=== PATIENT | female | born 1945 | race Caucasian/White ===

== ENCOUNTER 2017-01-02 12:03 | Inpatient (IN) | payer MEDICARE, BC, OTHER ==
[2017-01-02] VITALS (7 sets, daily range): BP systolic 100–128; BP diastolic 53–72; PULSE 75–98; RESP 18; TEMP 99.2–100.8; O2SAT 93–100
[~2017-01-02] VITALS: Ht 162.6 cm; Wt 50.3 kg
[~2017-01-02 12:03] MED LIST: BUDE3CAP PO; DRIS50002 PO; FENO50TA PO; NORT25CA PO; OXYC-360 PO
[2017-01-02 13:42] LABS: AUTOMATED NEUTROPHIL # 19.3 TH/MM3 (1.8-7.7); BASOPHIL # 0.1 TH/MM3 (0-0.2); BASOPHIL % 0.4 % (0.0-2.0); HEMATOCRIT 34.2 % (35.0-46.0); HEMO FLAGS DIFF FINAL; LYMPH % 6.1 % (9.0-44.0); LYMPHOCYTE # 1.3 TH/MM3 (1.0-4.8); MEAN CELL VOLUME 92.1 FL (80.0-100.0); MEAN CORPUSCULAR HEMOGLOBIN 31.1 PG (27.0-34.0); MEAN CORPUSCULAR HGB CONC 33.8 % (32.0-36.0); NEUT % 87.5 % (16.0-70.0); PLATELET COUNT 389 TH/MM3 (150-450); RED BLOOD COUNT 3.71 MIL/MM3 (4.00-5.30); RED CELL DISTRIBUTION WIDTH 14.1 % (11.6-17.2)
[2017-01-02] MEDS ORDERED: cefTRIAXone INJ 1,000 MG in SODIUM CHLORIDE 0.9% INJ 100 ML IV ONE (13:45)
[2017-01-02 13:54] LABS: PROTHROMBIN TIME - PATIENT 11.3 SEC (9.8-11.6)
--- NOTE | 2017-01-02 13:54 | RADRPT ---
EXAM DATE/TIME: 01/02/2017 13:45 [facility] COMPARISON: No previous studies available for comparison. INDICATIONS : Weakness. MEDICAL HISTORY : None. SURGICAL HISTORY : None. ENCOUNTER: Initial ACUITY: 1 day PAIN SCORE: 5/10 LOCATION: Bilateral chest FINDINGS: A single view of the chest demonstrates consolidation right upper lobe in the periphery. Left lung cl ear. Are normal sinus The cardiomediastinal contours are unremarkable. Osseous structures are intact . CONCLUSION: Consolidation in the periphery of the right upper lobe. Jean Carlos Cobian MD on January 02, 2017 at 13:50 Board Certified Radiologist. This report was verified electronically.
[2017-01-02 13:56] LABS: APTT (PATIENT) 29.9 SEC (24.3-30.1)
[2017-01-02 14:03] LABS: ALKALINE PHOSPHATASE 58 U/L (45-117); ALT (GPT) 10 U/L (10-53); ANION GAP 11 MEQ/L (5-15); AST (GOT) 27 U/L (15-37); BICARBONATE 23.6 MEQ/L (21.0-32.0); BLOOD UREA NITROGEN 16 MG/DL (7-18); CHLORIDE 98 MEQ/L (98-107); GLOMERULAR FILTRATION RATE 50 ML/MIN (>89); POTASSIUM 4.1 MEQ/L (3.5-5.1); SODIUM (NA) 133 MEQ/L (136-145); TOTAL BILIRUBIN ADULT 0.8 MG/DL (0.2-1.0)
[2017-01-02] MEDS ORDERED: AZITHROMYCIN INJ 500 MG in SODIUM CHLOR 0.9% 250 ML INJ 250 ML IV ONE (14:30)
[2017-01-02 14:39] LABS: BACTERIA, URINE MANY /hpf; BLOOD, URINE MOD (NEG); COMMENT (UR) CATH-CULTURE IND; CULTURE IF INDICATED CATH CULTURE IND; GLUCOSE,URINE NEG (NEG); KETONE, URINE NEG (NEG); MUCUS URINE FEW /lpf (OCC); NITRITE,URINE POS (NEG); PH, URINE 5.5 (5.0-8.5); SQUAMOUS EPITHELIAL CELL URINE 2 /hpf (0-5); URINE COLOR YELLOW (YELLW/STRAW)
[2017-01-02] MEDS ORDERED: SODIUM CHLOR 0.9% 1000 ML INJ 1,000 ML IV ONE ×2 (15:00→15:15)
--- NOTE | 2017-01-02 15:08 | PD ---
HPI Chief Complaint: General Weakness Time Seen by Provider: 13:03 Travel History International Travel<30 days: No Contact w/Intl Traveler<30days: No Traveled to known affect area: No History of Present Illness HPI Shouldn't is a 71-year-old female brought in by EMS for generalized weakness. Per EMS, she has chronic back pain and often has difficulty getting around, but usually is able to use her walker. For the past few days she has not been able to get herself around. Her called because he was unable to help her. She says she just feels weak all over. She does report some diarrhea and cough. She denies shortness of breath. She complains of back pain, but says it is no worse than her normal pain. She denies any abdominal pain. She has not had any nausea or vomiting. She does say that she has not been eating very much. PFSH Past Medical History Arthritis: Yes (IC arthritis) Asthma: No Autoimmune Disease: No Anxiety: Yes Depression: No Heart Rhythm Problems: No Cancer: No Cardiovascular Problems: Yes (hyperlipemia) High Cholesterol: No COPD: No Cerebrovascular Accident: No Diabetes: No Endocrine: No GERD: No Genitourinary: No Hepatitis: No Hiatal Hernia: No Hypertension: Yes Immune Disorder: No Kidney Stones: No Musculoskeletal: Yes (degenerative disc disease and spinal stenosis) Neurologic: No Psychiatric: Yes (CLAUSTROPHOBIC) Reproductive: No Respiratory: No Immunizations Current: Yes Migraines: No Pancreatitis: Yes Renal Failure: No Seizures: No Sleep Apnea: No Thyroid Disease: No Ulcer: No Menopausal: Yes Past Surgical History Abdominal Surgery: No AICD: No Appendectomy: Yes Body Medical Devices: SCREWS IN R SHOULDER -- REMOVED Cardiac Surgery: No Cholecystectomy: Yes Ear Surgery: No Endocrine Surgery: No Eye Surgery: No Genitourinary Surgery: No Gynecologic Surgery: No Joint Replacement: No Oral Surgery: No Pacemaker: No Thoracic Surgery: No Tonsillectomy: Yes Other Surgery: Yes (03/30 L3-L4 and L4-L5 zoltan--LAMINECTOMY and L4-L5 fusion) Social History Alcohol Use: Yes (ONE DRINK A DAY) Tobacco Use: Yes (05/17 PPD) Substance Use: No Allergies-Medications (Allergen,Severity, Reaction): Coded Allergies: No Known Allergies (Verified , 05/29/14) Reported Meds & Prescriptions Reported Meds & Active Scripts Active Percocet (Oxycodone/Acetaminophen) 5 Mg/325 Mg Tab 1 Tab PO Q6 PRN Budesonide 3 Mg/24 Hr Cap 3 Mg PO DAILY 30 Days Nortriptyline Hcl (Nortriptyline HCl) 25 Mg Cap 25 Mg PO HS 30 Days Tricor (Fenofibrate) 145 Mg Tab 145 Mg PO DAILY 30 Days Reported Drisdol (Ergocalciferol) 50,000 Unt Cap 1 PO WEEKLY Review of Systems Except as stated in HPI: all other systems reviewed are Neg HENT: No: Headaches, Lightheadedness Cardiovascular: No: Chest Pain or Discomfort Respiratory: Positive: Cough, No: Shortness of Breath Gastrointestinal: Positive: Diarrhea, No: Nausea, Vomiting, Abdominal Pain Genitourinary: No: Dysuria Musculoskeletal: Positive: Weakness, Pain, No: Myalgias Skin: No Rash, No Change in Pigmentation Neurologic: Positive: Weakness Physical Exam Narrative GENERAL: Awake and alert, in no acute distress. SKIN: Focused skin assessment warm/dry. No signs of infection. HEAD: Atraumatic. Normocephalic. EYES: Pupils equal and round. No scleral icterus. ENT: No nasal bleeding or discharge. Mucous membranes pink and moist. NECK: Trachea midline. No JVD. CARDIOVASCULAR: Regular rate and rhythm. No murmur appreciated. RESPIRATORY: No accessory muscle use. Clear to auscultation. Breath sounds equal bilaterally. GASTROINTESTINAL: Abdomen soft, non-tender, nondistended. MUSCULOSKELETAL: No obvious deformities. No clubbing. No cyanosis. No edema. NEUROLOGICAL: Awake and alert. No obvious cranial nerve deficits. Motor grossly within normal limits. Normal speech. PSYCHIATRIC: Appropriate mood and affect; insight and judgment normal. Data Data Last Documented VS Vital Signs Date Time Temp Pulse Resp B/P (MAP) Pulse Ox O2 Delivery O2 Flow Rate FiO2 01/02/17 14:05 15 98 Room Air 01/02/17 14:03 100.8 78 100/69 (79) Orders Orders Complete Blood Count With Diff (01/02/17 13:10) Comprehensive Metabolic Panel (01/02/17 13:10) Troponin I (01/02/17 13:10) Prothrombin Time / Inr (Pt) (01/02/17 13:10) Act Partial Throm Time (Ptt) (01/02/17 13:10) Blood Culture (01/02/17 13:10) Lactic Acid (01/02/17 13:10) Chest, Single Ap (01/02/17 ) Ceftriaxone Inj (Rocephin Inj) (01/02/17 13:45) Urinalysis - C+S If Indicated (01/02/17 14:02) Azithromycin Inj (Zithromax Inj) (01/02/17 14:30) Urine Culture (01/02/17 14:00) Sodium Chlor 0.9% 1000 Ml Inj (Ns 1000 M (01/02/17 15:00) Sodium Chlor 0.9% 1000 Ml Inj (Ns 1000 M (01/02/17 15:15) Ondansetron Inj (Zofran Inj) (01/02/17 15:45) ^ Infusion (01/02/17 ) Norepinephrine-Dextrose Drip (Levophed-D (01/02/17 16:00) Terbutaline Inj (Brethine Inj) (01/02/17 16:00) Lactic Acid Sepsis Protocol (01/02/17 15:53) Norepinephrine Inj (Levophed Inj) (01/02/17 15:57) Admit Order (Ed Use Only) (01/02/17 ) Labs Laboratory Tests Test 01/02/17 12:15 01/02/17 14:00 White Blood Count 22.0 TH/MM3 Red Blood Count 3.71 MIL/MM3 Hemoglobin 11.6 GM/DL Hematocrit 34.2 % Mean Corpuscular Volume 92.1 FL Mean Corpuscular Hemoglobin 31.1 PG Mean Corpuscular Hemoglobin Concent 33.8 % Red Cell Distribution Width 14.1 % Platelet Count 389 TH/MM3 Mean Platelet Volume 8.5 FL Neutrophils (%) (Auto) 87.5 % Lymphocytes (%) (Auto) 6.1 % Monocytes (%) (Auto) 6.0 % Eosinophils (%) (Auto) 0.0 % Basophils (%) (Auto) 0.4 % Neutrophils # (Auto) 19.3 TH/MM3 Lymphocytes # (Auto) 1.3 TH/MM3 Monocytes # (Auto) 1.3 TH/MM3 Eosinophils # (Auto) 0.0 TH/MM3 Basophils # (Auto) 0.1 TH/MM3 CBC Comment DIFF FINAL Differential Comment Prothrombin Time 11.3 SEC Prothromb Time International Ratio 1.0 RATIO Activated Partial Thromboplast Time 29.9 SEC Blood Urea Nitrogen 16 MG/DL Creatinine 1.09 MG/DL Random Glucose 104 MG/DL Total Protein 7.2 GM/DL Albumin 2.1 GM/DL Calcium Level 8.7 MG/DL Alkaline Phosphatase 58 U/L Aspartate Amino Transf (AST/SGOT) 27 U/L Alanine Aminotransferase (ALT/SGPT) 10 U/L Total Bilirubin 0.8 MG/DL Sodium Level 133 MEQ/L Potassium Level 4.1 MEQ/L Chloride Level 98 MEQ/L Carbon Dioxide Level 23.6 MEQ/L Anion Gap 11 MEQ/L Estimat Glomerular Filtration Rate 50 ML/MIN Lactic Acid Level 3.4 mmol/L Troponin I LESS THAN 0.02 NG/ML Urine Color YELLOW Urine Turbidity HAZY Urine pH 5.5 Urine Specific [place] 1.019 Urine Protein 30 mg/dL Urine Glucose (UA) NEG mg/dL Urine Ketones NEG mg/dL Urine Occult Blood MOD Urine Nitrite POS Urine Bilirubin NEG Urine Urobilinogen LESS THAN 2.0 MG/DL Urine Leukocyte Esterase LARGE Urine RBC 6 /hpf Urine WBC 112 /hpf Urine WBC Clumps OCC Urine Squamous Epithelial Cells 2 /hpf Urine Bacteria MANY /hpf Urine Mucus FEW /lpf Microscopic Urinalysis Comment CATH-CULTURE IND MDM Medical Decision Making Medical Screen Exam Complete: Yes Emergency Medical Condition: Yes Medical Record Reviewed: Yes Differential Diagnosis Sepsis versus dehydration versus UTI versus pneumonia Narrative Course Patient is a 71-year-old female comes in complaining of generalized weakness. Exam shows no acute abnormalities. IV established, labs sent. Labs show an elevated white blood cell count of 22, lactic acid is 3.4. Urinalysis is positive for UTI. Chest x-ray shows evidence of pneumonia. Patient given Rocephin and azithromycin. Given 3 L of IV fluids. She was given a small dose of morphine for chronic pain as well as some Zofran. Patient continued to be hypotensive. Central line was placed and patient was started on Levophed. Patient admitted for further management. Critical Care Narrative Aggregate critical care time was 40 minutes. Time to perform other separately billable procedures was not included in the critical care time. My time did not include minutes spent treating any other patients simultaneously or on activities that did not directly contribute to the patient's treatment. The services I provided to this patient were to treat and/or prevent clinically significant deterioration that could result in: Serious illness or I provided critical care services requiring my management, as noted below: Chart data review, documentation time, medication orders and management, vital sign assessments/reviewing monitor data, ordering and reviewing lab tests, ordering and interpreting/reviewing x-rays and diagnostic studies, care of the patient and discussion of the patient with the admitting physicians. Procedures Procedure Narrative CENTRAL VENOUS LINE: The site was prepped with Betadine and sterilely draped. It was infiltrated with 1% lidocaine plain. The deep vein was cannulated using normal Seldinger technique. A triple lumen central line was placed in the right IJ site and secured with simple interrupted suture. The site was sterilely dressed. The patient tolerated the procedure well. Diagnosis Primary Impression: Severe sepsis Additional Impressions: Pneumonia Qualified Codes: J18.1 - Lobar pneumonia, unspecified organism Urinary tract infection Qualified Codes: N30.00 - Acute cystitis without hematuria Admitting Information Admitting Physician Requests: Admit Condition: Serious Destiny Amin MD Jan 02, 2017 15:08
[2017-01-02] MEDS ORDERED: ONDANSETRON HCL 4 MG/2 ML VIAL IV PUSH ONE (15:45)
[2017-01-02] MEDS ORDERED: NOREPINEPHRINE 4 MG/4 ML AMP ONE (15:57)
[2017-01-02] MEDS ORDERED: TERBUTALINE INJ 1 MG/ML AMP SQ PRN (16:00)
[2017-01-02] MEDS: NOREPINEPHRINE-DEXTROSE DRIP 250 ML IV PRN (16:12)
[2017-01-02] MEDS: SODIUM CHLOR 0.9% 1000 ML INJ 1,000 ML IV SCH (16:49)
[2017-01-02] MEDS ORDERED: DEXTROSE 50% IN WATER 50 ML VIAL(D50) IV PRN (17:00)
[2017-01-02] MEDS ORDERED: RESP: ALBUTEROL 2.5 MG/IPRATROPIUM 0.5 MG NEB (PRN) INH (17:00)
[2017-01-02] MEDS ORDERED: POTASSIUM PHOSPHATE MONOBASIC 500 MG TAB PO/TUBE PRN (17:00)
[2017-01-02] MEDS ORDERED: POTASSIUM PHOSPHATE MONOBASIC 500 MG TAB PO PRN (17:00)
[2017-01-02] MEDS ORDERED: CHLORHEXIDINE GLUCONATE 2 % 1 PACK (2 CLOTHS) TOP PRN (17:00)
[2017-01-02] MEDS ORDERED: MAGNESIUM SULFATE INJ 4 GM in SODIUM CHLORIDE 0.9% INJ 92 ML IV PRN (17:00)
[2017-01-02] MEDS ORDERED: POTASSIUM PHOSPHATE INJ 30 MMOL in SODIUM CHLOR 0.9% 250 ML INJ 250 ML IV PRN (17:00)
[2017-01-02] MEDS ORDERED: MAGNESIUM SULFATE INJ 2 GM in SODIUM CHLORIDE 0.9% INJ 96 ML IV PRN (17:00)
[2017-01-02] MEDS ORDERED: MAGNESIUM OXIDE 400 MG TAB PO PRN (17:00)
[2017-01-02] MEDS ORDERED: POTASSIUM CHLOR 40 MEQ PREMIX 100 ML IV PRN ×2 (17:00)
[2017-01-02] MEDS ORDERED: MAGNESIUM HYDROXIDE SUSP 30 ML CUP PO PRN (17:00)
[2017-01-02] MEDS ORDERED: ACETAMINOPHEN 325 MG TAB PO PRN (17:00)
[2017-01-02] MEDS ORDERED: SODIUM PHOSPHATE INJ 30 MMOL in SODIUM CHLOR 0.9% 250 ML INJ 240 ML IV PRN (17:00)
[2017-01-02] MEDS ORDERED: POTASSIUM CHLORIDE 25 MEQ EFFERVESCENT TAB PO PRN (17:00)
[2017-01-02] MEDS ORDERED: LACTULOSE SYRUP 20 GM/30 ML CUP PO PRN (17:00)
[2017-01-02] MEDS ORDERED: BISACODYL 10 MG SUPP RECTAL PRN (17:00)
[2017-01-02] MEDS ORDERED: SENNOSIDES 8.6 MG TAB PO PRN (17:00)
[2017-01-02] MEDS ORDERED: POTASSIUM CHLOR 20 MEQ PREMIX 100 ML IV PRN ×2 (17:00)
[2017-01-02] MEDS ORDERED: GLUCAGON 1 MG/ML VIAL OTHER PRN (17:00)
[2017-01-02] MEDS ORDERED: SODIUM CHLORIDE 0.9% FLUSH 10 ML FLUSH IV FLUSH PRN (17:00)
[2017-01-02] MEDS ORDERED: MISCELLANEOUS NURSING INFORMATION XX SCH (17:00)
--- NOTE | 2017-01-02 17:16 | RADRPT ---
EXAM DATE/TIME: 01/02/2017 16:43 [facility] COMPARISON: CHEST SINGLE AP, January 02, 2017, 13:45. INDICATIONS : Central line placment. MEDICAL HISTORY : None. SURGICAL HISTORY : None. ENCOUNTER: Subsequent ACUITY: 1 day PAIN SCORE: 0/10 LOCATION: Bilateral chest FINDINGS: Right IJ line is present with tip overlapping the expected region of the SVC. No definite pneumothora x is seen for technique. There is worsening of airspace process in right mid and upper lung gao. C hronic degenerative changes are present in the right shoulder and not changed. The rest of the examin ation has not significantly changed. CONCLUSION: Worsening airspace process right lung. Kane Evans MD on January 02, 2017 at 17:14 Board Certified Radiologist. This report was verified electronically.
[2017-01-02] MEDS ORDERED: Vancomycin Consult Pharmacy 1 EA OTHER SCH (17:30)
--- NOTE | 2017-01-02 17:30 | HHI.HP ---
HPI Service Critical Care Medicine Primary Care Physician Hi Vidal MD Admission Diagnosis Severe sepsis, pneumonia, UTI Diagnosis: Travel History International Travel<30 Days: No Contact w/Intl Traveler <30 Da: No Traveled to Known Affected Are: No History of Present Illness This is a 71-year-old female brought in by ambulance , with complaints of generalized weakness .She does report some diarrhea and cough. The patient was noted to have malaise and a poor appetite. In the ED vital signs were obtained the patient's systolic blood pressure was noted to be in the 70s. Imaging studies noted a right lower lobe consolidation. The patient had laboratory values revealing WBC count of 22 with a lactic acid of 3.4. In the ED the patient was bolused with 3 L of normal saline and given empiric antibiotics Rocephin and azithromycin, a central line was placed and the patient was started on norepinephrine. Critical care medicine was consulted for management. Upon arrival to the ED the patient was noted have a BP of 112/79 currently on 10 mcgs of norepinephrine, awake alert oriented in no respiratory distress. History PFSH Past Medical History Arthritis: Yes (IC arthritis) Asthma: No Autoimmune Disease: No Anxiety: Yes Depression: No Heart Rhythm Problems: No Cancer: No Cardiovascular Problems: Yes (hyperlipemia) High Cholesterol: No COPD: No Cerebrovascular Accident: No Diabetes: No Endocrine: No GERD: No Genitourinary: No Hepatitis: No Hiatal Hernia: No Hypertension: Yes Immune Disorder: No Kidney Stones: No Musculoskeletal: Yes (degenerative disc disease and spinal stenosis) Neurologic: No Psychiatric: Yes (CLAUSTROPHOBIC) Reproductive: No Respiratory: No Immunizations Current: Yes Migraines: No Pancreatitis: Yes Renal Failure: No Seizures: No Sleep Apnea: No Thyroid Disease: No Ulcer: No Menopausal: Yes Past Surgical History Abdominal Surgery: No AICD: No Appendectomy: Yes Body Medical Devices: SCREWS IN R SHOULDER -- REMOVED Cardiac Surgery: No Cholecystectomy: Yes Ear Surgery: No Endocrine Surgery: No Eye Surgery: No Genitourinary Surgery: No Gynecologic Surgery: No Joint Replacement: No Oral Surgery: No Pacemaker: No Thoracic Surgery: No Tonsillectomy: Yes Other Surgery: Yes (03/30 L3-L4 and L4-L5 zoltan--LAMINECTOMY and L4-L5 fusion) Social History Alcohol Use: Yes (ONE DRINK A DAY) Tobacco Use: Yes (1/2 PPD) Substance Use: No Allergies-Medications Allergies-Medications (Allergen,Severity, Reaction): Coded Allergies: No Known Allergies (Verified , 05/29/14) Reported Meds & Prescriptions Reported Meds & Active Scripts Active Percocet (Oxycodone/Acetaminophen) 5 Mg/325 Mg Tab 1 Tab PO Q6 PRN Budesonide 3 Mg/24 Hr Cap 3 Mg PO DAILY 30 Days Nortriptyline Hcl (Nortriptyline HCl) 25 Mg Cap 25 Mg PO HS 30 Days Tricor (Fenofibrate) 145 Mg Tab 145 Mg PO DAILY 30 Days Reported Drisdol (Ergocalciferol) 50,000 Unt Cap 1 PO WEEKLY ROS Review of Systems Except as stated in HPI: all other systems reviewed are Neg HENT: No: Headaches, Lightheadedness Cardiovascular: No: Chest Pain or Discomfort Respiratory: Positive: Cough, No: Shortness of Breath Gastrointestinal: Positive: Diarrhea, No: Nausea, Vomiting, Abdominal Pain Genitourinary: No: Dysuria Musculoskeletal: Positive: Weakness, Pain, No: Myalgias Skin: No Rash, No Change in Pigmentation Neurologic: Positive: Weakness Past Family Social History Allergies: Coded Allergies: No Known Allergies (Verified , 05/29/14) Physical Exam Vital Signs Vital Signs Date Time Temp Pulse Resp B/P (MAP) Pulse Ox O2 Delivery O2 Flow Rate FiO2 01/02/17 16:12 74 80/54 01/02/17 14:05 15 98 Room Air 01/02/17 14:03 100.8 78 18 100/69 (79) 93 Physical Exam GENERAL: Well-developed well-nourished elderly female alert and responsive. SKIN: Warm and dry. HEAD: Atraumatic. Normocephalic. EYES: Pupils equal and round. No scleral icterus. No injection or drainage. ENT: No nasal bleeding or discharge. Mucous membranes pink and moist. NECK: Trachea midline. No JVD. CARDIOVASCULAR: Normal rate, regular rhythm. RESPIRATORY: No accessory muscle use. Clear to auscultation. Breath sounds equal bilaterally. GASTROINTESTINAL: Abdomen soft, non-tender, nondistended. No guarding. MUSCULOSKELETAL: Extremities without clubbing, cyanosis, or edema. Clubbing of digits. NEUROLOGICAL: Awake and alert. RASS 0. No gross focal/sensory deficits. Follows commands in all 4 extremities. Laboratory Laboratory Tests Test 01/02/17 12:15 01/02/17 14:00 White Blood Count 22.0 Red Blood Count 3.71 Hemoglobin 11.6 Hematocrit 34.2 Mean Corpuscular Volume 92.1 Mean Corpuscular Hemoglobin 31.1 Mean Corpuscular Hemoglobin Concent 33.8 Red Cell Distribution Width 14.1 Platelet Count 389 Mean Platelet Volume 8.5 Neutrophils (%) (Auto) 87.5 Lymphocytes (%) (Auto) 6.1 Monocytes (%) (Auto) 6.0 Eosinophils (%) (Auto) 0.0 Basophils (%) (Auto) 0.4 Neutrophils # (Auto) 19.3 Lymphocytes # (Auto) 1.3 Monocytes # (Auto) 1.3 Eosinophils # (Auto) 0.0 Basophils # (Auto) 0.1 CBC Comment DIFF FINAL Differential Comment Prothrombin Time 11.3 Prothromb Time International Ratio 1.0 Activated Partial Thromboplast Time 29.9 Blood Urea Nitrogen 16 Creatinine 1.09 Random Glucose 104 Total Protein 7.2 Albumin 2.1 Calcium Level 8.7 Alkaline Phosphatase 58 Aspartate Amino Transf (AST/SGOT) 27 Alanine Aminotransferase (ALT/SGPT) 10 Total Bilirubin 0.8 Sodium Level 133 Potassium Level 4.1 Chloride Level 98 Carbon Dioxide Level 23.6 Anion Gap 11 Estimat Glomerular Filtration Rate 50 Lactic Acid Level 3.4 Troponin I LESS THAN 0.02 Urine Color YELLOW Urine Turbidity HAZY Urine pH 5.5 Urine Specific [place] 1.019 Urine Protein 30 Urine Glucose (UA) NEG Urine Ketones NEG Urine Occult Blood MOD Urine Nitrite POS Urine Bilirubin NEG Urine Urobilinogen LESS THAN 2.0 Urine Leukocyte Esterase LARGE Urine RBC 6 Urine WBC 112 Urine WBC Clumps OCC Urine Squamous Epithelial Cells 2 Urine Bacteria MANY Urine Mucus FEW Microscopic Urinalysis Comment CATH-CULTURE IND Date/Time Source Procedure Growth Status 01/02/17 13:29 Blood Peripheral Aerobic Blood Culture Pending Received 01/02/17 13:29 Blood Peripheral Anaerobic Blood Culture Pending Received 01/02/17 14:00 Urine Catheterized Urine Urine Culture Pending Received Result Diagram: 01/02/17 1215 01/02/17 1215 Imaging Chest x-ray consolidation right upper lobe Septic Shock Reassessment Heart: Regular rate and rhythm Lungs: Clear Skin: Warm, [place] Peripheral Pulses: Bounding Right Radial Bounding Left Radial Bounding Right Dorsalis Pedis Bounding Left Dorsalis Pedis Bounding Right Posterior Tibial Bounding Left Posterior Tibial Capillary Refill: Brisk, <2 seconds Caprini VTE Risk Assessment Caprini VTE Risk Assessment: No/Low Risk (score <= 1) Caprini Risk Assessment Model Point Value = 1 Point Value = 2 Point Value = 3 Point Value = 5 Age 41-60 Minor surgery BMI > 25 kg/m2 Swollen legs Varicose veins or History of unexplained or recurrent spontaneous Oral contraceptives or hormone replacement Sepsis (< 1 month) Serious lung disease, including pneumonia (< 1 month) Abnormal pulmonary function Acute myocardial infarction Congestive heart failure (< 1 month) History of inflammatory bowel disease Medical patient at bed rest Age 61-74 Arthroscopic surgery Major open surgery (> 45 min) Laparoscopic surgery (> 45 min) Malignancy Confined to bed (> 72 hours) Immobilizing plaster cast Central venous access Age >= 75 History of VTE Family history of VTE Factor V Leiden Prothrombin [id number] Lupus anticoagulant Anticardiolipin antibodies Elevated serum homocysteine Heparin-induced thrombocytopenia Other congenital or acquired thrombophilia Stroke (< 1 month) Elective arthroplasty Hip, pelvis, or leg fracture Acute spinal cord injury (< 1 month) Prophylaxis Regimen Total Risk Factor Score Risk Level Prophylaxis Regimen 0-1 Low Early ambulation 2 Moderate Order ONE of the following: *Sequential Compression Device (SCD) *Heparin 5000 units SQ BID 3-4 Higher Order ONE of the following medications: *Heparin 5000 units SQ TID *Enoxaparin/Lovenox 40 mg SQ daily (WT < 150 kg, CrCl > 30 mL/min) *Enoxaparin/Lovenox 30 mg SQ daily (WT < 150 kg, CrCl > 10-29 mL/min) *Enoxaparin/Lovenox 30 mg SQ BID (WT < 150 kg, CrCl > 30 mL/min) AND/OR *Sequential Compression Device (SCD) 5 or more Highest Order ONE of the following medications: *Heparin 5000 units SQ TID (Preferred with Epidurals) *Enoxaparin/Lovenox 40 mg SQ daily (WT < 150 kg, CrCl > 30 mL/min) *Enoxaparin/Lovenox 30 mg SQ daily (WT < 150 kg, CrCl > 10-29 mL/min) *Enoxaparin/Lovenox 30 mg SQ BID (WT < 150 kg, CrCl > 30 mL/min) AND *Sequential Compression Device (SCD) Assessment and Plan Assessment and Plan Assessment Severe sepsis Pneumonia versus UTI COPD Neurologic: Avoid sedatives Neurochecks per ICU protocol Acetaminophen 650 mg every 6 hours when necessary for pain Respiratory: Obtain O2 sat greater than 92%. 02 1-4 L/m Wean as tolerated Bronchodilators every 6 hours scheduled, every 2 hours when necessary Incentive spirometry Obtain Sputum culture Cardiovascular: Maintain MAP greater than 65 mmHg Wean norepinephrine Renal: Insert oliveira -- Strict I/Os FEN/GI: Continue normal saline at 84 cc/hour Heme/ID: Monitor WBC Begin Vanc, Zosyn ,Azithromycin Follow-up blood urine and obtain sputum cultures Obtain influenza A and B, Legionella and pneumococcal [id number] results Endocrine: Glucose monitoring per ICU protocol -- SSI Prophylaxis: GI Prophylaxis Protonix DVT Prophylaxis -- SCDs Heparin twice a day Lines: Right IJ placed in the ED Dr. Amin, peripheral IVs 2 Dispo: This patient remains critically ill with one or more organ systems which are or may become a threat to life. I have spent in excess of 30 minutes discontinuously in the care and management of this patient. This time is exclusive of procedures, and includes, but is not limited to, evaluation of the patient, review of the medical record, discussions with family, consultants, nursing staff, or respiratory therapy, and documentation in the medical record. Code Status Full Discussed Condition With Dr. Hinds , ED RN and patient at bedside Carlee Luna MD Jan 02, 2017 17:30
[2017-01-02] MEDS ORDERED: VANCOMYCIN 1,000 MG/NS 250 ML IV ONE ×2 (18:00)
[2017-01-02] MEDS: INSULIN ASPART SUPPLEMENTAL SCALE SQ SCH (20:47)
[2017-01-02] MEDS: DOCUSATE SODIUM 50 MG/SENNA 8.6 MG TAB PO SCH (20:47)
[2017-01-02] MEDS: SODIUM CHLORIDE 0.9% FLUSH 10 ML FLUSH IV FLUSH SCH (21:00)
[2017-01-02] MEDS: RESP: ALBUTEROL 2.5 MG/IPRATROPIUM 0.5 MG NEB (SCH) INH (22:02)
[2017-01-03] VITALS (14 sets, daily range): BP systolic 80–99; BP diastolic 52–64; PULSE 80–96; RESP 20–22; TEMP 99–100; O2SAT 93–99
[2017-01-03] MEDS: RESP: ALBUTEROL 2.5 MG/IPRATROPIUM 0.5 MG NEB (SCH) INH ×3 (03:34→15:16)
[2017-01-03] MEDS: CHLORHEXIDINE GLUCONATE 2 % 1 PACK (2 CLOTHS) TOP SCH (04:00)
[2017-01-03 04:28] LABS: AUTOMATED NEUTROPHIL # 17.5 TH/MM3 (1.8-7.7); BASOPHIL % 0.2 % (0.0-2.0); HEMATOCRIT 28.8 % (35.0-46.0); HEMO FLAGS DIFF FINAL; LYMPH % 5.1 % (9.0-44.0); MEAN CELL VOLUME 91.7 FL (80.0-100.0); MEAN CORPUSCULAR HGB CONC 33.8 % (32.0-36.0); MONO % 4.4 % (0.0-8.0); NEUT % 90.3 % (16.0-70.0); PLATELET COUNT 352 TH/MM3 (150-450); RED BLOOD COUNT 3.14 MIL/MM3 (4.00-5.30); RED CELL DISTRIBUTION WIDTH 14.2 % (11.6-17.2); WHITE BLOOD COUNT 19.4 TH/MM3 (4.0-11.0)
[2017-01-03 04:52] LABS: BICARBONATE 23.1 MEQ/L (21.0-32.0); CALCIUM-PROTEIN CORRECTED 8.3 MG/DL (8.5-10.1); MAGNESIUM 1.4 MG/DL (1.5-2.5); POTASSIUM 3.4 MEQ/L (3.5-5.1); TOTAL BILIRUBIN ADULT 0.9 MG/DL (0.2-1.0)
[2017-01-03] MEDS: PIPERACIL-TAZO 3.375 GM PREMIX 50 ML IV SCH ×4 (05:09→22:16)
[2017-01-03] MEDS: HEPARIN SODIUM - SQ 10,000 UNITS/ML VIAL SQ SCH ×2 (05:09→17:53)
[2017-01-03] MEDS: INSULIN ASPART SUPPLEMENTAL SCALE SQ SCH ×4 (05:10→21:00)
[2017-01-03] MEDS ORDERED: PANTOPRAZOLE SOD 40 MG DELAYED RELEASE TAB PO SCH (09:00)
[2017-01-03] MEDS: DOCUSATE SODIUM 50 MG/SENNA 8.6 MG TAB PO SCH ×2 (09:00→22:13)
[2017-01-03] MEDS: SODIUM CHLORIDE 0.9% FLUSH 10 ML FLUSH IV FLUSH SCH ×2 (09:00→22:16)
[2017-01-03] MEDS: SODIUM CHLOR 0.9% 1000 ML INJ 1,000 ML IV SCH ×2 (11:00→22:21)
[2017-01-03] MEDS: VANCOMYCIN 1,000 MG/NS 250 ML IV SCH ×2 (11:00)
[2017-01-03] MEDS ORDERED: AZITHROMYCIN INJ 500 MG in SODIUM CHLOR 0.9% 250 ML INJ 250 ML IV SCH (14:00)
--- NOTE | 2017-01-03 17:24 | HHI.CCPN ---
Subjective Remarks/Hospital Course Hospital Course: This is a 71-year-old female brought in by ambulance , with complaints of generalized weakness .She does report some diarrhea and cough. The patient was noted to have malaise and a poor appetite. In the ED vital signs were obtained the patient's systolic blood pressure was noted to be in the 70s. Imaging studies noted a right lower lobe consolidation. The patient had laboratory values revealing WBC count of 22 with a lactic acid of 3.4. In the ED the patient was bolused with 3 L of normal saline and given empiric antibiotics Rocephin and azithromycin, a central line was placed and the patient was started on norepinephrine. Critical care medicine was consulted for management. Upon arrival to the ED the patient was noted have a BP of 112/79 currently on 10 mcgs of norepinephrine, awake alert oriented in no respiratory distress. Subjective: 01/03: clinically improved. off norepinephrine. tolerating regular diet. subjectively feels better. no complaints. ROS negative. urine growing GNRs, speciation to follow. Objective Vital Signs Date Time Temp Pulse Resp B/P (MAP) Pulse Ox O2 Delivery O2 Flow Rate FiO2 01/03/17 07:22 94 01/03/17 06:00 96 01/02/17 22:02 21 01/02/17 22:00 99.2 18 105/53 (70) 01/02/17 17:26 Nasal Cannula 3.00 Intake and Output 01/03/17 01/03/17 01/04/17 08:00 16:00 00:00 Intake Total 2607 ml Output Total 950 ml Balance 1657 ml Result Diagram: 01/03/17 0400 01/03/17 0400 Other Results Microbiology Date/Time Source Procedure Growth Status 01/02/17 14:00 Urine Catheterized Urine Legionella Antigen - Final PRESUMPTIVE NEGATIVE FOR LEGIONELLA P... Complete 01/02/17 14:00 Urine Catheterized Urine Streptococcus pneumoniae Antigen (M - Final PRESUMPTIVE NEGATIVE FOR STREPTOCOCCU... Complete Imaging Chest x-ray consolidation right upper lobe Objective Remarks GENERAL: elderly female alert and responsive. SKIN: Warm and dry. HEAD: Atraumatic. Normocephalic. EYES: Pupils equal and round. No scleral icterus. No injection or drainage. ENT: No nasal bleeding or discharge. Mucous membranes pink and moist. NECK: Trachea midline. No JVD. right IJ TLC clean dry intact. CARDIOVASCULAR: Normal rate, regular rhythm. RESPIRATORY: No accessory muscle use. equal chest rise. GASTROINTESTINAL: Abdomen soft, non-tender, nondistended. No guarding. MUSCULOSKELETAL: Extremities without cyanosis, or edema. Clubbing of digits. NEUROLOGICAL: Awake and alert. RASS 0. No gross focal/sensory deficits. Follows commands in all 4 extremities. A/P Assessment and Plan Assessment: 71yF with resolving septic shock secondary to urinary tract infection. Neurologic: Avoid sedatives Neurochecks per ICU protocol Acetaminophen 650 mg every 6 hours when necessary for pain Respiratory: Obtain O2 sat greater than 92%. 02 1-4 L/m Wean as tolerated Bronchodilators every 6 hours scheduled, every 2 hours when necessary Incentive spirometry Cardiovascular: Septic Shock- resolving Maintain MAP greater than 65 mmHg Norepinephrine currently on hold. keep cvl for now, keep in ICU with close BP monitoring in case needs additional vasopressor support. Renal: d/c Goins -- Strict I/Os FEN/GI: saline lock ivf. heart healthy diet as tolerated Heme/ID: Urinary Tract Infection Resolving Septic Shock Monitor WBC continue Vanc, Zosyn ,Azithromycin await speciation of urine culture would plan to d/c vanc at 48h if no G+ and narrow spectrum as soon as sensitivities return Endocrine: Glucose monitoring per ICU protocol -- SSI Prophylaxis: GI Prophylaxis d/c protonix, no evidence based indication at this time. tolerating regular diet. DVT Prophylaxis -- SCDs Heparin twice a day Lines: Right IJ placed in the ED Dr. Amin, peripheral IVs 2. keep cvl today given possible ongoing need for vasopressors as shock resolves slowly. Dispo: would consult hospitalist service. on this projected course, should be ready to leave ICU tomorrow if she remains on pathway. Jag Arce MD Jan 03, 2017 17:24
[2017-01-03] MEDS ORDERED: ALBUMIN HUMAN 5% 25 GM/500 ML BOTTLE IV ONE (20:45)
[2017-01-04] VITALS (21 sets, daily range): BP systolic 76–117; BP diastolic 50–61; PULSE 74–92; RESP 20–30; TEMP 99.1–99.9; O2SAT 78–100
[2017-01-04] MEDS: RESP: ALBUTEROL 2.5 MG/IPRATROPIUM 0.5 MG NEB (SCH) INH ×4 (03:26→20:45)
[2017-01-04] MEDS: CHLORHEXIDINE GLUCONATE 2 % 1 PACK (2 CLOTHS) TOP SCH (04:00)
[2017-01-04] MEDS: VANCOMYCIN 1,000 MG/NS 250 ML IV SCH ×2 (05:00)
[2017-01-04] MEDS: HEPARIN SODIUM - SQ 10,000 UNITS/ML VIAL SQ SCH ×2 (06:00→18:07)
[2017-01-04] MEDS: PIPERACIL-TAZO 3.375 GM PREMIX 50 ML IV SCH (06:00)
[2017-01-04 06:25] LABS: HEMATOCRIT 23.5 % (35.0-46.0); MEAN CELL VOLUME 91.6 FL (80.0-100.0); MEAN CORPUSCULAR HEMOGLOBIN 30.9 PG (27.0-34.0); MEAN CORPUSCULAR HGB CONC 33.8 % (32.0-36.0); PLATELET COUNT 296 TH/MM3 (150-450); RED BLOOD COUNT 2.57 MIL/MM3 (4.00-5.30); REVIEW FLAG FINAL; WHITE BLOOD COUNT 14.6 TH/MM3 (4.0-11.0)
[2017-01-04] MEDS: INSULIN ASPART SUPPLEMENTAL SCALE SQ SCH ×4 (07:00→20:33)
[2017-01-04 07:25] LABS: BICARBONATE 22.1 MEQ/L (21.0-32.0)
[2017-01-04 07:32] LABS: POTASSIUM 2.7 MEQ/L (3.5-5.1)
[2017-01-04] MEDS: DOCUSATE SODIUM 50 MG/SENNA 8.6 MG TAB PO SCH ×3 (08:11→20:16)
[2017-01-04] MEDS: SODIUM CHLORIDE 0.9% FLUSH 10 ML FLUSH IV FLUSH SCH ×2 (08:12→20:16)
[2017-01-04 10:32] LABS: MAGNESIUM 1.6 MG/DL (1.5-2.5)
[2017-01-04] MEDS: PIPERACIL-TAZO 4.5 GM PREMIX 100 ML IV SCH ×3 (10:46→22:34)
[2017-01-04] MEDS: POTASSIUM CHLORIDE INJ 30 MEQ in SODIUM CHLOR 0.9% 1000 ML INJ 1,000 ML IV SCH ×2 (14:00→20:14)
--- NOTE | 2017-01-04 16:06 | PD.ID.CON ---
History of Present Illness Service ID Consult Requested By Dr Arce Reason for Consult ESBL + Kleb pneumo UTI Primary Care Physician Hi Vidal MD Diagnoses: History of Present Illness 71 yo tobacco + female presetns yday with weakess, SOB and dry cough x 1 week On presentation she is hypotensive, low grade fever, lactic acidosis of 3.4 and leukocytosis with WBC of 22 K CXR noted a right lower lobe consolidation. Pt was stated on empiric antibiotics Rocephin and azithromycin She was put on pressors, which were weaned off but her blood pressure still runs low Denies urinary smx, no disuria, no hematuria; UA with prominent pyuria and urine clx with > 100K CFU of ESBL + organism Her abx were switched to zosyn Still unable to expectorate He is on room air BP is still somewhat low Review of Systems Except as stated in HPI: all other systems reviewed are Neg Past Family Social History Allergies: Coded Allergies: No Known Allergies (Verified , 05/29/14) Past Medical History dyslipidemia IBS DJD spinal stenosis tobaccoism osteorthritis Past Surgical History L spine laminectomy , fusion remote cholecystectomy hysterectomy Active Ordered Medications Medications where reviewed in EMR Antibiotics Include: zosyn Family History reviewed, non contributory Social History + Tobacco. 1/2 PPD + ETOH. 1 drinnk /day No Illicit Drugs. Physical Exam Vital Signs Vital Signs Date Time Temp Pulse Resp B/P (MAP) Pulse Ox O2 Delivery O2 Flow Rate FiO2 01/04/17 14:00 79 01/04/17 13:00 80 01/04/17 12:00 99.7 79 24 93/52 (66) 97 01/04/17 12:00 79 01/04/17 11:00 77 01/04/17 11:00 77 25 97/55 (69) 96 01/04/17 10:30 80 01/04/17 10:00 89 24 89/52 (64) 100 01/04/17 10:00 89 01/04/17 09:00 88 01/04/17 09:00 88 23 117/51 (73) 92 01/04/17 08:00 99.9 84 29 93/60 (71) 94 01/04/17 08:00 84 01/04/17 07:51 97 01/04/17 07:00 82 24 93/56 (68) 91 01/04/17 07:00 82 93/56 01/04/17 06:00 74 01/04/17 04:00 99.1 89 20 96/61 (73) 93 01/04/17 04:00 89 01/04/17 02:00 86 01/04/17 00:00 90 01/04/17 00:00 99.3 90 22 96/60 (72) 01/03/17 22:00 92 01/03/17 20:00 80 01/03/17 20:00 99.2 86 22 84/54 (64) 01/03/17 19:50 99 21 01/03/17 18:00 96 01/03/17 17:48 96 82/53 01/03/17 16:00 89 01/03/17 16:00 99.0 89 20 80/52 (61) 93 Physical Exam GCONSTITUTIONAL/GENERAL: This is an thion elderly femeale patient, in no apparent distress. TUBES/LINES/DRAINS: SKIN: No jaundice, rashes, or lesions. Skin temperature appropriate. Not diaphoretic. HEAD: Atraumatic. Normocephalic. EYES: Pupils equal and round and reactive. Extraocular motions intact. No scleral icterus. No injection or drainage. Fundi not examined. ENT: Hearing grossly normal. Nose without bleeding or purulent drainage. Throat without visible erythema, exudates, masses, or lesions. NECK: Trachea midline. Supple, nontender. CARDIOVASCULAR: Regular rate and rhythm without murmurs, gallops, or rubs. No JVD. Peripheral pulses symmetric. RESPIRATORY/CHEST: Symmetric, unlabored respirations. Clear to auscultation. Breath sounds equal bilaterally. No wheezes, rales, or rhonchi. GASTROINTESTINAL: Abdomen soft, non-tender, nondistended. No hepato-splenomegaly , or palpable masses. No guarding. Bowel sounds present. GENITOURINARY: Without palpable bladder distension. MUSCULOSKELETAL: Extremities without clubbing, cyanosis, or edema. No joint tenderness or effusion noted. No calf tenderness. No mottling or clubbing. LYMPHATICS: No palpable cervical or supraclavicular adenopathy. NEUROLOGICAL: Awake and alert. Motor and sensory grossly within normal limits. Follows commands. Clear speech. Moves all extremities. PSYCHIATRIC: No obvious anxiety/depression. no apparent hallucinations or other psychotic thought process. Laboratory Laboratory Tests Test 01/04/17 05:40 White Blood Count 14.6 Red Blood Count 2.57 Hemoglobin 7.9 Hematocrit 23.5 Mean Corpuscular Volume 91.6 Mean Corpuscular Hemoglobin 30.9 Mean Corpuscular Hemoglobin Concent 33.8 Red Cell Distribution Width 14.0 Platelet Count 296 Mean Platelet Volume 8.3 Blood Urea Nitrogen 9 Creatinine 0.86 Random Glucose 102 Calcium Level 7.6 Sodium Level 138 Potassium Level 2.7 Chloride Level 107 Carbon Dioxide Level 22.1 Anion Gap 9 Estimat Glomerular Filtration Rate 65 Phosphorus Level 1.8 Magnesium Level 1.6 Date/Time Source Procedure Growth Status 01/02/17 13:29 Blood Peripheral Aerobic Blood Culture - Preliminary NO GROWTH IN 2 DAYS Resulted 01/02/17 13:29 Blood Peripheral Anaerobic Blood Culture - Preliminary NO GROWTH IN 2 DAYS Resulted 01/02/17 14:00 Urine Catheterized Urine Legionella Antigen - Final PRESUMPTIVE NEGATIVE FOR LEGIONELLA P... Complete 01/02/17 14:00 Urine Catheterized Urine Streptococcus pneumoniae Antigen (M - Final PRESUMPTIVE NEGATIVE FOR STREPTOCOCCU... Complete Result Diagram: 01/04/17 0540 01/04/17 0540 Imaging Last Impressions Chest X-Ray 01/02/17 0000 Signed Impressions: Service Date/Time: Monday, January 02, 2017 16:43 - CONCLUSION: Worsening airspace process right lung. Kane Evans MD Assessment and Plan Assessment and Plan RLL PNA ? ethiology: pr is unable to expectorate UTI ESBL + Kleb pneumo REC's: dc zosyn start Ertapenem cont azithromycin chk influenza AG sputum clx if feasible Discussed Condition With Esme Dean MD Jan 04, 2017 16:06
[2017-01-04] MEDS ORDERED: MISCELLANEOUS PHARMACY INFORMATION XX PRN (16:15)
[2017-01-04] MEDS ORDERED: ASP: Documented ESBL, MDR A baumannii or P. aeruginosa PRN (16:15)
--- NOTE | 2017-01-04 16:47 | HHI.PR ---
Subjective Remarks patient awake and aklert, feels weak no abdominal null, nausea or vomiting states history of recurrent UTI- had hysterectomy in the past now having loose stools- watery Objective Vitals Vital Signs Date Time Temp Pulse Resp B/P (MAP) Pulse Ox O2 Delivery O2 Flow Rate FiO2 01/04/17 14:00 79 01/04/17 13:00 80 01/04/17 12:00 99.7 79 24 93/52 (66) 97 01/04/17 12:00 79 01/04/17 11:00 77 01/04/17 11:00 77 25 97/55 (69) 96 01/04/17 10:30 80 01/04/17 10:00 89 24 89/52 (64) 100 01/04/17 10:00 89 01/04/17 09:00 88 01/04/17 09:00 88 23 117/51 (73) 92 01/04/17 08:00 99.9 84 29 93/60 (71) 94 01/04/17 08:00 84 01/04/17 07:51 97 01/04/17 07:00 82 24 93/56 (68) 91 01/04/17 07:00 82 93/56 01/04/17 06:00 74 01/04/17 04:00 99.1 89 20 96/61 (73) 93 01/04/17 04:00 89 01/04/17 02:00 86 01/04/17 00:00 90 01/04/17 00:00 99.3 90 22 96/60 (72) 01/03/17 22:00 92 01/03/17 20:00 80 01/03/17 20:00 99.2 86 22 84/54 (64) 01/03/17 19:50 99 21 01/03/17 18:00 96 01/03/17 17:48 96 82/53 I/O 01/03/17 01/03/17 01/03/17 01/04/17 01/04/17 01/04/17 07:00 15:00 23:00 07:00 15:00 23:00 Intake Total 2607 ml 250 ml 2958 ml 235 ml 250 ml Output Total 950 ml 1250 ml 1200 ml Balance 1657 ml 250 ml 1708 ml -965 ml 250 ml Intake Oral 400 ml 600 ml IV Total 2207 ml 250 ml 1858 ml 235 ml 250 ml Albumin 500 ml Output Urine Total 950 ml 1250 ml 1200 ml # Bowel Movements 1 Result Diagram: 01/04/17 0540 01/04/17 0540 Imaging Last Impressions Chest X-Ray 01/02/17 0000 Signed Impressions: Service Date/Time: Monday, January 02, 2017 16:43 - CONCLUSION: Worsening airspace process right lung. Kane Evans MD Objective Remarks awake and alert but appears weak, oriented x 3 anicteric right IJ line in place dry oral mucosa, no nuchal rigidity lungs- no raels or wheezes regular rhythm abdomen soft, nontender, good bowel sounds,extremiteis no edema moves all extremities spontaneously no neuro deficits Urinary Catheter: Yes Assessment to: Continue Oliveira insert reason: Measure Accurate Output Date of Insertion: Jan 02, 2017 A/P Assessment and Plan Severe sepsis- secondary to UTI- per patient history of recurrent UTI in the past now with ESBL secondary to Pneumonia- + infiltrates, + cough start IVF - restart Levophed if needed - on IV antiboitcs - ff sputum cultures Dr. Bower ff Diarrhea- restart IVF- replace volume = C diff - needed Hypokalemia- due to GI loss - electrolyte protocol per ICU HYpophosphatemia - IV Phosphorous. recheck in am Respiratory: Obtain O2 sat greater than 92%. 02 1-4 L/m Wean as tolerated Bronchodilators every 6 hours scheduled, every 2 hours when necessary Incentive spirometry Cardiovascular: Maintain MAP greater than 65 mmHg Wean norepinephrine Renal: Insert oliveira -- Strict I/Os Endocrine: Glucose monitoring per ICU protocol -- SSI Prophylaxis: GI Prophylaxis Protonix DVT Prophylaxis -- SCDs Heparin twice a day Lines: Right IJ placed in the ED Dr. Amin, peripheral IVs 2 Kanwal Dunn MD Jan 04, 2017 16:47
[2017-01-04] MEDS: NOREPINEPHRINE-DEXTROSE DRIP 250 ML IV PRN ×2 (17:00→18:27)
[2017-01-04] MEDS ORDERED: POTASSIUM PHOSPHATE INJ 15 MMOL in SODIUM CHLORIDE 0.9% INJ 150 ML IV ONE (20:00)
[2017-01-04] MEDS: AZITHROMYCIN INJ 500 MG in SODIUM CHLOR 0.9% 250 ML INJ 250 ML IV SCH (20:15)
[2017-01-04] MEDS: ERTAPENEM INJ 1,000 MG in SODIUM CHLORIDE 0.9% INJ 100 ML IV SCH (20:15)
[2017-01-04 22:52] LABS: POTASSIUM 3.4 MEQ/L (3.5-5.1)
[2017-01-05] VITALS (19 sets, daily range): BP systolic 89–109; BP diastolic 59–67; PULSE 70–85; RESP 23–34; TEMP 99–99.3; O2SAT 93–98
[2017-01-05] MEDS: POTASSIUM CHLORIDE INJ 30 MEQ in SODIUM CHLOR 0.9% 1000 ML INJ 1,000 ML IV SCH ×2 (03:43→23:18)
[2017-01-05] MEDS: CHLORHEXIDINE GLUCONATE 2 % 1 PACK (2 CLOTHS) TOP SCH (03:43)
[2017-01-05] MEDS: RESP: ALBUTEROL 2.5 MG/IPRATROPIUM 0.5 MG NEB (SCH) INH ×4 (04:00→20:07)
[2017-01-05] MEDS: HEPARIN SODIUM - SQ 10,000 UNITS/ML VIAL SQ SCH ×2 (05:35→17:57)
[2017-01-05] MEDS: PIPERACIL-TAZO 4.5 GM PREMIX 100 ML IV SCH ×3 (05:35→17:00)
[2017-01-05] MEDS: INSULIN ASPART SUPPLEMENTAL SCALE SQ SCH ×4 (06:26→21:00)
[2017-01-05 07:07] LABS: HEMATOCRIT 23.2 % (35.0-46.0); MEAN CELL VOLUME 92.2 FL (80.0-100.0); MEAN CORPUSCULAR HEMOGLOBIN 30.4 PG (27.0-34.0); MEAN CORPUSCULAR HGB CONC 32.9 % (32.0-36.0); PLATELET COUNT 362 TH/MM3 (150-450); RED BLOOD COUNT 2.52 MIL/MM3 (4.00-5.30); RED CELL DISTRIBUTION WIDTH 14.5 % (11.6-17.2); REVIEW FLAG FINAL
[2017-01-05 07:27] LABS: BICARBONATE 20.7 MEQ/L (21.0-32.0); MAGNESIUM 1.5 MG/DL (1.5-2.5); POTASSIUM 4.3 MEQ/L (3.5-5.1)
[2017-01-05] MEDS: SODIUM CHLORIDE 0.9% FLUSH 10 ML FLUSH IV FLUSH SCH ×2 (09:00→20:33)
[2017-01-05] MEDS: DOCUSATE SODIUM 50 MG/SENNA 8.6 MG TAB PO SCH ×2 (09:00→20:33)
--- NOTE | 2017-01-05 10:36 | HHI.PR ---
Subjective Remarks patient clinically better- MS sharp, taking good po having loose stools, non bloody Objective Vitals Vital Signs Date Time Temp Pulse Resp B/P (MAP) Pulse Ox O2 Delivery O2 Flow Rate FiO2 01/05/17 08:00 98 01/05/17 06:00 81 01/05/17 04:00 85 01/05/17 04:00 99.0 78 23 104/65 (78) 94 01/05/17 02:00 81 01/05/17 00:00 82 01/05/17 00:00 99.0 82 23 95/64 (74) 96 01/04/17 22:00 80 01/04/17 20:45 99 21 01/04/17 20:00 99.4 83 22 95/61 (72) 96 01/04/17 20:00 83 01/04/17 18:27 90 83/53 01/04/17 18:00 87 01/04/17 18:00 87 82/52 01/04/17 17:00 92 30 77/51 (60) 93 01/04/17 17:00 92 01/04/17 17:00 95 77/51 01/04/17 16:00 99.9 78 27 76/52 (60) 98 01/04/17 16:00 78 01/04/17 15:00 82 01/04/17 15:00 82 30 78/52 (61) 98 01/04/17 14:00 79 26 77/50 (59) 78 01/04/17 14:00 79 01/04/17 13:00 80 01/04/17 13:00 80 28 77/52 (60) 95 01/04/17 12:00 99.7 79 24 93/52 (66) 97 01/04/17 12:00 79 01/04/17 11:00 77 01/04/17 11:00 77 25 97/55 (69) 96 I/O 01/04/17 01/04/17 01/04/17 01/05/17 01/05/17 01/05/17 07:00 15:00 23:00 07:00 15:00 23:00 Intake Total 235 ml 250 ml 830 ml 1630 ml Output Total 1200 ml Balance -965 ml 250 ml 830 ml 1630 ml Intake Oral 480 ml 380 ml IV Total 235 ml 250 ml 350 ml 1250 ml Output Urine Total 1200 ml # Voids 5 3 # Bowel Movements 1 3 3 Result Diagram: 01/05/17 0550 01/05/17 0550 Imaging Last Impressions Chest X-Ray 01/02/17 0000 Signed Impressions: Service Date/Time: Monday, January 02, 2017 16:43 - CONCLUSION: Worsening airspace process right lung. Kane Evans MD Objective Remarks awake and alert b- more interactive and feisty oriented x 3 anicteric right IJ line in place dry oral mucosa, no nuchal rigidity no nuchal rigidity lungs- no rales or wheezes regular rhythm abdomen soft, nontender, good bowel sounds extremities no edema moves all extremities spontaneously no neuro deficits Assessment to: Remove Date of Insertion: Jan 02, 2017 Date of Removal: Jan 04, 2017 A/P Assessment and Plan Severe sepsis- still requiring low dose Levophed secondary to UTI- per patient history of recurrent UTI in the past now with ESBL secondary to Pneumonia- + infiltrates, + cough - continue IVF 125 cc/hr - restart Levophed if needed - on IV antiboitcs- on Ertapenem/Zosyn/Zithromax - ff sputum cultures Dr. Bower ff Diarrhea- r/o C diff replace volume -stoos sent- pending Hypokalemia- - improved - electrolyte protocol per ICU HYpophosphatemia- imrpoved - replaced. and ff Anemia- hypotensive requiring Levophed - will give 1 unit RBC- may help with increasing BP Respiratory: Obtain O2 sat greater than 92%. 02 1-4 L/m Wean as tolerated Bronchodilators every 6 hours scheduled, every 2 hours when necessary Incentive spirometry Cardiovascular: Maintain MAP greater than 65 mmHg Wean norepinephrine as tolerated Renal: I- oliveira out 01/04- patient voiding Endocrine: Glucose monitoring per ICU protocol -- SSI Prophylaxis: GI Prophylaxis Protonix DVT Prophylaxis -- SCDs Heparin twice a day Patient MS improving still requiring Levophed, ongoing loose stools but more formed Kanwal Dunn MD Jan 05, 2017 10:36
[2017-01-05 13:15] LABS: C. DIFF EPI 027 PRESUMPTIVE NEGATIVE (NEGATIVE)
[2017-01-05] MEDS ORDERED: PHARMACY ORDERED LAB ONE (16:45)
[2017-01-05] MEDS: ERTAPENEM INJ 1,000 MG in SODIUM CHLORIDE 0.9% INJ 100 ML IV SCH (20:33)
[2017-01-05] MEDS: AZITHROMYCIN INJ 500 MG in SODIUM CHLOR 0.9% 250 ML INJ 250 ML IV SCH (20:34)
[2017-01-06] VITALS (12 sets, daily range): BP systolic 85–110; BP diastolic 54–66; PULSE 64–81; RESP 26–33; TEMP 98.5–99.1; O2SAT 79–99
[2017-01-06] MEDS: PIPERACIL-TAZO 4.5 GM PREMIX 100 ML IV SCH ×5 (00:22→21:39)
[2017-01-06] MEDS: RESP: ALBUTEROL 2.5 MG/IPRATROPIUM 0.5 MG NEB (SCH) INH ×4 (03:36→21:14)
[2017-01-06] MEDS: CHLORHEXIDINE GLUCONATE 2 % 1 PACK (2 CLOTHS) TOP SCH ×2 (04:00→21:23)
[2017-01-06] MEDS: HEPARIN SODIUM - SQ 10,000 UNITS/ML VIAL SQ SCH ×2 (06:20→18:49)
[2017-01-06] MEDS: INSULIN ASPART SUPPLEMENTAL SCALE SQ SCH ×4 (06:21→19:39)
[2017-01-06] MEDS: NOREPINEPHRINE-DEXTROSE DRIP 250 ML IV PRN (06:21)
[2017-01-06 06:48] LABS: HEMATOCRIT 27.9 % (35.0-46.0); MEAN CELL VOLUME 90.5 FL (80.0-100.0); MEAN CORPUSCULAR HEMOGLOBIN 30.6 PG (27.0-34.0); MEAN CORPUSCULAR HGB CONC 33.9 % (32.0-36.0); PLATELET COUNT 362 TH/MM3 (150-450); RED BLOOD COUNT 3.09 MIL/MM3 (4.00-5.30); RED CELL DISTRIBUTION WIDTH 14.8 % (11.6-17.2); REVIEW FLAG FINAL; WHITE BLOOD COUNT 12.5 TH/MM3 (4.0-11.0)
[2017-01-06 07:03] LABS: BICARBONATE 20.6 MEQ/L (21.0-32.0); POTASSIUM 4.5 MEQ/L (3.5-5.1)
[2017-01-06] MEDS: SODIUM CHLORIDE 0.9% FLUSH 10 ML FLUSH IV FLUSH SCH ×2 (09:00→21:00)
[2017-01-06] MEDS: DOCUSATE SODIUM 50 MG/SENNA 8.6 MG TAB PO SCH ×2 (09:00→19:38)
[2017-01-06] MEDS: POTASSIUM CHLORIDE INJ 30 MEQ in SODIUM CHLOR 0.9% 1000 ML INJ 1,000 ML IV SCH ×3 (09:22→21:37)
--- NOTE | 2017-01-06 14:35 | HHI.IDPN ---
Subjective Subjective Remarks BP is low still non productive cough Antibiotics azithro ertapenam Allergies: Coded Allergies: No Known Allergies (Verified , 05/29/14) Objective . Vital Signs Date Time Temp Pulse Resp B/P (MAP) Pulse Ox O2 Delivery O2 Flow Rate FiO2 01/06/17 12:00 98.8 64 32 85/54 (64) 95 01/06/17 12:00 64 01/06/17 10:00 77 01/06/17 09:29 96 01/06/17 08:00 67 01/06/17 08:00 98.5 67 31 110/65 (80) 95 01/06/17 06:21 68 107/68 01/06/17 06:00 74 01/06/17 04:00 98.9 76 33 97/60 (72) 99 01/06/17 04:00 76 01/06/17 02:00 74 01/06/17 00:00 70 01/06/17 00:00 99.1 70 32 101/61 (74) 96 01/05/17 22:00 82 01/05/17 20:33 79 96/53 01/05/17 20:08 97 01/05/17 20:00 79 01/05/17 20:00 99.0 79 30 109/67 (81) 97 01/05/17 19:47 99.0 74 24 105/65 98 01/05/17 18:42 99.0 73 24 89/59 98 01/05/17 17:00 99.3 74 31 101/61 (74) 01/05/17 17:00 74 01/05/17 16:00 70 01/05/17 16:00 99.0 70 31 101/61 (74) 01/05/17 15:00 70 . Laboratory Tests Test 01/05/17 05:50 01/06/17 06:15 White Blood Count 14.0 TH/MM3 12.5 TH/MM3 Red Blood Count 2.52 MIL/MM3 3.09 MIL/MM3 Hemoglobin 7.6 GM/DL 9.5 GM/DL Hematocrit 23.2 % 27.9 % Mean Corpuscular Volume 92.2 FL 90.5 FL Mean Corpuscular Hemoglobin 30.4 PG 30.6 PG Mean Corpuscular Hemoglobin Concent 32.9 % 33.9 % Red Cell Distribution Width 14.5 % 14.8 % Platelet Count 362 TH/MM3 362 TH/MM3 Mean Platelet Volume 7.9 FL 8.3 FL Laboratory Tests Test 01/04/17 22:25 01/05/17 05:50 01/06/17 06:15 Potassium Level 3.4 MEQ/L 4.3 MEQ/L 4.5 MEQ/L Phosphorus Level 2.3 MG/DL 3.7 MG/DL Blood Urea Nitrogen 7 MG/DL 7 MG/DL Creatinine 0.82 MG/DL 0.77 MG/DL Random Glucose 88 MG/DL 111 MG/DL Calcium Level 7.9 MG/DL 8.1 MG/DL Magnesium Level 1.5 MG/DL Sodium Level 141 MEQ/L 137 MEQ/L Chloride Level 112 MEQ/L 108 MEQ/L Carbon Dioxide Level 20.7 MEQ/L 20.6 MEQ/L Anion Gap 8 MEQ/L 8 MEQ/L Estimat Glomerular Filtration Rate 69 ML/MIN 74 ML/MIN Iron Level 13 MCG/DL Ferritin 579 NG/ML Microbiology Date/Time Source Procedure Growth Status 01/04/17 16:50 Nasal Washing Influenza Types A,B Antigen ([facility]) - Final NEGATIVE FOR FLU A AND B ANTIGEN.... Complete Imaging Last Impressions Chest X-Ray 01/02/17 0000 Signed Impressions: Service Date/Time: Monday, January 02, 2017 16:43 - CONCLUSION: Worsening airspace process right lung. Kane Evans MD Physical Exam GCONSTITUTIONAL/GENERAL: This is an thion elderly femeale patient, in no apparent distress. TUBES/LINES/DRAINS: SKIN: No jaundice, rashes, or lesions. Skin temperature appropriate. Not diaphoretic. CARDIOVASCULAR: Regular rate and rhythm without murmurs, gallops, or rubs. No JVD. Peripheral pulses symmetric. RESPIRATORY/CHEST: Symmetric, unlabored respirations. Clear to auscultation. Breath sounds equal bilaterally. No wheezes, rales, or rhonchi. GASTROINTESTINAL: Abdomen soft, non-tender, nondistended. No hepato-splenomegaly , or palpable masses. No guarding. Bowel sounds present. MUSCULOSKELETAL: Extremities without clubbing, cyanosis, or edema. No joint tenderness or effusion noted. No calf tenderness. No mottling or clubbing. LYMPHATICS: No palpable cervical or supraclavicular adenopathy. NEUROLOGICAL: Awake and alert. Motor and sensory grossly within normal limits. Follows commands. Clear speech. Moves all extremities. PSYCHIATRIC: No obvious anxiety/depression. no apparent hallucinations or other psychotic thought process. Assessment & Plan Remarks RLL PNA ? ethiology: pr is unable to expectorate UTI ESBL + Kleb pneumo REC's: cont Ertapenem cont azithromycin Esme Bower MD Jan 06, 2017 14:35
--- NOTE | 2017-01-06 15:50 | HHI.PR ---
Subjective Remarks persistent profuse diarrhea- watery brown stools ate pretty good for lunch no abdominal apin Objective Vitals Vital Signs Date Time Temp Pulse Resp B/P (MAP) Pulse Ox O2 Delivery O2 Flow Rate FiO2 01/06/17 12:00 98.8 64 32 85/54 (64) 95 01/06/17 12:00 64 01/06/17 10:00 77 01/06/17 09:29 96 01/06/17 08:00 67 01/06/17 08:00 98.5 67 31 110/65 (80) 95 01/06/17 06:21 68 107/68 01/06/17 06:00 74 01/06/17 04:00 98.9 76 33 97/60 (72) 99 01/06/17 04:00 76 01/06/17 02:00 74 01/06/17 00:00 70 01/06/17 00:00 99.1 70 32 101/61 (74) 96 01/05/17 22:00 82 01/05/17 20:33 79 96/53 01/05/17 20:08 97 01/05/17 20:00 79 01/05/17 20:00 99.0 79 30 109/67 (81) 97 01/05/17 19:47 99.0 74 24 105/65 98 01/05/17 18:42 99.0 73 24 89/59 98 01/05/17 17:00 99.3 74 31 101/61 (74) 01/05/17 17:00 74 01/05/17 16:00 70 01/05/17 16:00 99.0 70 31 101/61 (74) I/O 01/05/17 01/05/17 01/05/17 01/06/17 01/06/17 01/06/17 06:59 14:59 22:59 06:59 14:59 22:59 Intake Total 1630 ml 100 ml 2310 ml 1534 ml 100 ml Output Total 1000 ml Balance 1630 ml 100 ml 1310 ml 1534 ml 100 ml Intake Oral 380 ml 600 ml IV Total 1250 ml 100 ml 1350 ml 1534 ml 100 ml Packed Cells 250 ml Blood Product IV Normal Saline Flush 110 ml Output Urine Total 1000 ml # Voids 3 5 4 # Bowel Movements 3 5 4 Result Diagram: 01/06/17 0615 01/06/17 0615 Imaging Last Impressions Chest X-Ray 01/02/17 0000 Signed Impressions: Service Date/Time: Monday, January 02, 2017 16:43 - CONCLUSION: Worsening airspace process right lung. Kane Evans MD Objective Remarks awake and alert fesity and more interactive and feisty oriented x 3 anicteric right IJ line in place no nuchal rigidity lungs- no rales or wheezes regular rhythm abdomen soft, nontender, good bowel sounds extremities no edema moves all extremities spontaneously no neuro deficits Date of Insertion: Jan 02, 2017 Date of Removal: Jan 04, 2017 A/P Assessment and Plan Severe sepsis- still on Levophed secondary to UTI- per patient history of recurrent UTI in the past now with ESBL secondary to Pneumonia- + infiltrates, + cough - continue IVF 125 cc/hr - restart Levophed if needed - on IV antiboitcs- on Ertapenem/Zosyn/Zithromax - ff sputum cultures Dr. Bower ff Persistent Diarrhea-- Diff negative replace volume - increase IVF rate -stoos sent- - c diff negative i-if persistent - will get a GI consult for possible colonoscopy Hypokalemia- - improved - electrolyte protocol per ICU HYpophosphatemia- imrpoved - replaced. and ff Acute Anemia- - some dilutional component- getting aggressive hydration - get GI consult - S/P 1 unit RBC- - H and H improved to 9 Respiratory: Obtain O2 sat greater than 92%. 02 1-4 L/m Wean as tolerated Bronchodilators every 6 hours scheduled, every 2 hours when necessary Incentive spirometry Cardiovascular: Maintain MAP greater than 65 mmHg Wean norepinephrine as tolerated Renal: I- oliveira out 01/04- patient voiding Endocrine: Glucose monitoring per ICU protocol -- SSI Prophylaxis: GI Prophylaxis Protonix DVT Prophylaxis -- SCDs Heparin twice a day Patient MS improving still requiring Levophed, ongoing loose stools but more formed Kanwal Dunn MD Jan 06, 2017 15:50
[2017-01-06] MEDS: AZITHROMYCIN INJ 500 MG in SODIUM CHLOR 0.9% 250 ML INJ 250 ML IV SCH (21:38)
[2017-01-06] MEDS: ERTAPENEM INJ 1,000 MG in SODIUM CHLORIDE 0.9% INJ 100 ML IV SCH (21:39)
[2017-01-07] VITALS (32 sets, daily range): BP systolic 75–107; BP diastolic 49–62; PULSE 62–77; RESP 23–35; TEMP 97.4–100; O2SAT 91–99
[2017-01-07] MEDS: POTASSIUM CHLORIDE INJ 30 MEQ in SODIUM CHLOR 0.9% 1000 ML INJ 1,000 ML IV SCH ×3 (04:07→23:11)
[2017-01-07] MEDS: HEPARIN SODIUM - SQ 10,000 UNITS/ML VIAL SQ SCH ×2 (04:07→17:17)
[2017-01-07] MEDS: PIPERACIL-TAZO 4.5 GM PREMIX 100 ML IV SCH ×4 (04:07→23:11)
[2017-01-07] MEDS: INSULIN ASPART SUPPLEMENTAL SCALE SQ SCH ×4 (05:20→20:26)
[2017-01-07 06:02] LABS: HEMATOCRIT 30.4 % (35.0-46.0); MEAN CELL VOLUME 90.7 FL (80.0-100.0); MEAN CORPUSCULAR HEMOGLOBIN 30.3 PG (27.0-34.0); MEAN CORPUSCULAR HGB CONC 33.4 % (32.0-36.0); PLATELET COUNT 453 TH/MM3 (150-450); RED BLOOD COUNT 3.35 MIL/MM3 (4.00-5.30); RED CELL DISTRIBUTION WIDTH 15.3 % (11.6-17.2); REVIEW FLAG FINAL; WHITE BLOOD COUNT 13.6 TH/MM3 (4.0-11.0)
[2017-01-07 06:28] LABS: BICARBONATE 23.3 MEQ/L (21.0-32.0); POTASSIUM 4.8 MEQ/L (3.5-5.1)
[2017-01-07] MEDS: DOCUSATE SODIUM 50 MG/SENNA 8.6 MG TAB PO SCH ×2 (09:00→20:28)
[2017-01-07] MEDS: SODIUM CHLORIDE 0.9% FLUSH 10 ML FLUSH IV FLUSH SCH ×2 (09:55→20:28)
--- NOTE | 2017-01-07 12:20 | HHI.PR ---
Subjective Remarks patient is awake and alert, no abdominal pain complains feels cold but no fever no nausea or vomiting still with peristent diarrhea paitent has been off Levophed since 01/06- 1799 on aggressive IVF- 150 cc/hr Objective Vitals Vital Signs Date Time Temp Pulse Resp B/P (MAP) Pulse Ox O2 Delivery O2 Flow Rate FiO2 01/07/17 06:00 72 01/07/17 04:00 98.6 71 25 101/55 (70) 95 01/07/17 04:00 71 01/07/17 02:00 70 01/07/17 00:00 74 01/07/17 00:00 98.3 74 26 93/53 (66) 01/06/17 22:00 78 01/06/17 20:30 21 01/06/17 20:00 98.6 81 33 108/61 (77) 98 01/06/17 20:00 81 01/06/17 18:00 80 01/06/17 16:00 98.9 69 26 107/66 (80) 79 01/06/17 16:00 69 I/O 01/06/17 01/06/17 01/06/17 01/07/17 01/07/17 01/07/17 07:00 15:00 23:00 07:00 15:00 23:00 Intake Total 1634 ml 1848 ml 2600 ml Output Total 350 ml 1500 ml Balance 1634 ml 1498 ml 1100 ml Intake Oral 150 ml 400 ml IV Total 1634 ml 1698 ml 2200 ml Output Urine Total 350 ml 1500 ml # Voids 4 6 # Bowel Movements 4 6 1 Result Diagram: 01/07/17 0540 01/07/17 0540 Imaging Last Impressions Chest X-Ray 01/02/17 0000 Signed Impressions: Service Date/Time: Monday, January 02, 2017 16:43 - CONCLUSION: Worsening airspace process right lung. KAdalberto Evans MD Objective Remarks awake and alert and interactive , oriented x 3 anicteric right IJ line in place no nuchal rigidity lungs- no rales or wheezes regular rhythm abdomen soft, nontender, good bowel sounds, no guarding or rigidity extremities no edema moves all extremities spontaneously no neuro deficits Date of Insertion: Jan 02, 2017 Date of Removal: Jan 04, 2017 A/P Assessment and Plan 72 years old female Severe sepsis- off Levophed last 18 hours- MS changed resolved secondary to UTI- per patient history of recurrent UTI in the past now with ESBL secondary to Pneumonia- + infiltrates, + cough - continue IVF 150 cc/hr - on IV antiboitcs- on Ertapenem/Zosyn/Zithromax - ff sputum cultures Dr. Bower ff Persistent Diarrhea-- C Diff negative replace volume - 150 cc/hr GI consulted- evaluate for colonoscopy get CT of the abdomen and pelvis Hypokalemia- - improved - electrolyte protocol per ICU HYpophosphatemia- imrpoved - replaced. and ff Acute Anemia- - some dilutional component- getting aggressive hydration - get GI consult - S/P 1 unit RBC- helped with BP Respiratory: Obtain O2 sat greater than 92%. 02 1-4 L/m Wean as tolerated Bronchodilators every 6 hours scheduled, every 2 hours when necessary Incentive spirometry Cardiovascular: Maintain MAP greater than 65 mmHg Wean norepinephrine as tolerated Renal: I- oliveira out 01/04- patient voiding Endocrine: Glucose monitoring per ICU protocol -- SSI Prophylaxis: GI Prophylaxis Protonix DVT Prophylaxis -- SCDs Heparin twice a day ADD: BPs dropping - diarrhea volume decreased -IVF at 150 cc/hr earlier -give 500 cc bolus -start levophed Kanwal Weems MD Jan 07, 2017 12:20
--- NOTE | 2017-01-07 15:05 | HHI.IDPN ---
Subjective Subjective Remarks BP is low bur is off pressors now still non productive cough + low grade fever up to 100.0 no new co Blood clx + 1.4 gram + rupali Antibiotics azithro ertapenam Allergies: Coded Allergies: No Known Allergies (Verified , 05/29/14) Objective . Vital Signs Date Time Temp Pulse Resp B/P (MAP) Pulse Ox O2 Delivery O2 Flow Rate FiO2 01/07/17 14:00 70 01/07/17 13:30 72 01/07/17 13:00 72 01/07/17 12:00 100.0 67 24 97/61 (73) 01/07/17 12:00 67 01/07/17 11:30 69 23 104/58 (73) 01/07/17 11:00 70 01/07/17 11:00 70 28 85/59 (68) 01/07/17 10:30 73 28 91/57 (68) 01/07/17 10:00 76 01/07/17 10:00 76 30 98/59 (72) 01/07/17 09:30 77 32 91/62 (72) 01/07/17 09:00 71 27 92/53 (66) 01/07/17 09:00 71 01/07/17 08:30 70 31 90/55 (67) 01/07/17 08:00 65 01/07/17 08:00 97.4 65 24 98/60 (73) 01/07/17 06:00 72 01/07/17 04:00 98.6 71 25 101/55 (70) 95 01/07/17 04:00 71 01/07/17 02:00 70 01/07/17 00:00 74 01/07/17 00:00 98.3 74 26 93/53 (66) 01/06/17 22:00 78 01/06/17 20:30 21 01/06/17 20:00 98.6 81 33 108/61 (77) 98 01/06/17 20:00 81 01/06/17 18:00 80 01/06/17 16:00 98.9 69 26 107/66 (80) 79 01/06/17 16:00 69 01/07/17 01/07/17 01/08/17 15:00 23:00 07:00 Intake Total 1100 ml Balance 1100 ml IV Total 1100 ml . Laboratory Tests Test 01/06/17 06:15 01/07/17 05:40 White Blood Count 12.5 TH/MM3 13.6 TH/MM3 Red Blood Count 3.09 MIL/MM3 3.35 MIL/MM3 Hemoglobin 9.5 GM/DL 10.2 GM/DL Hematocrit 27.9 % 30.4 % Mean Corpuscular Volume 90.5 FL 90.7 FL Mean Corpuscular Hemoglobin 30.6 PG 30.3 PG Mean Corpuscular Hemoglobin Concent 33.9 % 33.4 % Red Cell Distribution Width 14.8 % 15.3 % Platelet Count 362 TH/MM3 453 TH/MM3 Mean Platelet Volume 8.3 FL 8.1 FL Laboratory Tests Test 01/06/17 06:15 01/07/17 05:40 Blood Urea Nitrogen 7 MG/DL 8 MG/DL Creatinine 0.77 MG/DL 0.87 MG/DL Random Glucose 111 MG/DL 86 MG/DL Calcium Level 8.1 MG/DL 8.5 MG/DL Sodium Level 137 MEQ/L 137 MEQ/L Potassium Level 4.5 MEQ/L 4.8 MEQ/L Chloride Level 108 MEQ/L 106 MEQ/L Carbon Dioxide Level 20.6 MEQ/L 23.3 MEQ/L Anion Gap 8 MEQ/L 8 MEQ/L Estimat Glomerular Filtration Rate 74 ML/MIN 64 ML/MIN Microbiology Date/Time Source Procedure Growth Status 01/04/17 16:50 Nasal Washing Influenza Types A,B Antigen (CHRIS) - Final NEGATIVE FOR FLU A AND B ANTIGEN.... Complete Imaging Last Impressions Chest X-Ray 01/02/17 0000 Signed Impressions: Service Date/Time: Monday, January 02, 2017 16:43 - CONCLUSION: Worsening airspace process right lung. K. Ajith Evans MD Physical Exam GCONSTITUTIONAL/GENERAL: This is an thin elderly femeale patient, in no apparent distress. TUBES/LINES/DRAINS: SKIN: No jaundice, rashes, or lesions. Skin temperature appropriate. Not diaphoretic. CARDIOVASCULAR: Regular rate and rhythm without murmurs, gallops, or rubs. No JVD. Peripheral pulses symmetric. RESPIRATORY/CHEST: Symmetric, unlabored respirations. Clear to auscultation. Breath sounds equal bilaterally. No wheezes, rales, or rhonchi. GASTROINTESTINAL: Abdomen soft, non-tender, nondistended. No hepato-splenomegaly , or palpable masses. No guarding. Bowel sounds present. MUSCULOSKELETAL: Extremities without clubbing, cyanosis, or edema. No joint tenderness or effusion noted. No calf tenderness. No mottling or clubbing. LYMPHATICS: No palpable cervical or supraclavicular adenopathy. NEUROLOGICAL: Awake and alert. Motor and sensory grossly within normal limits. Follows commands. Clear speech. Moves all extremities. PSYCHIATRIC: No obvious anxiety/depression. no apparent hallucinations or other psychotic thought process. Assessment & Plan Remarks RLL PNA ? ethiology: pr is unable to expectorate UTI ESBL + Kleb pneumo Gram positive rupali, pleomorphic, 05/19 : likely cw contaminant New fever abx associated diarrhea - c.diff negative REC's: cont Ertapenem cont azithromycin rechk blood clx - UA, C+S Esme Bower MD Jan 07, 2017 15:05
[2017-01-07] MEDS ORDERED: SODIUM CHLORID 0.9% 500 ML INJ 500 ML IV SCH (15:15)
[2017-01-07] MEDS ORDERED: EPINEPHrine (1:1000) INJ 2 MG in DEXTROSE 5% IN WATER INJ 250 ML IV PRN ×2 (15:30)
[2017-01-07] MEDS: NOREPINEPHRINE-DEXTROSE DRIP 250 ML IV PRN (16:34)
--- NOTE | 2017-01-07 17:34 | PD.CONS ---
HPI History of Present Illness This is a 72 year old female who is currently in the ICU being treated for severe sepsis. ID is following for right lower lobe pneumonia and UTI with ESBL , (+) Klebsiella pneumoniae and she is getting Invanz and azithromycin. GI has been consulted for chronic diarrhea and evaluation with possible colonoscopy. The patient tells me that she has had chronic diarrhea for many years. She states she usually has this daily, although once in awhile she will have a day without any bowel movements. She typically has 3-4 loose stools per day without any blood or mucous. She denies any associated fevers, chills, nausea, vomiting, blood in stool, or mucous in her stools. She does report a weight loss of 20 lbs over the past year. She reports that she does have a history of colitis, but cannot tell me what kind. She does not know if she has any history of inflammatory bowel disease and does not know the medications that she has been treated with in the past for colitis. She cannot identify any aggravating or alleviating factors for her diarrhea. She states that she has a history of rheumatoid arthritis, but does not know if she is on meds for this. She reports that her last colonoscopy was several years ago, she does not know if it was greater than 5 years ago and does not know the findings. She does report that she does not want a colonoscopy. (Ana Hernandez) PFSH Past Medical History Dyslipidemia IBS DJD Spinal stenosis Tobaccoism Osteoarthritis Past Surgical History Left spine laminectomy, fusion Cholecystectomy Hysterectomy Colonoscopy (Ana Hernandez) Coded Allergies: No Known Allergies (Verified , 05/29/14) Medications Allergies Coded Allergies Type Severity Reaction Last Updated Verified No Known Allergies 05/29/14 Yes Active Scripts Medications Dose Route/Sig Max Daily Dose Days Date Category Percocet (Oxycodone/Acetaminophen) 5 Mg/325 Mg Tab 1 Tab PO Q6 PRN 04/17/13 Rx Budesonide 3 Mg/24 Hr Cap 3 Mg PO DAILY 30 04/17/13 Rx Nortriptyline Hcl (Nortriptyline HCl) 25 Mg Cap 25 Mg PO HS 30 04/17/13 Rx Tricor (Fenofibrate) 145 Mg Tab 145 Mg PO DAILY 30 04/17/13 Rx Drisdol (Ergocalciferol) 50,000 Unt Cap 1 PO WEEKLY 04/10/13 Reported Family History Maternal uncle had colon cancer. Social History Smokes 1/2 PPD, smoked 1ppd for many years Occasional ETOH use No illicit drug use (Ana Hernandez) Review of Systems Constitutional: COMPLAINS OF: Fatigue, Weight loss, DENIES: Fever, Chills Respiratory: COMPLAINS OF: Cough, DENIES: Shortness of breath Cardiovascular: DENIES: Chest pain Gastrointestinal: COMPLAINS OF: Diarrhea, DENIES: Abdominal pain, Black stools , Bloody stools, Constipation, Nausea, Vomiting, Anorexia, Swelling of Abdomen, Heartburn, Hematemesis Musculoskeletal: COMPLAINS OF: Joint pain Integumentary: DENIES: Rash Neurologic: DENIES: Headache Psychiatric: DENIES: Confusion (Ana Hernandez) GI Exam Vitals I&O Vital Signs Date Time Temp Pulse Resp B/P (MAP) Pulse Ox O2 Delivery O2 Flow Rate FiO2 01/07/17 16:34 71 78/49 01/07/17 14:00 70 01/07/17 13:30 72 01/07/17 13:00 72 01/07/17 12:00 100.0 67 24 97/61 (73) 01/07/17 12:00 67 01/07/17 11:30 69 23 104/58 (73) 01/07/17 11:00 70 01/07/17 11:00 70 28 85/59 (68) 01/07/17 10:30 73 28 91/57 (68) 01/07/17 10:00 76 01/07/17 10:00 76 30 98/59 (72) 01/07/17 09:30 77 32 91/62 (72) 01/07/17 09:00 71 27 92/53 (66) 01/07/17 09:00 71 01/07/17 08:30 70 31 90/55 (67) 01/07/17 08:00 65 01/07/17 08:00 97.4 65 24 98/60 (73) 01/07/17 06:00 72 01/07/17 04:00 98.6 71 25 101/55 (70) 95 01/07/17 04:00 71 01/07/17 02:00 70 01/07/17 00:00 74 01/07/17 00:00 98.3 74 26 93/53 (66) 01/06/17 22:00 78 01/06/17 20:30 21 01/06/17 20:00 98.6 81 33 108/61 (77) 98 01/06/17 20:00 81 01/06/17 18:00 80 I/O 01/06/17 01/06/17 01/06/17 01/07/17 01/07/17 01/07/17 07:00 15:00 23:00 07:00 15:00 23:00 Intake Total 1634 ml 1848 ml 2600 ml 1100 ml 500 ml Output Total 350 ml 1500 ml Balance 1634 ml 1498 ml 1100 ml 1100 ml 500 ml Intake Oral 150 ml 400 ml IV Total 1634 ml 1698 ml 2200 ml 1100 ml 500 ml Output Urine Total 350 ml 1500 ml # Voids 4 6 # Bowel Movements 4 6 1 Imaging Last Impressions Chest X-Ray 01/02/17 0000 Signed Impressions: Service Date/Time: Monday, January 02, 2017 16:43 - CONCLUSION: Worsening airspace process right lung. KAdalberto Evans MD Laboratory Test 01/07/17 05:40 White Blood Count 13.6 TH/MM3 Red Blood Count 3.35 MIL/MM3 Hemoglobin 10.2 GM/DL Hematocrit 30.4 % Mean Corpuscular Volume 90.7 FL Mean Corpuscular Hemoglobin 30.3 PG Mean Corpuscular Hemoglobin Concent 33.4 % Red Cell Distribution Width 15.3 % Platelet Count 453 TH/MM3 Mean Platelet Volume 8.1 FL Blood Urea Nitrogen 8 MG/DL Creatinine 0.87 MG/DL Random Glucose 86 MG/DL Calcium Level 8.5 MG/DL Sodium Level 137 MEQ/L Potassium Level 4.8 MEQ/L Chloride Level 106 MEQ/L Carbon Dioxide Level 23.3 MEQ/L Anion Gap 8 MEQ/L Estimat Glomerular Filtration Rate 64 ML/MIN Date/Time Source Procedure Growth Status 01/07/17 15:53 Blood Peripheral Aerobic Blood Culture Pending Received 01/07/17 15:53 Blood Peripheral Anaerobic Blood Culture Pending Received 01/04/17 16:50 Nasal Washing Influenza Types A,B Antigen (CHRIS) - Final NEGATIVE FOR FLU A AND B ANTIGEN.... Complete 01/02/17 14:00 Urine Catheterized Urine Legionella Antigen - Final PRESUMPTIVE NEGATIVE FOR LEGIONELLA P... Complete 01/02/17 14:00 Urine Catheterized Urine Streptococcus pneumoniae Antigen (M - Final PRESUMPTIVE NEGATIVE FOR STREPTOCOCCU... Complete Physical Examination HEENT: Normocephalic; atraumatic; no jaundice. CHEST: Resp. even/unlabored, diminished bases CARDIAC: RRR ABDOMEN: Soft, nondistended, nontender; no hepatosplenomegaly; bowel sounds are present in all four quadrants. EXTREMITIES: No clubbing, cyanosis, or edema. SKIN: Normal; no rash; no jaundice. LOCK PLATER: No focal deficits; alert and oriented times three. (Ana Hernandez) Assessment and Plan Plan ASSESSMENT: - Chronic diarrhea. Pt reports long history of chronic diarrhea, usually 3-4 bowel movements per day. Does report a history of RA and a hx of colitis in the past, but does not know if this was infectious vs. inflammatory vs. nonspecific. CDifficile PCR negative. Last colonoscopy was several years ago- does not know when or the findings. Fhx of colon cancer in maternal uncle. CT scan abdomen and pelvis ordered. D/W patient possible need for colonoscopy, but she is not very receptive to this. Will get CT scan/stool studies and then maybe revisit if indicated. - Sepsis, RLL pneumonia and UTI with ESBL, (+) Klebsiella pneumoniae and she is getting Invanz and azithromycin. - Leukocytosis. Abx as above. WBC 13.6. - Anemia. 10.2/30.4. PLAN: - TAMMIE - CT Scan abdomen/pelvis - Stool for C/S, Giardia, O&P - Abx per ID - Monitor labs - Consider colonoscopy based on results of above and if patient agreeable - Pt seen and examined by Dr. Bob and myself and this note is written on his behalf (Ana Hernandez) Physician Comments Seen and examined, plan as above, refusing endoscopic evaluation for now, will follow up with you. (Lilliana Bob MD) Ana Hernandez Jan 07, 2017 17:33 Lilliana Bbo MD Jan 07, 2017 19:18
[2017-01-07] MEDS: ERTAPENEM INJ 1,000 MG in SODIUM CHLORIDE 0.9% INJ 100 ML IV SCH (20:28)
[2017-01-07] MEDS: AZITHROMYCIN INJ 500 MG in SODIUM CHLOR 0.9% 250 ML INJ 250 ML IV SCH (20:29)
[2017-01-07] MEDS: CHLORHEXIDINE GLUCONATE 2 % 1 PACK (2 CLOTHS) TOP SCH (23:11)
[2017-01-08] VITALS (16 sets, daily range): BP systolic 88–108; BP diastolic 52–67; PULSE 59–68; RESP 22–30; TEMP 98–98.3; O2SAT 92–97
--- NOTE | 2017-01-08 02:13 | RADRPT ---
EXAM DATE/TIME: 01/08/2017 01:46 [facility] COMPARISON: CT ABDOMEN & PELVIS W/O CONTRAST, November 23, 2009, 10:30. INDICATIONS : Spesis with diarrhea. ORAL CONTRAST: No oral contrast ingested. RADIATION DOSE: 5.10 CTDIvol (mGy) MEDICAL HISTORY : Cardiovascular disease. Pancreatitis. SURGICAL HISTORY : Cholecystectomy. Appendectomy.Fusion, lumbar. ENCOUNTER: Initial ACUITY: 1 day PAIN SCALE: 0/10 LOCATION: abdomen TECHNIQUE: Volumetric scanning of the abdomen and pelvis was performed. Using automated exposure control and ad justment of the mA and/or kV according to patient size, radiation dose was kept as low as reasonably achievable to obtain optimal diagnostic quality images. DICOM format image data is available electro nically for review and comparison. FINDINGS: LOWER LUNGS: Bilateral pleural effusions right greater the left. Bibasilar passive atelectasis. LIVER: Homogeneous density without lesion. There is no dilation of the biliary tree. Cholecystectomy clips. SPLEEN: Normal size without lesion. PANCREAS: Within normal limits. KIDNEYS: Moderate hydronephrosis of the right kidney with a dilated ureter all the way into the pelvis. A 4 mm distal ureteral stone is noted just above the bladder. ADRENAL GLANDS: Within normal limits. VASCULAR: There is no aortic aneurysm. BOWEL/MESENTERY: The stomach, small bowel, and colon demonstrate no acute abnormality. There is no free intraperitone al air or fluid. ABDOMINAL WALL: Within normal limits. RETROPERITONEUM: There is no lymphadenopathy. BLADDER: No wall thickening or mass. REPRODUCTIVE: Within normal limits. INGUINAL: There is no lymphadenopathy or hernia. MUSCULOSKELETAL: Right-sided lower lumbar fusion. CONCLUSION: 4 mm distal right ureteral stone with moderate hydronephrosis and hydroureter. Small bilateral pleura l effusions with passive atelectasis right greater than left. iZa Beauchamp MD on January 08, 2017 at 2:04 Board Certified Radiologist. This report was verified electronically.
[2017-01-08] MEDS ORDERED: ZOLPIDEM TARTRATE 5 MG TAB PO ONE ×2 (02:45→23:45)
[2017-01-08] MEDS: PIPERACIL-TAZO 4.5 GM PREMIX 100 ML IV SCH ×4 (05:47→22:27)
[2017-01-08] MEDS: HEPARIN SODIUM - SQ 10,000 UNITS/ML VIAL SQ SCH ×2 (05:47→17:51)
[2017-01-08] MEDS: POTASSIUM CHLORIDE INJ 30 MEQ in SODIUM CHLOR 0.9% 1000 ML INJ 1,000 ML IV SCH ×3 (05:49→20:27)
[2017-01-08 05:57] LABS: HEMATOCRIT 30.2 % (35.0-46.0); MEAN CELL VOLUME 90.6 FL (80.0-100.0); MEAN CORPUSCULAR HEMOGLOBIN 30.1 PG (27.0-34.0); MEAN CORPUSCULAR HGB CONC 33.3 % (32.0-36.0); PLATELET COUNT 521 TH/MM3 (150-450); RED BLOOD COUNT 3.33 MIL/MM3 (4.00-5.30); RED CELL DISTRIBUTION WIDTH 14.8 % (11.6-17.2); REVIEW FLAG FINAL; WHITE BLOOD COUNT 15.1 TH/MM3 (4.0-11.0)
[2017-01-08] MEDS: NOREPINEPHRINE-DEXTROSE DRIP 250 ML IV PRN (06:17)
[2017-01-08] MEDS: INSULIN ASPART SUPPLEMENTAL SCALE SQ SCH ×4 (07:00→20:27)
[2017-01-08 07:22] LABS: BICARBONATE 21.2 MEQ/L (21.0-32.0); POTASSIUM 4.5 MEQ/L (3.5-5.1)
[2017-01-08] MEDS: DOCUSATE SODIUM 50 MG/SENNA 8.6 MG TAB PO SCH ×2 (09:00→20:27)
[2017-01-08] MEDS: SODIUM CHLORIDE 0.9% FLUSH 10 ML FLUSH IV FLUSH SCH ×2 (10:44→20:27)
--- NOTE | 2017-01-08 15:00 | HHI.PR ---
Subjective Remarks patiet states still having diarrhea no abdominal pain, ate pretty well for breakfast no pain complains Objective Vitals Vital Signs Date Time Temp Pulse Resp B/P (MAP) Pulse Ox O2 Delivery O2 Flow Rate FiO2 01/08/17 07:04 92 21 01/08/17 06:17 62 110/60 01/08/17 06:00 66 01/08/17 04:00 98.2 65 30 108/56 (73) 95 01/08/17 04:00 65 01/08/17 02:00 63 01/08/17 00:00 98.3 63 23 104/64 (77) 94 01/08/17 00:00 63 01/07/17 22:00 62 01/07/17 20:00 98.1 66 28 107/61 (76) 97 01/07/17 20:00 66 01/07/17 18:00 67 01/07/17 17:46 69 29 104/57 (73) 96 01/07/17 17:30 69 30 91/52 (65) 97 01/07/17 17:16 67 28 88/51 (63) 97 01/07/17 17:00 67 28 94/54 (67) 97 01/07/17 17:00 67 01/07/17 16:45 67 24 96/52 (67) 97 01/07/17 16:34 71 78/49 01/07/17 16:30 67 24 92/55 (67) 97 01/07/17 16:16 69 28 90/52 (65) 98 01/07/17 16:00 71 01/07/17 16:00 98.9 71 26 78/49 (59) 99 01/07/17 15:30 75 26 83/51 (62) 99 01/07/17 15:04 75 33 80/51 (61) 95 01/07/17 15:00 73 35 81/50 (60) 95 01/07/17 15:00 73 I/O 01/07/17 01/07/17 01/07/17 01/08/17 01/08/17 01/08/17 07:00 15:00 23:00 07:00 15:00 23:00 Intake Total 2600 ml 1100 ml 2680 ml 2072 ml Output Total 1500 ml 1800 ml 2600 ml Balance 1100 ml 1100 ml 880 ml -528 ml Intake Oral 400 ml 480 ml 240 ml IV Total 2200 ml 1100 ml 2200 ml 1832 ml Output Urine Total 1500 ml 1800 ml 2600 ml # Bowel Movements 1 1 0 Result Diagram: 01/08/1730 01/08/1730 Imaging Last Impressions Abdomen/Pelvis CT 01/08/17 0000 Signed Impressions: Service Date/Time: Sunday, January 08, 2017 01:46 - CONCLUSION: 4 mm distal right ureteral stone with moderate hydronephrosis and hydroureter. Small bilateral pleural effusions with passive atelectasis right greater than left. Zia Beauchamp MD Chest X-Ray 01/02/17 0000 Signed Impressions: Service Date/Time: Monday, January 02, 2017 16:43 - CONCLUSION: Worsening airspace process right lung. Kane Evans MD Objective Remarks awake and alert and interactive , oriented x 3 anicteric right IJ line in place no nuchal rigidity lungs- no rales or wheezes regular rhythm abdomen soft, nontender, good bowel sounds, no guarding or rigidity extremities no edema moves all extremities spontaneously no neuro deficits Date of Insertion: Jan 02, 2017 Date of Removal: Jan 04, 2017 A/P Assessment and Plan 72 years old female Severe sepsis- restarted on Levophed drip 4 mcg secondary to UTI- - history of recurrent UTI in the past now with ESBL- good urine output secondary to Pneumonia- + infiltrates, + cough - continue IVF 150 cc/hr - on IV antiboitcs- on Ertapenem/Zosyn/Zithromax - ff sputum cultures - ID Dr. Bower ff - CT shows right moderated hydronephrosis- will get Urology consult -repeat UA Persistent Diarrhea-- C Diff negative- on history per patient chronic- history of pancreatitis in the past replace volume - 150 cc/hr - see by GI- plan for scope next week -will try patient on Creon tid Acute Anemia- - some dilutional component- getting aggressive hydration - get GI consult- as above - S/P 1 unit RBC- helped with BP Hypokalemia- - improved - electrolyte protocol per ICU HYpophosphatemia- imrpoved - replaced. and ff Respiratory: Obtain O2 sat greater than 92%. 02 1-4 L/m Wean as tolerated Bronchodilators every 6 hours scheduled, every 2 hours when necessary Incentive spirometry Cardiovascular: Maintain MAP greater than 65 mmHg Wean norepinephrine as tolerated Renal: I- oliveira out 01/04- patient voiding Endocrine: Glucose monitoring per ICU protocol -- SSI Prophylaxis: GI Prophylaxis Protonix DVT Prophylaxis -- SCDs Heparin twice a day ADD: BPs dropping - diarrhea volume decreased -IVF at 150 cc/hr earlier -give 500 cc bolus -start levophed drip Kanwal Dunn MD Jan 08, 2017 15:00
[2017-01-08] MEDS: ERTAPENEM INJ 1,000 MG in SODIUM CHLORIDE 0.9% INJ 100 ML IV SCH (17:50)
[2017-01-08] MEDS: LIPASE/PROTEASE/AMYLASE (24,000/76,000/120,000) CAP PO SCH (18:02)
[2017-01-08 19:44] LABS: BLOOD, URINE NEG (NEG); COMMENT (UR) CATH-CULT NOT IND; CULTURE IF INDICATED CATH CULTURE NOT IND; GLUCOSE,URINE NEG (NEG); KETONE, URINE NEG (NEG); NITRITE,URINE NEG (NEG); PH, URINE 6.5 (5.0-8.5); URINE COLOR COLORLESS (YELLW/STRAW)
[2017-01-08] MEDS: AZITHROMYCIN INJ 500 MG in SODIUM CHLOR 0.9% 250 ML INJ 250 ML IV SCH (20:27)
--- NOTE | 2017-01-08 20:50 | HHI.IDPN ---
Subjective Subjective Remarks still on low dose pressors CT showed 4 mm distal right ureteral stone with moderate hydronephrosis and hydroureter Pt completely denies back pain she endorses h/o kidney stones and stated she previously had kidney colic and she has nothing likel alexys t this time Urology consulted no fever no new co Blood clx + 1.4 gram + rupali Antibiotics azithro ertapenam Allergies: Coded Allergies: No Known Allergies (Verified , 05/29/14) Objective . Vital Signs Date Time Temp Pulse Resp B/P (MAP) Pulse Ox O2 Delivery O2 Flow Rate FiO2 01/08/17 18:45 66 28 98/55 (69) 96 01/08/17 18:30 63 27 96/58 (71) 97 01/08/17 16:00 59 25 105/67 (80) 97 01/08/17 16:00 65 01/08/17 14:00 65 01/08/17 12:00 65 01/08/17 12:00 63 23 88/56 (67) 97 01/08/17 10:00 65 01/08/17 08:15 68 22 89/53 (65) 95 01/08/17 08:00 65 01/08/17 07:45 98.0 67 23 90/52 (65) 94 01/08/17 07:04 92 21 01/08/17 06:17 62 110/60 01/08/17 06:00 66 01/08/17 04:00 98.2 65 30 108/56 (73) 95 01/08/17 04:00 65 01/08/17 02:00 63 01/08/17 00:00 98.3 63 23 104/64 (77) 94 01/08/17 00:00 63 01/07/17 22:00 62 01/08/17 01/08/17 01/09/17 15:00 23:00 07:00 Intake Total 2072 ml 360 ml Output Total 2600 ml 1800 ml Balance -528 ml -1440 ml Intake Oral 240 ml 360 ml IV Total 1832 ml Output Urine Total 2600 ml 1800 ml # Bowel Movements 0 2 . Laboratory Tests Test 01/07/17 05:40 01/08/17 05:30 White Blood Count 13.6 TH/MM3 15.1 TH/MM3 Red Blood Count 3.35 MIL/MM3 3.33 MIL/MM3 Hemoglobin 10.2 GM/DL 10.0 GM/DL Hematocrit 30.4 % 30.2 % Mean Corpuscular Volume 90.7 FL 90.6 FL Mean Corpuscular Hemoglobin 30.3 PG 30.1 PG Mean Corpuscular Hemoglobin Concent 33.4 % 33.3 % Red Cell Distribution Width 15.3 % 14.8 % Platelet Count 453 TH/MM3 521 TH/MM3 Mean Platelet Volume 8.1 FL 8.0 FL Laboratory Tests Test 01/07/17 05:40 01/08/17 05:30 Blood Urea Nitrogen 8 MG/DL 8 MG/DL Creatinine 0.87 MG/DL 0.83 MG/DL Random Glucose 86 MG/DL 100 MG/DL Calcium Level 8.5 MG/DL 7.6 MG/DL Sodium Level 137 MEQ/L 133 MEQ/L Potassium Level 4.8 MEQ/L 4.5 MEQ/L Chloride Level 106 MEQ/L 104 MEQ/L Carbon Dioxide Level 23.3 MEQ/L 21.2 MEQ/L Anion Gap 8 MEQ/L 8 MEQ/L Estimat Glomerular Filtration Rate 64 ML/MIN 68 ML/MIN Microbiology Date/Time Source Procedure Growth Status 01/08/17 03:18 Blood Peripheral Aerobic Blood Culture Pending Received 01/08/17 03:18 Blood Peripheral Anaerobic Blood Culture Pending Received 01/07/17 15:53 Blood Peripheral Aerobic Blood Culture - Preliminary NO GROWTH IN 1 DAY Resulted 01/07/17 15:53 Blood Peripheral Anaerobic Blood Culture - Final QNS - SEE AEROBE REPORT Resulted 01/07/17 16:00 Urine Catheterized Urine Urine Culture - Preliminary NO GROWTH IN 24 HOURS. Resulted Imaging Last Impressions Abdomen/Pelvis CT 01/08/17 0000 Signed Impressions: Service Date/Time: Sunday, January 08, 2017 01:46 - CONCLUSION: 4 mm distal right ureteral stone with moderate hydronephrosis and hydroureter. Small bilateral pleural effusions with passive atelectasis right greater than left. Zia Beauchamp MD Chest X-Ray 01/02/17 0000 Signed Impressions: Service Date/Time: Monday, January 02, 2017 16:43 - CONCLUSION: Worsening airspace process right lung. Kane Evans MD Physical Exam GCONSTITUTIONAL/GENERAL: This is a thin elderly femeale patient, in no apparent distress. TUBES/LINES/DRAINS: SKIN: No jaundice, rashes, or lesions. Skin temperature appropriate. Not diaphoretic. CARDIOVASCULAR: Regular rate and rhythm without murmurs, gallops, or rubs. No JVD. Peripheral pulses symmetric. RESPIRATORY/CHEST: Symmetric, unlabored respirations. Clear to auscultation. Breath sounds equal bilaterally. No wheezes, rales, or rhonchi. GASTROINTESTINAL: Abdomen soft, non-tender, nondistended. No hepato-splenomegaly , or palpable masses. No guarding. Bowel sounds present. MUSCULOSKELETAL: Extremities without clubbing, cyanosis, or edema. No joint tenderness or effusion noted. No calf tenderness. No mottling or clubbing. : cath in place with clear yellow urine; UOP ia good NEUROLOGICAL: Awake and alert. Motor and sensory grossly within normal limits. Follows commands. Clear speech. Moves all extremities. PSYCHIATRIC: No obvious anxiety/depression. no apparent hallucinations or other psychotic thought process. Assessment & Plan Remarks RLL PNA ? ethiology: pr is unable to expectorate UTI ESBL + Kleb pneumo Obtructive uropathive 2/2 distal R ureter stone Gram positive rupali, pleomorphic, 1/4 : likely cw contaminant New fever lielky 2/2 UTI in the settings of obstruction abx associated diarrhea - c.diff negative REC's: cont Ertapenem cont azithromycin agree with urology consult, awaiting rec's fu repeat blood clx - UA, C+S Esme Bower MD Jan 08, 2017 20:50
[2017-01-08] MEDS ORDERED: diphenhydrAMINE HCL 25 MG CAP PO ONE (21:45)
[2017-01-08] MEDS: CHLORHEXIDINE GLUCONATE 2 % 1 PACK (2 CLOTHS) TOP SCH (23:52)
[2017-01-09] VITALS (10 sets, daily range): BP systolic 91–112; BP diastolic 53–71; PULSE 57–70; RESP 22–29; TEMP 98–98.4; O2SAT 94–99
[2017-01-09] MEDS: PIPERACIL-TAZO 4.5 GM PREMIX 100 ML IV SCH ×3 (04:02→17:30)
[2017-01-09] MEDS: NOREPINEPHRINE-DEXTROSE DRIP 250 ML IV PRN (04:03)
[2017-01-09] MEDS: POTASSIUM CHLORIDE INJ 30 MEQ in SODIUM CHLOR 0.9% 1000 ML INJ 1,000 ML IV SCH ×4 (04:06→17:31)
[2017-01-09] MEDS: HEPARIN SODIUM - SQ 10,000 UNITS/ML VIAL SQ SCH ×2 (04:07→17:28)
[2017-01-09 05:35] LABS: HEMATOCRIT 30.1 % (35.0-46.0); MEAN CELL VOLUME 90.7 FL (80.0-100.0); MEAN CORPUSCULAR HEMOGLOBIN 30.4 PG (27.0-34.0); MEAN CORPUSCULAR HGB CONC 33.5 % (32.0-36.0); PLATELET COUNT 520 TH/MM3 (150-450); RED BLOOD COUNT 3.31 MIL/MM3 (4.00-5.30); RED CELL DISTRIBUTION WIDTH 14.7 % (11.6-17.2); REVIEW FLAG FINAL; WHITE BLOOD COUNT 13.5 TH/MM3 (4.0-11.0)
[2017-01-09 05:51] LABS: BICARBONATE 20.8 MEQ/L (21.0-32.0); POTASSIUM 4.3 MEQ/L (3.5-5.1)
[2017-01-09] MEDS: INSULIN ASPART SUPPLEMENTAL SCALE SQ SCH ×4 (06:39→21:09)
[2017-01-09] MEDS: DOCUSATE SODIUM 50 MG/SENNA 8.6 MG TAB PO SCH ×2 (09:00→21:04)
[2017-01-09] MEDS: LIPASE/PROTEASE/AMYLASE (24,000/76,000/120,000) CAP PO SCH ×3 (09:00→17:31)
--- NOTE | 2017-01-09 11:22 | PD.CONS ---
[facility] Service Urology Consult Requested By Reason for Consult Obstructing right ureteral calculus Primary Care Physician Hi Vidal MD Diagnosis: History of Present Illness 72-year-old female who was admitted right emergency room with generalized weakness. Patient was admitted for management of sepsis, pneumonia any UTI. During her present hospitalization a CT scan study was performed that demonstrated moderate right hydroureteronephrosis secondary to a 4 mm distal right ureteral calculus. A urology consult was placed regarding this finding. At the time of consultation the patient was resting comfortably in bed in no acute distress. She denied any significant flank pain. She denies a history of prior renal calculus. She denied gross hematuria. Review of Systems Constitutional: COMPLAINS OF: Fever (low-grade) Respiratory: COMPLAINS OF: Cough Cardiovascular: DENIES: Chest pain Gastrointestinal: COMPLAINS OF: Diarrhea, DENIES: Abdominal pain Genitourinary: DENIES: Hematuria, Dysuria Musculoskeletal: DENIES: Back pain Except as stated in HPI: all other systems reviewed are Neg Past Family Social History Past Medical History Arthritis Hyperlipidemia Hypertension Pancreatitis Past Surgical History Status post right shoulder surgery Status post cholecystectomy Status post lumbar surgery with laminectomy and fusion Status post tonsillectomy Reported Medications Refer to EMR Allergies: Coded Allergies: No Known Allergies (Verified , 05/29/14) Active Ordered Medications Refer to EMR Family History Reviewed and noncontributory Social History Smoker one half pack per day Occasional alcohol use Denies history of illicit drug abuse Physical Exam Vital Signs Date Time Temp Pulse Resp B/P (MAP) Pulse Ox O2 Delivery O2 Flow Rate FiO2 01/09/17 08:00 98.4 61 26 103/58 (73) 96 01/09/17 07:00 59 23 91/57 (68) 94 01/09/17 06:00 57 01/09/17 04:03 60 112/62 01/09/17 04:00 60 01/09/17 04:00 98.3 60 22 112/62 (79) 94 01/09/17 02:00 70 01/09/17 00:00 64 01/09/17 00:00 98.0 64 26 111/71 (84) 96 01/08/17 22:00 60 01/08/17 20:00 62 01/08/17 20:00 98.2 62 29 103/61 (75) 97 01/08/17 18:45 66 28 98/55 (69) 96 01/08/17 18:30 63 27 96/58 (71) 97 01/08/17 16:00 59 25 105/67 (80) 97 01/08/17 16:00 65 01/08/17 14:00 65 01/08/17 12:00 65 01/08/17 12:00 63 23 88/56 (67) 97 Physical Exam GENERAL: This is a well-nourished, well-developed patient, in no apparent distress. SKIN: No rashes, ecchymoses or lesions. Cool and dry. HEAD: Atraumatic. Normocephalic. No temporal or scalp tenderness. EYES: Pupils equal round and reactive. Extraocular motions intact. No scleral icterus. No injection or drainage. ENT: Nose without bleeding, purulent drainage or septal hematoma. Throat without erythema, tonsillar hypertrophy or exudate. Uvula midline. Airway patent. NECK: Trachea midline. No JVD or lymphadenopathy. Supple, nontender, no meningeal signs. GASTROINTESTINAL: Abdomen soft, non-tender, nondistended. No hepato-splenomegaly , or palpable masses. No guarding. GENITOURINARY: No CVA tenderness MUSCULOSKELETAL: Extremities without clubbing, cyanosis, or edema. No joint tenderness, effusion, or edema noted. No calf tenderness. Negative Homans sign bilaterally. NEUROLOGICAL: Awake and alert. Cranial nerves II through XII intact. Motor and sensory grossly within normal limits. Five out of 5 muscle strength in all muscle groups. Normal speech. Lab results reviewed: Yes Laboratory Tests Test 01/08/17 17:00 01/09/17 05:10 Urine Color COLORLESS Urine Turbidity CLEAR Urine pH 6.5 Urine Specific [place] 1.008 Urine Protein NEG Urine Glucose (UA) NEG Urine Ketones NEG Urine Occult Blood NEG Urine Nitrite NEG Urine Bilirubin NEG Urine Urobilinogen LESS THAN 2.0 Urine Leukocyte Esterase NEG Urine RBC LESS THAN 1 Urine WBC 2 Microscopic Urinalysis Comment CATH-CULT NOT IND White Blood Count 13.5 Red Blood Count 3.31 Hemoglobin 10.1 Hematocrit 30.1 Mean Corpuscular Volume 90.7 Mean Corpuscular Hemoglobin 30.4 Mean Corpuscular Hemoglobin Concent 33.5 Red Cell Distribution Width 14.7 Platelet Count 520 Mean Platelet Volume 7.5 Blood Urea Nitrogen 8 Creatinine 0.81 Random Glucose 101 Calcium Level 7.6 Sodium Level 134 Potassium Level 4.3 Chloride Level 104 Carbon Dioxide Level 20.8 Anion Gap 9 Estimat Glomerular Filtration Rate 70 Date/Time Source Procedure Growth Status 01/08/17 03:18 Blood Peripheral Aerobic Blood Culture - Preliminary NO GROWTH IN 1 DAY Resulted 01/08/17 03:18 Blood Peripheral Anaerobic Blood Culture - Preliminary NO GROWTH IN 1 DAY Resulted 01/04/17 16:50 Nasal Washing Influenza Types A,B Antigen (CHRIS) - Final NEGATIVE FOR FLU A AND B ANTIGEN.... Complete 01/07/17 16:00 Urine Catheterized Urine Urine Culture - Final NO GROWTH IN 48 HOURS. Complete Result Diagram: 01/09/17 0510 01/09/17 0510 Personally reviewed images: Yes Imaging Last Impressions Abdomen/Pelvis CT 01/08/17 0000 Signed Impressions: Service Date/Time: Sunday, January 08, 2017 01:46 - CONCLUSION: 4 mm distal right ureteral stone with moderate hydronephrosis and hydroureter. Small bilateral pleural effusions with passive atelectasis right greater than left. Zia Beauchamp MD Chest X-Ray 01/02/17 0000 Signed Impressions: Service Date/Time: Monday, January 02, 2017 16:43 - CONCLUSION: Worsening airspace process right lung. Kane Evans MD Assessment and Plan Assessment and Plan Urologic impression: Right hydroureteronephrosis secondary to a 4 mm obstructing right distal ureteral calculus Plan: #1 nothing by mouth after midnight #2 patient scheduled for cystoscopy, right retrograde pyelogram and right ureteral stent placement tomorrow morning #3 may eventually require ureteroscopic stone extraction the future if stone does not pass spontaneously Tray Mccormick MD Jan 09, 2017 11:22
--- NOTE | 2017-01-09 13:48 | HHI.PR ---
Subjective Remarks patient is awake and alert, tolerating po very well no nausea or vomiting, tolerating po continuous diarrhea Objective Vitals Vital Signs Date Time Temp Pulse Resp B/P (MAP) Pulse Ox O2 Delivery O2 Flow Rate FiO2 01/09/17 08:00 98.4 61 26 103/58 (73) 96 01/09/17 07:00 59 23 91/57 (68) 94 01/09/17 06:00 57 01/09/17 04:03 60 112/62 01/09/17 04:00 60 01/09/17 04:00 98.3 60 22 112/62 (79) 94 01/09/17 02:00 70 01/09/17 00:00 64 01/09/17 00:00 98.0 64 26 111/71 (84) 96 01/08/17 22:00 60 01/08/17 20:00 62 01/08/17 20:00 98.2 62 29 103/61 (75) 97 01/08/17 18:45 66 28 98/55 (69) 96 01/08/17 18:30 63 27 96/58 (71) 97 01/08/17 16:00 59 25 105/67 (80) 97 01/08/17 16:00 65 01/08/17 14:00 65 I/O 01/08/17 01/08/17 01/08/17 01/09/17 01/09/17 01/09/17 07:00 15:00 23:00 07:00 15:00 23:00 Intake Total 2072 ml 360 ml 380 ml Output Total 2600 ml 1800 ml 2250 ml Balance -528 ml -1440 ml -1870 ml Intake Oral 240 ml 360 ml 380 ml IV Total 1832 ml Output Urine Total 2600 ml 1800 ml 2250 ml # Bowel Movements 0 2 1 Result Diagram: 01/09/17 0510 01/09/17 0510 Imaging Last Impressions Abdomen/Pelvis CT 01/08/17 0000 Signed Impressions: Service Date/Time: Sunday, January 08, 2017 01:46 - CONCLUSION: 4 mm distal right ureteral stone with moderate hydronephrosis and hydroureter. Small bilateral pleural effusions with passive atelectasis right greater than left. Zia Beauchamp MD Chest X-Ray 01/02/17 0000 Signed Impressions: Service Date/Time: Monday, January 02, 2017 16:43 - CONCLUSION: Worsening airspace process right lung. Kane Evans MD Objective Remarks awake and alert and interactive , oriented x 3 anicteric right IJ line in place no nuchal rigidity lungs- no rales or wheezes regular rhythm abdomen soft, nontender, good bowel sounds, no guarding or rigidity extremities no edema moves all extremities spontaneously no neuro deficits Date of Insertion: Jan 02, 2017 Date of Removal: Jan 04, 2017 A/P Assessment and Plan 72 years old female Severe sepsis- still requiring low dose levophed drip. continue on IVF 150cc/ hr secondary to UTI- - history of recurrent UTI in the past now with ESBL- good urine output secondary to Pneumonia- + infiltrates, + cough - continue IVF 150 cc/hr - on IV antibotics- on Ertapenem/Zosyn/Zithromax - ff sputum cultures - ID Dr. Bower ff - CT shows right moderated hydronephrosis- will get Urology consult -repeat UA Persistent Diarrhea-- C Diff negative- on history per patient chronic- history of pancreatitis in the past replace volume - 150 cc/hr - see by GI- plan for scope this week -will try patient on Creon tid- started 01/08 Acute Anemia- - some dilutional component- getting aggressive hydration - GI as above - S/P 1 unit RBC- H and H stable Hypokalemia- - improved - electrolyte protocol per ICU HYpophosphatemia- imrpoved - replaced. and ff Respiratory: Obtain O2 sat greater than 92%. 02 1-4 L/m Wean as tolerated Bronchodilators every 6 hours scheduled, every 2 hours when necessary Incentive spirometry Cardiovascular: Maintain MAP greater than 65 mmHg Wean norepinephrine as tolerated Renal: I- oliveira out 01/04- patient voiding Endocrine: Glucose monitoring per ICU protocol -- SSI Prophylaxis: GI Prophylaxis Protonix DVT Prophylaxis -- SCDs Heparin twice a day Kanwal Dunn MD Jan 09, 2017 13:48
[2017-01-09] MEDS ORDERED: LOPERAMIDE HCL 2 MG CAP PO ONE (14:00)
[2017-01-09] MEDS: SODIUM CHLORIDE 0.9% FLUSH 10 ML FLUSH IV FLUSH SCH ×2 (17:28→21:04)
[2017-01-09] MEDS: ERTAPENEM INJ 1,000 MG in SODIUM CHLORIDE 0.9% INJ 100 ML IV SCH (21:03)
[2017-01-09] MEDS: AZITHROMYCIN INJ 500 MG in SODIUM CHLOR 0.9% 250 ML INJ 250 ML IV SCH (21:04)
[2017-01-09] MEDS: ZOLPIDEM TARTRATE 5 MG TAB PO PRN (21:11)
[2017-01-10] VITALS (13 sets, daily range): BP systolic 93–131; BP diastolic 54–67; PULSE 58–69; RESP 16–28; TEMP 97.4–98.4; O2SAT 96–99
[2017-01-10] MEDS: PIPERACIL-TAZO 4.5 GM PREMIX 100 ML IV SCH ×5 (00:13→21:39)
[2017-01-10] MEDS: CHLORHEXIDINE GLUCONATE 2 % 1 PACK (2 CLOTHS) TOP SCH (00:14)
[2017-01-10] MEDS: HEPARIN SODIUM - SQ 10,000 UNITS/ML VIAL SQ SCH ×2 (00:35→15:27)
[2017-01-10] MEDS: NOREPINEPHRINE-DEXTROSE DRIP 250 ML IV PRN (02:49)
[2017-01-10 05:21] LABS: AUTOMATED NEUTROPHIL # 8.1 TH/MM3 (1.8-7.7); BASOPHIL # 0.1 TH/MM3 (0-0.2); BASOPHIL % 0.5 % (0.0-2.0); EOSINOPHIL # 0.4 TH/MM3 (0-0.4); EOSINOPHIL % 3.8 % (0.0-4.0); HEMATOCRIT 29.9 % (35.0-46.0); HEMO FLAGS DIFF FINAL; LYMPHOCYTE # 1.6 TH/MM3 (1.0-4.8); MEAN CELL VOLUME 90.8 FL (80.0-100.0); MEAN CORPUSCULAR HEMOGLOBIN 29.8 PG (27.0-34.0); MEAN CORPUSCULAR HGB CONC 32.8 % (32.0-36.0); MONO % 6.3 % (0.0-8.0); NEUT % 74.4 % (16.0-70.0); PLATELET COUNT 561 TH/MM3 (150-450); RED BLOOD COUNT 3.29 MIL/MM3 (4.00-5.30); RED CELL DISTRIBUTION WIDTH 14.8 % (11.6-17.2); WHITE BLOOD COUNT 10.9 TH/MM3 (4.0-11.0)
[2017-01-10 05:42] LABS: ALT (GPT) 9 U/L (10-53); ANION GAP 10 MEQ/L (5-15); AST (GOT) 10 U/L (15-37); BICARBONATE 21.8 MEQ/L (21.0-32.0); BLOOD UREA NITROGEN 8 MG/DL (7-18); CHLORIDE 108 MEQ/L (98-107); GLOMERULAR FILTRATION RATE 61 ML/MIN (>89); POTASSIUM 4.7 MEQ/L (3.5-5.1); SODIUM (NA) 140 MEQ/L (136-145)
[2017-01-10 05:44] LABS: ALKALINE PHOSPHATASE 47 U/L (45-117); TOTAL BILIRUBIN ADULT 0.2 MG/DL (0.2-1.0)
[2017-01-10] MEDS: INSULIN ASPART SUPPLEMENTAL SCALE SQ SCH ×4 (06:25→21:00)
[2017-01-10] MEDS: LIPASE/PROTEASE/AMYLASE (24,000/76,000/120,000) CAP PO SCH ×3 (07:57→16:32)
[2017-01-10] MEDS: DOCUSATE SODIUM 50 MG/SENNA 8.6 MG TAB PO SCH ×2 (07:57→21:39)
[2017-01-10] MEDS: SODIUM CHLORIDE 0.9% FLUSH 10 ML FLUSH IV FLUSH SCH ×2 (07:57→21:00)
[2017-01-10] MEDS: POTASSIUM CHLORIDE INJ 30 MEQ in SODIUM CHLOR 0.9% 1000 ML INJ 1,000 ML IV SCH ×3 (10:17→21:39)
[2017-01-10] MEDS ORDERED: ePHEDrine/NS 25 MG/5 ML SYR IV ONE (12:00)
[2017-01-10] MEDS ORDERED: ONDANSETRON HCL 4 MG/2 ML VIAL IV PUSH ONE (12:00)
[2017-01-10] MEDS ORDERED: PROPOFOL 200 MG/20 ML AMP IV ONE (12:00)
--- NOTE | 2017-01-10 13:19 | HHI.PR ---
Addendum to Inpatient Note Additional Information pt is off the floor for urological procedure will see in am latests labs, micro noted Esme Bower MD Jan 10, 2017 13:19
[2017-01-10] MEDS ORDERED: IOHEXOL 350 MG/ML 50 ML BTL (for RAD DIAG) OTHER ONE (14:12)
--- NOTE | 2017-01-10 14:25 | PD.OP ---
Operative Report Date of Surgery: Jan 10, 2017 Preoperative Diagnosis: (1) Ureteral calculus, right Postoperative Diagnosis: (1) Ureteral calculus, right Procedure: Cystoscopy, right retrograde pyelogram and right sided termite technician ureteral stent placement Anesthesia: General Surgeon: Tray Mccormick Vocational Technical Education Teacher(s): None Operation and Findings: Indication for procedure: The case of a pleasant 72 year-old female with a 4 mm right distal ureteral calculus causing right hydroureteronephrosis. She presents now for cystoscopy, right retrograde pyelogram and right ureteral stent placement. Operative procedure in detail: Patient was brought to the operating suite and placed supine on cystoscopy table. She was then placed and general endotracheal anesthesia. She was then repositioned in the dorsolithotomy position and prepped and draped in normal sterile fashion. After appropriate timeout was undertaken I proceeded with cystoscopic evaluation utilizing the rigid cystoscope with the 20 [place] sheath and 30 lens. Both right and left ureteral orifices were in correct anatomic position. There was clear reflux done on the left and no reflux noted on the right side. I next utilized a 6 Canadian open-ended ureteral catheter and performed a right retrograde pyelogram study. The patient was noted to have right hydroureteronephrosis all the way down to a distal obstructing calculus. Since patient was admitted for sepsis I elected to just place a stent not attempt to retrieve the stone. A sensor 0.035 wire was advanced up the patient's right ureter up to the right renal pelvis and a 6 Canadian 24 cm long-term [place] stent was placed on the both cystoscopic and fluoroscopic guidance without difficulty. Once the stent was in proper position and the trailing string was removed. A 16 Canadian 10 cc Goins catheter was next placed and connected to gravity drainage. The patient tolerated the procedures without complications and was transferred to the PACU in satisfactory condition. Tray Mccormick MD Jan 10, 2017 14:25
[2017-01-10] MEDS ORDERED: DO NOT ADM ANY ANTICOAGULANT DRUGS PRN (14:34)
--- NOTE | 2017-01-10 16:48 | HHI.GIFU ---
Subjective Remarks Resting in bed. No n/v. No abdominal pain. Has flexiseal for diarrhea. D/W patient CT results, stool studies results, and our recommendation that she undergo colonoscopy for further evaluation of her diarrhea. She is very reluctant to have coloscopy and states that she will consider it, but will likely not proceed with this. (Ana Hernandez) Objective Vitals I&O Vital Signs Date Time Temp Pulse Resp B/P (MAP) Pulse Ox O2 Delivery O2 Flow Rate FiO2 01/10/17 16:00 97.4 66 18 126/67 (86) 96 01/10/17 16:00 66 01/10/17 15:31 67 01/10/17 15:29 97.4 67 16 131/67 (88) 97 01/10/17 15:10 97.8 66 16 123/74 (90) 99 Nasal Cannula 2 01/10/17 15:00 64 16 126/75 (92) 98 Nasal Cannula 2 01/10/17 14:45 65 16 125/72 (89) 97 Nasal Cannula 2 01/10/17 14:34 99.0 65 16 124/69 (87) 99 Nasal Cannula 3 01/10/17 13:15 56 20 92/54 (67) 99 01/10/17 13:00 57 20 93/53 (66) 99 01/10/17 12:45 55 20 95/50 (65) 99 01/10/17 12:30 57 20 102/58 (73) 99 01/10/17 12:15 60 22 99/56 (70) 99 01/10/17 12:00 56 20 88/50 (63) 99 01/10/17 11:45 56 15 97/65 (76) 99 01/10/17 11:30 58 15 89/55 (66) 99 01/10/17 11:24 61 14 88/54 (65) 99 01/10/17 10:00 59 01/10/17 08:29 98 01/10/17 08:00 97.6 59 24 93/54 (67) 97 01/10/17 08:00 59 01/10/17 06:00 58 01/10/17 04:00 60 01/10/17 04:00 98.4 60 21 107/65 (79) 99 01/10/17 02:49 58 97/53 01/10/17 02:00 61 01/10/17 00:00 98.2 61 28 108/64 (79) 96 01/10/17 00:00 61 01/09/17 22:00 58 01/09/17 20:00 61 01/09/17 20:00 98.3 61 28 93/53 (66) 99 01/09/17 19:00 67 29 93/58 (70) 99 01/09/17 18:00 62 25 101/62 (75) 98 I/O 01/09/17 01/09/17 01/09/17 01/10/17 01/10/17 01/10/17 07:00 15:00 23:00 07:00 15:00 23:00 Intake Total 380 ml 240 ml 100 ml 600 ml Output Total 2250 ml 2300 ml 2450 ml 950 ml 250 ml Balance -1870 ml -2060 ml -2450 ml -850 ml 350 ml Intake Oral 380 ml 240 ml IV Total 100 ml Other 600 ml Output Urine Total 2250 ml 2300 ml 2450 ml 950 ml 250 ml # Bowel Movements 1 Laboratory Laboratory Tests Test 01/10/17 05:00 White Blood Count 10.9 Red Blood Count 3.29 Hemoglobin 9.8 Hematocrit 29.9 Mean Corpuscular Volume 90.8 Mean Corpuscular Hemoglobin 29.8 Mean Corpuscular Hemoglobin Concent 32.8 Red Cell Distribution Width 14.8 Platelet Count 561 Mean Platelet Volume 7.3 Neutrophils (%) (Auto) 74.4 Lymphocytes (%) (Auto) 15.0 Monocytes (%) (Auto) 6.3 Eosinophils (%) (Auto) 3.8 Basophils (%) (Auto) 0.5 Neutrophils # (Auto) 8.1 Lymphocytes # (Auto) 1.6 Monocytes # (Auto) 0.7 Eosinophils # (Auto) 0.4 Basophils # (Auto) 0.1 CBC Comment DIFF FINAL Differential Comment Blood Urea Nitrogen 8 Creatinine 0.91 Random Glucose 82 Total Protein 5.8 Albumin 1.5 Calcium Level 8.1 Alkaline Phosphatase 47 Aspartate Amino Transf (AST/SGOT) 10 Alanine Aminotransferase (ALT/SGPT) 9 Total Bilirubin 0.2 Sodium Level 140 Potassium Level 4.7 Chloride Level 108 Carbon Dioxide Level 21.8 Anion Gap 10 Estimat Glomerular Filtration Rate 61 Date/Time Source Procedure Growth Status 01/08/17 03:18 Blood Peripheral Aerobic Blood Culture - Preliminary NO GROWTH IN 2 DAYS Resulted 01/08/17 03:18 Blood Peripheral Anaerobic Blood Culture - Preliminary NO GROWTH IN 2 DAYS Resulted 01/09/17 08:30 Stool Stool Cryptosporidium Exam - Final NEGATIVE - NO CRYPTOSPORIDIUM ANTIGEN... Complete 01/09/17 08:30 Stool Stool Stool Pus (CHRIS) - Final NO WBC'S SEEN Complete 01/09/17 08:30 Stool Stool Giardia Antigen (CHRIS) - Final NEGATIVE - NO GIARDIA ANTIGEN DETECTE... Complete 01/04/17 16:50 Nasal Washing Influenza Types A,B Antigen (CHRIS) - Final NEGATIVE FOR FLU A AND B ANTIGEN.... Complete 01/07/17 16:00 Urine Catheterized Urine Urine Culture - Final NO GROWTH IN 48 HOURS. Complete Imaging Last Impressions Abdomen/Pelvis CT 01/08/17 0000 Signed Impressions: Service Date/Time: Sunday, January 08, 2017 01:46 - CONCLUSION: 4 mm distal right ureteral stone with moderate hydronephrosis and hydroureter. Small bilateral pleural effusions with passive atelectasis right greater than left. Zia Beauchamp MD Chest X-Ray 01/02/17 0000 Signed Impressions: Service Date/Time: Monday, January 02, 2017 16:43 - CONCLUSION: Worsening airspace process right lung. Kane Evans MD Physical Exam HEENT: Normocephalic; atraumatic; no jaundice. CHEST: CTA CARDIAC: RRR. ABDOMEN: Soft, nondistended, nontender; no hepatosplenomegaly; bowel sounds are present in all four quadrants. Flexiseal with liquid brown stool EXTREMITIES: No clubbing, cyanosis, or edema. SKIN: Normal; no rash; no jaundice. SPECIAL DUTY NURSE: No focal deficits; alert and oriented times three. (Ana Hernandez [facility]) Assessment and Plan Plan ASSESSMENT: - Chronic diarrhea. Pt reports long history of chronic diarrhea, usually 3-4 bowel movements per day. Does report a history of RA and a hx of colitis in the past, but does not know if this was infectious vs. inflammatory vs. nonspecific. CDifficile PCR negative. Stool studies unremarkable. CT scan abdomen and pelvis without contrast (01/08/17)---> 4 mm distal right ureteral stone with moderate hydronephrosis and hydroureter. Small bilateral pleural effusions with passive atelectasis right greater than left. Last colonoscopy was several years ago- does not know when or the findings. Fhx of colon cancer in maternal uncle. Pt continues to have diarrhea. D/W patient unremarkable stool studies, noncontrasted ct, and recommendation for colonoscopy. She is currently refusing, but states she will think about it. She was started on creon. Trial of dicyclomine. - Sepsis, RLL pneumonia and UTI with ESBL, (+) Klebsiella pneumoniae. Abx per attending. - Leukocytosis. Abx as above. WBC 13.6. - Anemia. 9.8/29.9 PLAN: - TAMMIE - Trial of dicyclomine - Abx per ID - Monitor labs - Recommend colonoscopy- pt currently refusing, will consider - Pt seen and examined by Dr. Bob and myself and this note is written on his behalf (Ana Hernandez) Physician Comments Agree with the paln as above, colonoscopy when patient agree. Further recommendations to follow. (Lilliana Bob MD) Ana Hernandez Jan 10, 2017 16:48 Lilliana Bob MD Jan 10, 2017 21:56
[2017-01-10] MEDS: DICYCLOMINE HCL 20 MG TAB PO SCH (18:00)
--- NOTE | 2017-01-10 18:21 | HHI.PR ---
Subjective Remarks Patient is feeling better. She remains on pressors. GI scope planned. Objective Vital Signs Date Time Temp Pulse Resp B/P (MAP) Pulse Ox O2 Delivery O2 Flow Rate FiO2 01/10/17 18:00 69 01/10/17 16:00 97.4 66 18 126/67 (86) 96 01/10/17 16:00 66 01/10/17 15:31 67 01/10/17 15:29 97.4 67 16 131/67 (88) 97 01/10/17 15:10 97.8 66 16 123/74 (90) 99 Nasal Cannula 2 01/10/17 15:00 64 16 126/75 (92) 98 Nasal Cannula 2 01/10/17 14:45 65 16 125/72 (89) 97 Nasal Cannula 2 01/10/17 14:34 99.0 65 16 124/69 (87) 99 Nasal Cannula 3 01/10/17 13:15 56 20 92/54 (67) 99 01/10/17 13:00 57 20 93/53 (66) 99 01/10/17 12:45 55 20 95/50 (65) 99 01/10/17 12:30 57 20 102/58 (73) 99 01/10/17 12:15 60 22 99/56 (70) 99 01/10/17 12:00 56 20 88/50 (63) 99 01/10/17 11:45 56 15 97/65 (76) 99 01/10/17 11:30 58 15 89/55 (66) 99 01/10/17 11:24 61 14 88/54 (65) 99 01/10/17 10:00 59 01/10/17 08:29 98 01/10/17 08:00 97.6 59 24 93/54 (67) 97 01/10/17 08:00 59 01/10/17 06:00 58 01/10/17 04:00 60 01/10/17 04:00 98.4 60 21 107/65 (79) 99 01/10/17 02:49 58 97/53 01/10/17 02:00 61 01/10/17 00:00 98.2 61 28 108/64 (79) 96 01/10/17 00:00 61 01/09/17 22:00 58 01/09/17 20:00 61 01/09/17 20:00 98.3 61 28 93/53 (66) 99 01/09/17 19:00 67 29 93/58 (70) 99 I/O 01/09/17 01/09/17 01/09/17 01/10/17 01/10/17 01/10/17 07:00 15:00 23:00 07:00 15:00 23:00 Intake Total 380 ml 240 ml 100 ml 1560 ml Output Total 2250 ml 2300 ml 2450 ml 950 ml 1300 ml Balance -1870 ml -2060 ml -2450 ml -850 ml 260 ml Intake Oral 380 ml 240 ml 480 ml IV Total 100 ml 480 ml Other 600 ml Output Urine Total 2250 ml 2300 ml 2450 ml 950 ml 1200 ml Stool Total 100 ml # Bowel Movements 1 Result Diagram: 01/10/17 0500 01/10/17 0500 Objective Remarks GENERAL: NAD, A&Ox3, Goins in place HEAD: Normocephalic. NECK: Supple, trachea midline. No lymphadenopathy. EYES: No scleral icterus. No injection or drainage. CARDIOVASCULAR: Regular rate and rhythm without murmurs, gallops, or rubs. RESPIRATORY: Breath sounds equal bilaterally. No accessory muscle use. GASTROINTESTINAL: Abdomen soft, non-tender, nondistended. Rectal tube in place MUSCULOSKELETAL: No cyanosis, or edema. SKIN: Warm and dry. NEURO: No focal neurological deficitis. A/P Problem List: (1) Pneumonia ICD Code: J18.9 - Pneumonia, unspecified organism Status: Acute (2) Severe sepsis ICD Code: A41.9 - Sepsis, unspecified organism; R65.20 - Severe sepsis without septic shock Status: Acute Assessment and Plan Assessment and Plan 72 years old female admitted with severe sepsis and pneumonia Severe sepsis Continue IV fluids Patient still requiring levo fed drip Following the ICU UTI Right hydronephrosis Pneumonia ID following Continue ertapenem, Zosyn, and azithromycin Urology following Persistent Diarrhea Continue with rectal tube GI following Acute anemia Follow H&H Hypokalemia Follow and replace as needed Hypophosphatemia Following replace as needed DVT prophylaxis SCDs Heparin Problem Qualifiers (1) Pneumonia: Qualified Codes: J18.1 - Lobar pneumonia, unspecified organism Amandeep Bryant MD Jan 10, 2017 18:21
[2017-01-10] MEDS: ERTAPENEM INJ 1,000 MG in SODIUM CHLORIDE 0.9% INJ 100 ML IV SCH (21:37)
[2017-01-10] MEDS: AZITHROMYCIN INJ 500 MG in SODIUM CHLOR 0.9% 250 ML INJ 250 ML IV SCH (21:39)
[2017-01-10] MEDS: ZOLPIDEM TARTRATE 5 MG TAB PO PRN (22:18)
[2017-01-11] VITALS (14 sets, daily range): BP systolic 88–113; BP diastolic 53–69; PULSE 60–68; RESP 18–31; TEMP 96.4–98.7; O2SAT 94–100
[2017-01-11] MEDS: CHLORHEXIDINE GLUCONATE 2 % 1 PACK (2 CLOTHS) TOP SCH (04:00)
[2017-01-11 04:28] LABS: AUTOMATED NEUTROPHIL # 9.3 TH/MM3 (1.8-7.7); BASOPHIL % 0.4 % (0.0-2.0); EOSINOPHIL # 0.1 TH/MM3 (0-0.4); EOSINOPHIL % 0.6 % (0.0-4.0); HEMATOCRIT 29.9 % (35.0-46.0); HEMO FLAGS DIFF FINAL; LYMPH % 14.7 % (9.0-44.0); LYMPHOCYTE # 1.7 TH/MM3 (1.0-4.8); MEAN CELL VOLUME 90.9 FL (80.0-100.0); MEAN CORPUSCULAR HEMOGLOBIN 29.2 PG (27.0-34.0); MEAN CORPUSCULAR HGB CONC 32.1 % (32.0-36.0); MONO % 4.3 % (0.0-8.0); PLATELET COUNT 635 TH/MM3 (150-450); RED BLOOD COUNT 3.29 MIL/MM3 (4.00-5.30); RED CELL DISTRIBUTION WIDTH 14.9 % (11.6-17.2); WHITE BLOOD COUNT 11.6 TH/MM3 (4.0-11.0)
[2017-01-11 04:58] LABS: ALT (GPT) 10 U/L (10-53); ANION GAP 10 MEQ/L (5-15); AST (GOT) 13 U/L (15-37); BICARBONATE 22.2 MEQ/L (21.0-32.0); BLOOD UREA NITROGEN 9 MG/DL (7-18); CHLORIDE 109 MEQ/L (98-107); GLOMERULAR FILTRATION RATE 63 ML/MIN (>89); POTASSIUM 4.6 MEQ/L (3.5-5.1); SODIUM (NA) 141 MEQ/L (136-145)
[2017-01-11 05:01] LABS: ALKALINE PHOSPHATASE 49 U/L (45-117); TOTAL BILIRUBIN ADULT 0.2 MG/DL (0.2-1.0)
[2017-01-11] MEDS: INSULIN ASPART SUPPLEMENTAL SCALE SQ SCH ×4 (06:10→21:00)
[2017-01-11] MEDS: HEPARIN SODIUM - SQ 10,000 UNITS/ML VIAL SQ SCH ×2 (06:17→16:08)
[2017-01-11] MEDS: PIPERACIL-TAZO 4.5 GM PREMIX 100 ML IV SCH ×4 (06:17→21:36)
[2017-01-11] MEDS: POTASSIUM CHLORIDE INJ 30 MEQ in SODIUM CHLOR 0.9% 1000 ML INJ 1,000 ML IV SCH ×4 (07:18→21:36)
[2017-01-11] MEDS: SODIUM CHLORIDE 0.9% FLUSH 10 ML FLUSH IV FLUSH SCH ×2 (07:41→21:00)
[2017-01-11] MEDS: DICYCLOMINE HCL 20 MG TAB PO SCH ×3 (07:42→16:08)
[2017-01-11] MEDS: DOCUSATE SODIUM 50 MG/SENNA 8.6 MG TAB PO SCH ×2 (07:42→21:35)
[2017-01-11] MEDS: LIPASE/PROTEASE/AMYLASE (24,000/76,000/120,000) CAP PO SCH ×3 (07:42→16:07)
[2017-01-11] MEDS: NOREPINEPHRINE-DEXTROSE DRIP 250 ML IV PRN (13:48)
--- NOTE | 2017-01-11 14:22 | HHI.PR ---
Subjective Remarks Pressors continue. Patient is feeling better otherwise and has no new complaints. She is hoping to have the Goins catheter and rectal tube removed soon. Objective Vital Signs Date Time Temp Pulse Resp B/P (MAP) Pulse Ox O2 Delivery O2 Flow Rate FiO2 01/11/17 13:48 60 103/57 01/11/17 10:00 63 01/11/17 08:40 61 109/72 01/11/17 08:00 63 01/11/17 08:00 97.7 63 18 113/65 (81) 100 01/11/17 07:28 100 21 01/11/17 06:00 60 01/11/17 04:00 96.4 62 23 90/58 (69) 98 01/11/17 04:00 62 01/11/17 02:00 66 01/11/17 00:00 63 01/11/17 00:00 97.6 63 18 88/53 (65) 96 01/10/17 22:00 63 01/10/17 20:00 97.7 65 26 116/67 (83) 97 01/10/17 20:00 65 01/10/17 18:00 69 01/10/17 16:00 97.4 66 18 126/67 (86) 96 01/10/17 16:00 66 01/10/17 15:31 67 01/10/17 15:29 97.4 67 16 131/67 (88) 97 01/10/17 15:10 97.8 66 16 123/74 (90) 99 Nasal Cannula 2 01/10/17 15:00 64 16 126/75 (92) 98 Nasal Cannula 2 01/10/17 14:45 65 16 125/72 (89) 97 Nasal Cannula 2 01/10/17 14:34 99.0 65 16 124/69 (87) 99 Nasal Cannula 3 I/O 01/10/17 01/10/17 01/10/17 01/11/17 01/11/17 01/11/17 07:00 15:00 23:00 07:00 15:00 23:00 Intake Total 100 ml 2110 ml 2033 ml 100 ml Output Total 2450 ml 950 ml 1300 ml 2350 ml Balance -2450 ml -850 ml 810 ml -317 ml 100 ml Intake Oral 480 ml 0 ml IV Total 100 ml 1030 ml 2033 ml 100 ml Other 600 ml Output Urine Total 2450 ml 950 ml 1200 ml 2050 ml Stool Total 100 ml 300 ml Result Diagram: 01/11/1734901/11/17349 Objective Remarks GENERAL: NAD, A&Ox3, Goins in place HEAD: Normocephalic. NECK: Supple, trachea midline. No lymphadenopathy. EYES: No scleral icterus. No injection or drainage. CARDIOVASCULAR: Regular rate and rhythm without murmurs, gallops, or rubs. RESPIRATORY: Breath sounds equal bilaterally. No accessory muscle use. GASTROINTESTINAL: Abdomen soft, non-tender, nondistended. Rectal tube in place MUSCULOSKELETAL: No cyanosis, or edema. SKIN: Warm and dry. NEURO: No focal neurological deficitis. A/P Problem List: (1) Pneumonia ICD Code: J18.9 - Pneumonia, unspecified organism Status: Acute (2) Severe sepsis ICD Code: A41.9 - Sepsis, unspecified organism; R65.20 - Severe sepsis without septic shock Status: Acute Assessment and Plan Assessment and Plan 72 years old female admitted with severe sepsis and pneumonia. Continue Goins catheter for approximately 2 more days before considering a void trial. Rectal tube to continue until cleared by GI. She still needs pressors somewhat stay in the ICU for now. Severe sepsis Continue IV fluids Patient still requiring levo fed drip Following the ICU UTI Right hydronephrosis Pneumonia ID following Continue ertapenem, Zosyn, and azithromycin Urology following Persistent Diarrhea Continue with rectal tube GI following Acute anemia Follow H&H Hypokalemia Follow and replace as needed Hypophosphatemia Following replace as needed DVT prophylaxis SCDs Heparin Problem Qualifiers (1) Pneumonia: Qualified Codes: J18.1 - Lobar pneumonia, unspecified organism Amandeep Bryant MD Jan 11, 2017 14:22
--- NOTE | 2017-01-11 14:23 | HHI.IDPN ---
Subjective Subjective Remarks sp Cystoscopy, right retrograde pyelogram and right sided termite helper ureteral stent placement om Jan [address] Mccormick co fatigue aferile Antibiotics azithro ertapenam Allergies: Coded Allergies: No Known Allergies (Verified , 01/13/17) Objective . Vital Signs Date Time Temp Pulse Resp B/P (MAP) Pulse Ox O2 Delivery O2 Flow Rate FiO2 01/11/17 13:48 60 103/57 01/11/17 10:00 63 01/11/17 08:40 61 109/72 01/11/17 08:00 63 01/11/17 08:00 97.7 63 18 113/65 (81) 100 01/11/17 07:28 100 21 01/11/17 06:00 60 01/11/17 04:00 96.4 62 23 90/58 (69) 98 01/11/17 04:00 62 01/11/17 02:00 66 01/11/17 00:00 63 01/11/17 00:00 97.6 63 18 88/53 (65) 96 01/10/17 22:00 63 01/10/17 20:00 97.7 65 26 116/67 (83) 97 01/10/17 20:00 65 01/10/17 18:00 69 01/10/17 16:00 97.4 66 18 126/67 (86) 96 01/10/17 16:00 66 01/10/17 15:31 67 01/10/17 15:29 97.4 67 16 131/67 (88) 97 01/10/17 15:10 97.8 66 16 123/74 (90) 99 Nasal Cannula 2 01/10/17 15:00 64 16 126/75 (92) 98 Nasal Cannula 2 01/10/17 14:45 65 16 125/72 (89) 97 Nasal Cannula 2 01/10/17 14:34 99.0 65 16 124/69 (87) 99 Nasal Cannula 3 01/11/17 01/11/17 01/12/17 15:00 23:00 07:00 Intake Total 100 ml Balance 100 ml IV Total 100 ml . Laboratory Tests Test 01/10/17 05:00 01/11/17 03:50 White Blood Count 10.9 TH/MM3 11.6 TH/MM3 Red Blood Count 3.29 MIL/MM3 3.29 MIL/MM3 Hemoglobin 9.8 GM/DL 9.6 GM/DL Hematocrit 29.9 % 29.9 % Mean Corpuscular Volume 90.8 FL 90.9 FL Mean Corpuscular Hemoglobin 29.8 PG 29.2 PG Mean Corpuscular Hemoglobin Concent 32.8 % 32.1 % Red Cell Distribution Width 14.8 % 14.9 % Platelet Count 561 TH/MM3 635 TH/MM3 Mean Platelet Volume 7.3 FL 7.4 FL Neutrophils (%) (Auto) 74.4 % 80.0 % Lymphocytes (%) (Auto) 15.0 % 14.7 % Monocytes (%) (Auto) 6.3 % 4.3 % Eosinophils (%) (Auto) 3.8 % 0.6 % Basophils (%) (Auto) 0.5 % 0.4 % Neutrophils # (Auto) 8.1 TH/MM3 9.3 TH/MM3 Lymphocytes # (Auto) 1.6 TH/MM3 1.7 TH/MM3 Monocytes # (Auto) 0.7 TH/MM3 0.5 TH/MM3 Eosinophils # (Auto) 0.4 TH/MM3 0.1 TH/MM3 Basophils # (Auto) 0.1 TH/MM3 0.0 TH/MM3 CBC Comment DIFF FINAL DIFF FINAL Differential Comment Laboratory Tests Test 01/10/17 05:00 01/11/17 03:50 Blood Urea Nitrogen 8 MG/DL 9 MG/DL Creatinine 0.91 MG/DL 0.89 MG/DL Random Glucose 82 MG/DL 103 MG/DL Total Protein 5.8 GM/DL 5.9 GM/DL Albumin 1.5 GM/DL 1.7 GM/DL Calcium Level 8.1 MG/DL 8.0 MG/DL Alkaline Phosphatase 47 U/L 49 U/L Aspartate Amino Transf (AST/SGOT) 10 U/L 13 U/L Alanine Aminotransferase (ALT/SGPT) 9 U/L 10 U/L Total Bilirubin 0.2 MG/DL 0.2 MG/DL Sodium Level 140 MEQ/L 141 MEQ/L Potassium Level 4.7 MEQ/L 4.6 MEQ/L Chloride Level 108 MEQ/L 109 MEQ/L Carbon Dioxide Level 21.8 MEQ/L 22.2 MEQ/L Anion Gap 10 MEQ/L 10 MEQ/L Estimat Glomerular Filtration Rate 61 ML/MIN 63 ML/MIN Phosphorus Level 4.0 MG/DL Magnesium Level 2.0 MG/DL Microbiology Date/Time Source Procedure Growth Status 01/09/17 08:30 Stool Stool Cryptosporidium Exam - Final NEGATIVE - NO CRYPTOSPORIDIUM ANTIGEN... Complete 01/09/17 08:30 Stool Stool Stool Pus ([facility]) - Final NO WBC'S SEEN Complete 01/09/17 08:30 Stool Stool Giardia Antigen ([facility]) - Final NEGATIVE - NO GIARDIA ANTIGEN DETECTE... Complete 01/09/17 08:30 Stool Stool - Final NO ENTERIC PATHOGENS DETECTED BY PCR... Complete Imaging Last Impressions Abdomen/Pelvis CT 01/08/17 0000 Signed Impressions: Service Date/Time: Sunday, January 08, 2017 01:46 - CONCLUSION: 4 mm distal right ureteral stone with moderate hydronephrosis and hydroureter. Small bilateral pleural effusions with passive atelectasis right greater than left. Zia Beauchamp MD Chest X-Ray 01/02/17 0000 Signed Impressions: Service Date/Time: Monday, January 02, 2017 16:43 - CONCLUSION: Worsening airspace process right lung. Kane Evans MD Physical Exam GCONSTITUTIONAL/GENERAL: This is a thin elderly femeale patient, in no apparent distress. Appears weak TUBES/LINES/DRAINS: SKIN: No jaundice, rashes, or lesions. Skin temperature appropriate. Not diaphoretic. CARDIOVASCULAR: Regular rate and rhythm without murmurs, gallops, or rubs. No JVD. Peripheral pulses symmetric. RESPIRATORY/CHEST: Symmetric, unlabored respirations. Clear to auscultation. Breath sounds equal bilaterally. No wheezes, rales, or rhonchi. GASTROINTESTINAL: Abdomen soft, non-tender, nondistended. No hepato-splenomegaly , or palpable masses. No guarding. Bowel sounds present. MUSCULOSKELETAL: Extremities without clubbing, cyanosis, or edema. No joint tenderness or effusion noted. No calf tenderness. No mottling or clubbing. : cath in place with clear light yellow urine; UOP ia good NEUROLOGICAL: Awake and alert. Motor and sensory grossly within normal limits. Follows commands. Clear speech. Moves all extremities. PSYCHIATRIC: No obvious anxiety/depression. no apparent hallucinations or other psychotic thought process. Assessment & Plan Remarks RLL PNA ? ethiology: pr is unable to expectorate UTI ESBL + Kleb pneumo Obtructive uropathive 2/2 distal R ureter stone sp Cystoscopy, right retrograde pyelogram and right sided termite helper ureteral stent placement om Jan [address] Mccormick Gram positive rupali bacteremia, pleomorphic, 1/ : likely cw contaminant New fever lielky 2/2 UTI in the settings of obstruction abx associated diarrhea - c.diff negative stool pathogens negative as well REC's: cont Ertapenem x 14 days total (thru 01/17) , when reafy to be d/c 'fd instead of Ertapenem will use Bactrim DS 1 po bid complete azithromycin Esme Bower MD Jan 11, 2017 14:23
[2017-01-11] MEDS: ERTAPENEM INJ 1,000 MG in SODIUM CHLORIDE 0.9% INJ 100 ML IV SCH (21:35)
[2017-01-11] MEDS: ZOLPIDEM TARTRATE 5 MG TAB PO PRN (21:36)
[2017-01-12] VITALS (19 sets, daily range): BP systolic 93–109; BP diastolic 57–72; PULSE 54–75; RESP 20–31; TEMP 97.1–98.8; O2SAT 95–100
[2017-01-12] MEDS: CHLORHEXIDINE GLUCONATE 2 % 1 PACK (2 CLOTHS) TOP SCH (04:00)
[2017-01-12] MEDS: HEPARIN SODIUM - SQ 10,000 UNITS/ML VIAL SQ SCH ×3 (05:35→18:00)
[2017-01-12] MEDS: PIPERACIL-TAZO 4.5 GM PREMIX 100 ML IV SCH ×3 (05:35→18:04)
[2017-01-12] MEDS: POTASSIUM CHLORIDE INJ 30 MEQ in SODIUM CHLOR 0.9% 1000 ML INJ 1,000 ML IV SCH (05:36)
[2017-01-12 06:15] LABS: AUTOMATED NEUTROPHIL # 7.9 TH/MM3 (1.8-7.7); BASOPHIL # 0.1 TH/MM3 (0-0.2); BASOPHIL % 0.8 % (0.0-2.0); EOSINOPHIL # 0.3 TH/MM3 (0-0.4); HEMATOCRIT 29.5 % (35.0-46.0); HEMO FLAGS DIFF FINAL; LYMPH % 17.5 % (9.0-44.0); LYMPHOCYTE # 1.9 TH/MM3 (1.0-4.8); MEAN CELL VOLUME 91.3 FL (80.0-100.0); MEAN CORPUSCULAR HEMOGLOBIN 31.4 PG (27.0-34.0); MEAN CORPUSCULAR HGB CONC 34.5 % (32.0-36.0); MONO % 4.6 % (0.0-8.0); NEUT % 74.1 % (16.0-70.0); PLATELET COUNT 578 TH/MM3 (150-450); RED BLOOD COUNT 3.24 MIL/MM3 (4.00-5.30); RED CELL DISTRIBUTION WIDTH 14.9 % (11.6-17.2); WHITE BLOOD COUNT 10.6 TH/MM3 (4.0-11.0)
[2017-01-12 06:26] LABS: ANION GAP 8 MEQ/L (5-15); AST (GOT) 15 U/L (15-37); BICARBONATE 22.1 MEQ/L (21.0-32.0); BLOOD UREA NITROGEN 8 MG/DL (7-18); CHLORIDE 109 MEQ/L (98-107); GLOMERULAR FILTRATION RATE 69 ML/MIN (>89); POTASSIUM 5.1 MEQ/L (3.5-5.1); SODIUM (NA) 139 MEQ/L (136-145)
[2017-01-12 06:28] LABS: ALT (GPT) 12 U/L (10-53)
[2017-01-12 06:31] LABS: ALKALINE PHOSPHATASE 46 U/L (45-117); TOTAL BILIRUBIN ADULT 0.2 MG/DL (0.2-1.0)
[2017-01-12] MEDS: INSULIN ASPART SUPPLEMENTAL SCALE SQ SCH ×4 (06:50→20:59)
[2017-01-12] MEDS ORDERED: DEXTROSE 50% IN WATER 50 ML SYRINGE ONE (06:52)
[2017-01-12] MEDS: DOCUSATE SODIUM 50 MG/SENNA 8.6 MG TAB PO SCH ×2 (09:00→20:57)
[2017-01-12] MEDS: LIPASE/PROTEASE/AMYLASE (24,000/76,000/120,000) CAP PO SCH ×3 (09:11→18:04)
[2017-01-12] MEDS: SODIUM CHLORIDE 0.9% FLUSH 10 ML FLUSH IV FLUSH SCH ×2 (09:11→20:57)
[2017-01-12] MEDS: DICYCLOMINE HCL 20 MG TAB PO SCH ×3 (09:11→18:04)
--- NOTE | 2017-01-12 09:33 | HHI.PR ---
Subjective Remarks Follow-up for right lower lobe pneumonia and ESBL UTI. Patient is currently doing well. She wants to go home. She is somewhat frustrated staying in the ICU room. Tolerating diet well. Denies any fever or chills. Objective Vitals Vital Signs Date Time Temp Pulse Resp B/P (MAP) Pulse Ox O2 Delivery O2 Flow Rate FiO2 01/12/17 06:00 58 01/12/17 04:00 61 01/12/17 04:00 97.1 61 24 106/67 (80) 98 01/12/17 02:00 75 01/12/17 01:55 95 100 01/12/17 00:00 98.8 62 29 109/72 (84) 01/12/17 00:00 62 01/11/17 22:00 66 01/11/17 20:00 98.7 68 31 90/69 (76) 94 01/11/17 20:00 68 01/11/17 19:18 98 21 01/11/17 18:00 65 01/11/17 16:00 67 01/11/17 16:00 98.3 67 27 102/69 (80) 95 01/11/17 14:00 62 01/11/17 13:48 60 103/57 01/11/17 12:00 98.4 61 22 99/56 (70) 97 01/11/17 12:00 61 01/11/17 10:00 63 I/O 01/11/17 01/11/17 01/11/17 01/12/17 01/12/17 01/12/17 07:00 15:00 23:00 07:00 15:00 23:00 Intake Total 2033 ml 100 ml 2228 ml 2168 ml Output Total 2350 ml 1300 ml 5000 ml Balance -317 ml 100 ml 928 ml -2832 ml Intake Oral 0 ml 720 ml 120 ml IV Total 2033 ml 100 ml 1508 ml 2048 ml Output Urine Total 2050 ml 1200 ml 4000 ml Stool Total 300 ml 100 ml 1000 ml Result Diagram: 01/12/17 0520 01/12/17 0520 Imaging Last Impressions Abdomen/Pelvis CT 01/08/17 0000 Signed Impressions: Service Date/Time: Sunday, January 08, 2017 01:46 - CONCLUSION: 4 mm distal right ureteral stone with moderate hydronephrosis and hydroureter. Small bilateral pleural effusions with passive atelectasis right greater than left. Zia Beauchamp MD Chest X-Ray 01/02/17 0000 Signed Impressions: Service Date/Time: Monday, January 02, 2017 16:43 - CONCLUSION: Worsening airspace process right lung. Kane Evans MD Objective Remarks GENERAL: Alert, NAD. SKIN: Warm and dry. HEAD: Normocephalic. EYES: No scleral icterus. No injection or drainage. NECK: Supple, trachea midline. No JVD or lymphadenopathy. CARDIOVASCULAR: Regular rate and rhythm without murmurs, gallops, or rubs. RESPIRATORY: Breath sounds equal bilaterally. No accessory muscle use. GASTROINTESTINAL: Abdomen soft, non-tender, nondistended. MUSCULOSKELETAL: No cyanosis, or edema. BACK: Nontender without obvious deformity. No CVA tenderness. Procedures 01/10/2017 Cystoscopy, right retrograde pyelogram and right sided intermodal dispatcher ureteral stent placement Date of Insertion: Jan 02, 2017 Date of Removal: Jan 04, 2017 A/P Assessment and Plan 72 years old female admitted with severe sepsis and pneumonia. Continue Goins catheter for approximately 2 more days before considering a void trial. Rectal tube to continue until cleared by GI. She still needs pressors somewhat stay in the ICU for now. Severe sepsis UTI with ESBL organism Right hydronephrosis Pneumonia ID following. Currently on ertapenem 1 g every 24 hours, Zosyn 4.5 g every 6 hours. Levophed was discontinued at 4 AM on 01/12/2017. Discontinue normal saline with potassium. Currently potassium is 5.1. Start normal saline at 100 cc per hour. Persistent Diarrhea Diarrhea is improved. Stool culture was negative for Cryptosporidium and Giardia Stool was also negative for C. difficile. We'll discontinue rectal tube today. Also discontinue Goins cath. - Hypokalemia - resolved. K+ is 5.1 today. Will d/c NS+KCL. Transfer patient to the floor. Full code. Heparin subcutaneous. Kimo Douglass DO Jan 12, 2017 09:33
[2017-01-12] MEDS: SODIUM CHLOR 0.9% 1000 ML INJ 1,000 ML IV SCH ×2 (11:22→20:59)
--- NOTE | 2017-01-12 16:07 | HHI.GIFU ---
Subjective Remarks Pt resting in bed. Still having diarrhea- 2 today. Pt reports that she has decided that she does NOT want to pursue colonoscopy- does not want the bowel prep. D/W patient possible evaluation with flexible sigmoidoscopy, but she is also hesitant to do this and states she will have to think it over and cannot make a decision right now. (Ana Hernandez) Objective Vitals I&O Vital Signs Date Time Temp Pulse Resp B/P (MAP) Pulse Ox O2 Delivery O2 Flow Rate FiO2 01/12/17 15:32 100 21 01/12/17 12:00 62 01/12/17 12:00 97.9 62 31 96/61 (73) 98 01/12/17 11:00 64 01/12/17 10:00 59 01/12/17 09:00 56 01/12/17 08:00 59 01/12/17 08:00 98.0 59 26 98/66 (77) 98 01/12/17 07:00 61 01/12/17 06:00 58 01/12/17 04:00 61 01/12/17 04:00 97.1 61 24 106/67 (80) 98 01/12/17 02:00 75 01/12/17 01:55 95 100 01/12/17 00:00 98.8 62 29 109/72 (84) 01/12/17 00:00 62 01/11/17 22:00 66 01/11/17 20:00 98.7 68 31 90/69 (76) 94 01/11/17 20:00 68 01/11/17 19:18 98 21 01/11/17 18:00 65 I/O 01/11/17 01/11/17 01/11/17 01/12/17 01/12/17 01/12/17 06:59 14:59 22:59 06:59 14:59 22:59 Intake Total 2033 ml 100 ml 2228 ml 2168 ml 900 ml Output Total 2350 ml 1300 ml 5000 ml Balance -317 ml 100 ml 928 ml -2832 ml 900 ml Intake Oral 0 ml 720 ml 120 ml IV Total 2033 ml 100 ml 1508 ml 2048 ml 900 ml Output Urine Total 2050 ml 1200 ml 4000 ml Stool Total 300 ml 100 ml 1000 ml Laboratory Laboratory Tests Test 01/12/17 05:20 White Blood Count 10.6 Red Blood Count 3.24 Hemoglobin 10.2 Hematocrit 29.5 Mean Corpuscular Volume 91.3 Mean Corpuscular Hemoglobin 31.4 Mean Corpuscular Hemoglobin Concent 34.5 Red Cell Distribution Width 14.9 Platelet Count 578 Mean Platelet Volume 7.5 Neutrophils (%) (Auto) 74.1 Lymphocytes (%) (Auto) 17.5 Monocytes (%) (Auto) 4.6 Eosinophils (%) (Auto) 3.0 Basophils (%) (Auto) 0.8 Neutrophils # (Auto) 7.9 Lymphocytes # (Auto) 1.9 Monocytes # (Auto) 0.5 Eosinophils # (Auto) 0.3 Basophils # (Auto) 0.1 CBC Comment DIFF FINAL Differential Comment Blood Urea Nitrogen 8 Creatinine 0.82 Random Glucose 66 Total Protein 5.9 Albumin 1.8 Calcium Level 8.5 Alkaline Phosphatase 46 Aspartate Amino Transf (AST/SGOT) 15 Alanine Aminotransferase (ALT/SGPT) 12 Total Bilirubin 0.2 Sodium Level 139 Potassium Level 5.1 Chloride Level 109 Carbon Dioxide Level 22.1 Anion Gap 8 Estimat Glomerular Filtration Rate 69 Date/Time Source Procedure Growth Status 01/08/17 03:18 Blood Peripheral Aerobic Blood Culture - Preliminary NO GROWTH IN 4 DAYS Resulted 01/08/17 03:18 Blood Peripheral Anaerobic Blood Culture - Preliminary NO GROWTH IN 4 DAYS Resulted 01/09/17 08:30 Stool Stool Cryptosporidium Exam - Final NEGATIVE - NO CRYPTOSPORIDIUM ANTIGEN... Complete 01/09/17 08:30 Stool Stool Stool Pus ([facility]) - Final NO WBC'S SEEN Complete 01/09/17 08:30 Stool Stool Giardia Antigen ([facility]) - Final NEGATIVE - NO GIARDIA ANTIGEN DETECTE... Complete 01/04/17 16:50 Nasal Washing Influenza Types A,B Antigen ([facility]) - Final NEGATIVE FOR FLU A AND B ANTIGEN.... Complete 01/07/17 16:00 Urine Catheterized Urine Urine Culture - Final NO GROWTH IN 48 HOURS. Complete Imaging Last Impressions Abdomen/Pelvis CT 01/08/17 0000 Signed Impressions: Service Date/Time: Sunday, January 08, 2017 01:46 - CONCLUSION: 4 mm distal right ureteral stone with moderate hydronephrosis and hydroureter. Small bilateral pleural effusions with passive atelectasis right greater than left. Zia Beauchamp MD Chest X-Ray 01/02/17 0000 Signed Impressions: Service Date/Time: Monday, January 02, 2017 16:43 - CONCLUSION: Worsening airspace process right lung. Kane Evans MD Physical Exam HEENT: Normocephalic; atraumatic; no jaundice. CHEST: CTA CARDIAC: RRR. ABDOMEN: Soft, nondistended, mild lower abdominal tenderness; no hepatosplenomegaly; bowel sounds are present in all four quadrants. EXTREMITIES: No clubbing, cyanosis, or edema. SKIN: Normal; no rash; no jaundice. 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 (Ana Hernandez [facility]) Assessment and Plan Plan ASSESSMENT: - Chronic diarrhea. Pt reports long history of chronic diarrhea, usually 3-4 bowel movements per day. Does report a history of RA and a hx of colitis in the past, but does not know if this was infectious vs. inflammatory vs. nonspecific. CDifficile PCR negative. Stool studies unremarkable. CT scan abdomen and pelvis without contrast (01/08/17)---> 4 mm distal right ureteral stone with moderate hydronephrosis and hydroureter. Small bilateral pleural effusions with passive atelectasis right greater than left. Last colonoscopy was several years ago- does not know when or the findings. Fhx of colon cancer in maternal uncle. Pt continues to have diarrhea. D/W patient unremarkable stool studies, noncontrasted ct, and recommendation for colonoscopy. She is refusing. Also discussed possible evaluation with flexible sigmoidoscopy, but she is also hesitant to do this and states she will have to think it over and cannot make a decision today. She was started on creon/dicyclomine and has improved, but is still some diarrhea- 2 loose stools so far today. - Sepsis, RLL pneumonia and UTI with ESBL, (+) Klebsiella pneumoniae. Abx per attending. - Leukocytosis. Abx as above. WBC 10.6 - Anemia. 10.2/29.5. PLAN: - TAMMIE - Cont. Dicyclomine - Abx per ID - Monitor labs - Recommend colonoscopy- pt refusing. Will consider flexible sigmoidoscopy, but states she will have to think this over and cannot make a decision now - Pt seen and examined by Dr. Bob and myself and this note is written on his behalf (Ana Hernandez) Physician Comments Seen and examined. Plan as above. further recommendation to follow. Will follow up with you periodically. (Lilliana Bob MD) Ana Hernandez Jan 12, 2017 16:07 Lilliana Bob MD Jan 12, 2017 17:13
[2017-01-12] MEDS: ERTAPENEM INJ 1,000 MG in SODIUM CHLORIDE 0.9% INJ 100 ML IV SCH (20:57)
[2017-01-13] VITALS: BP 94/50; PULSE 59; RESP 16; TEMP 98.3; O2SAT 95
[2017-01-13] MEDS: PIPERACIL-TAZO 4.5 GM PREMIX 100 ML IV SCH ×2 (00:04→05:29)
[2017-01-13] MEDS: CHLORHEXIDINE GLUCONATE 2 % 1 PACK (2 CLOTHS) TOP SCH (03:46)
[2017-01-13 04:00] VITALS: BP 108/58; PULSE 64; RESP 18; TEMP 98.5; O2SAT 95
[2017-01-13] MEDS: HEPARIN SODIUM - SQ 10,000 UNITS/ML VIAL SQ SCH (05:29)
[2017-01-13] MEDS: INSULIN ASPART SUPPLEMENTAL SCALE SQ SCH ×2 (05:31→11:00)
[2017-01-13] MEDS: SODIUM CHLOR 0.9% 1000 ML INJ 1,000 ML IV SCH (05:31)
[2017-01-13 08:00] VITALS: BP_SYST 106; BP_SYST 135; BP_DIAS 62; BP_DIAS 88; PULSE 59; PULSE 65; RESP 16; RESP 18; TEMP 98.2; O2SAT 96; O2SAT 98
[2017-01-13] MEDS: DICYCLOMINE HCL 20 MG TAB PO SCH ×2 (08:12→13:38)
[2017-01-13] MEDS: DOCUSATE SODIUM 50 MG/SENNA 8.6 MG TAB PO SCH (08:13)
[2017-01-13] MEDS: SODIUM CHLORIDE 0.9% FLUSH 10 ML FLUSH IV FLUSH SCH (08:13)
[2017-01-13] MEDS: LIPASE/PROTEASE/AMYLASE (24,000/76,000/120,000) CAP PO SCH ×2 (08:13→13:38)
--- NOTE | 2017-01-13 11:47 | HHI.DS ---
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 The patient was noted to have malaise and a poor appetite. In the ED vital signs were obtained the patient's systolic blood pressure was noted to be in the 70s. Imaging studies noted a right lower lobe consolidation. The patient had laboratory values revealing WBC count of 22 with a lactic acid of 3.4. In the ED the patient was bolused with 3 L of normal saline and given empiric antibiotics Rocephin and azithromycin, a central line was placed and the patient was started on norepinephrine. Critical care medicine was consulted for management. Upon arrival to the ED the patient was noted have a BP of 112/79 currently on 10 mcgs of norepinephrine, awake alert oriented in no respiratory distress. History PFSH Past Medical History Arthritis: Yes (IC arthritis) Asthma: No Autoimmune Disease: No Anxiety: Yes Depression: No Heart Rhythm Problems: No Cancer: No Cardiovascular Problems: Yes (hyperlipemia) High Cholesterol: No COPD: No Cerebrovascular Accident: No Diabetes: No Endocrine: No GERD: No Genitourinary: No Hepatitis: No Hiatal Hernia: No Hypertension: Yes Immune Disorder: No Kidney Stones: No Musculoskeletal: Yes (degenerative disc disease and spinal stenosis) Neurologic: No Psychiatric: Yes (CLAUSTROPHOBIC) Reproductive: No Respiratory: No Immunizations Current: Yes Migraines: No Pancreatitis: Yes Renal Failure: No Seizures: No Sleep Apnea: No Thyroid Disease: No Ulcer: No Menopausal: Yes Past Surgical History Abdominal Surgery: No AICD: No Appendectomy: Yes Body Medical Devices: SCREWS IN R SHOULDER -- REMOVED Cardiac Surgery: No Cholecystectomy: Yes Ear Surgery: No Endocrine Surgery: No Eye Surgery: No Genitourinary Surgery: No Gynecologic Surgery: No Joint Replacement: No Oral Surgery: No Pacemaker: No Thoracic Surgery: No Tonsillectomy: Yes Other Surgery: Yes (03/30 L3-L4 and L4-L5 zoltan--LAMINECTOMY and L4-L5 fusion) Social History Alcohol Use: Yes (ONE DRINK A DAY) Tobacco Use: Yes (05/17 PPD) Substance Use: No Allergies-Medications Allergies-Medications (Allergen,Severity, Reaction): Coded Allergies: No Known Allergies (Verified , 05/29/14) Reported Meds & Prescriptions Reported Meds & Active Scripts Active Percocet (Oxycodone/Acetaminophen) 5 Mg/325 Mg Tab 1 Tab PO Q6 PRN Budesonide 3 Mg/24 Hr Cap 3 Mg PO DAILY 30 Days Nortriptyline Hcl (Nortriptyline HCl) 25 Mg Cap 25 Mg PO HS 30 Days Tricor (Fenofibrate) 145 Mg Tab 145 Mg PO DAILY 30 Days Reported Drisdol (Ergocalciferol) 50,000 Unt Cap 1 PO WEEKLY ROS Review of Systems Except as stated in HPI: all other systems reviewed are Neg HENT: No: Headaches, Lightheadedness Cardiovascular: No: Chest Pain or Discomfort Respiratory: Positive: Cough, No: Shortness of Breath Gastrointestinal: Positive: Diarrhea, No: Nausea, Vomiting, Abdominal Pain Genitourinary: No: Dysuria Musculoskeletal: Positive: Weakness, Pain, No: Myalgias Skin: No Rash, No Change in Pigmentation Neurologic: Positive: Weakness CBC/BMP: 01/12/17 0520 01/12/17 0520 Significant Findings Laboratory Tests Test 01/11/17 03:50 01/12/17 05:20 White Blood Count 11.6 TH/MM3 (4.0-11.0) Red Blood Count 3.29 MIL/MM3 (4.00-5.30) 3.24 MIL/MM3 (4.00-5.30) Hemoglobin 9.6 GM/DL (11.6-15.3) 10.2 GM/DL (11.6-15.3) Hematocrit 29.9 % (35.0-46.0) 29.5 % (35.0-46.0) Platelet Count 635 TH/MM3 (150-450) 578 TH/MM3 (150-450) Neutrophils (%) (Auto) 80.0 % (16.0-70.0) 74.1 % (16.0-70.0) Neutrophils # (Auto) 9.3 TH/MM3 (1.8-7.7) 7.9 TH/MM3 (1.8-7.7) Total Protein 5.9 GM/DL (6.4-8.2) 5.9 GM/DL (6.4-8.2) Albumin 1.7 GM/DL (3.4-5.0) 1.8 GM/DL (3.4-5.0) Calcium Level 8.0 MG/DL (8.5-10.1) Aspartate Amino Transf (AST/SGOT) 13 U/L (15-37) Chloride Level 109 MEQ/L (98-107) 109 MEQ/L (98-107) Estimat Glomerular Filtration Rate 63 ML/MIN (>89) 69 ML/MIN (>89) Random Glucose 66 MG/DL (74-106) Imaging Last Impressions Abdomen/Pelvis CT 01/08/17 0000 Signed Impressions: Service Date/Time: Sunday, January 08, 2017 01:46 - CONCLUSION: 4 mm distal right ureteral stone with moderate hydronephrosis and hydroureter. Small bilateral pleural effusions with passive atelectasis right greater than left. Zia Beauchamp MD Chest X-Ray 01/02/17 0000 Signed Impressions: Service Date/Time: Monday, January 02, 2017 16:43 - CONCLUSION: Worsening airspace process right lung. Kane Evans MD PE at Discharge GENERAL: Alert, NAD. SKIN: Warm and dry. HEAD: Normocephalic. EYES: No scleral icterus. No injection or drainage. NECK: Supple, trachea midline. No JVD or lymphadenopathy. CARDIOVASCULAR: Regular rate and rhythm without murmurs, gallops, or rubs. RESPIRATORY: Breath sounds equal bilaterally. No accessory muscle use. GASTROINTESTINAL: Abdomen soft, non-tender, nondistended. MUSCULOSKELETAL: No cyanosis, or edema. BACK: Nontender without obvious deformity. No CVA tenderness. Pt update on day of discharge Patient is doing well. She feels somewhat week. No fever, chills. Tolerating diet well. Hospital Course 72 years old female admitted with severe sepsis and pneumonia. She was found to have ESBL UTI as well. Severe sepsis UTI with ESBL organism Right hydronephrosis Pneumonia ID following. Currently on ertapenem 1 g every 24 hours. In the hospital, patient also received Azithromycin and Zosyn. Levophed was discontinued at 4 AM on 01/12/2017. Discontinued NS+KCL. Continued NS. Discussed with ID on 01/13/2017. We will continue Ertapenem until 01/17/2017. No other abx needed. Persistent Diarrhea Diarrhea is improved. Stool culture was negative for Cryptosporidium and Giardia Stool was also negative for C. difficile. - Hypokalemia - resolved. Potassium was 5.1 yesterday. We discontinued NS+ KCL. Discussed with Isai RN (Karlene). Patient can be discharged to [facility] inpatient rehab today. Pt Condition on Discharge: Good Discharge Disposition: Rehab Inpatient Discharge Time: > 30 minutes Discharge Instructions DIET: Follow Instructions for: Heart Healthy Diet Speech Therapy-Diet Recommends: Regular Activities you can perform: Regular-No Restrictions New Medications: Ertapenem Inj (Invanz Inj) 1 Gm Addvial 1 GM IV Q24H for Infection for 4 Days, INJECTION 0 Refills ADMINISTER IN 100ML NS Dicyclomine (Dicyclomine) 20 Mg Tab 20 MG PO TID for Abdominal pain, #90 TAB Pancrelipase (Creon) 24,000-76,000-120,000 Units Cap 1 CAP PO TID for pancreas, #90 CAP Continued Medications: Ergocalciferol (Drisdol) 50,000 Unt Cap 1 PO WEEKLY Fenofibrate (Tricor) 145 Mg Tab 145 MG PO DAILY for 30 Days, NO REFILLS Refills Nortriptyline Hcl (Nortriptyline Hcl) 25 Mg Cap 25 MG PO HS for 30 Days, CAP NO REFILLS Refills Oxycodone/Acetaminophen (Percocet) 5 Mg/325 Mg Tab 1 TAB PO Q6 PRN, #30 NO REFILLS Refills Discontinued Medications: Budesonide (Budesonide) 3 Mg/24 Hr Cap 3 MG PO DAILY for 30 Days, CAP NO REFILLS Refills Kimo Douglass DO Jan 13, 2017 11:47
[2017-01-13 12:00] VITALS: BP_SYST 92; BP_SYST 96; BP_DIAS 51; BP_DIAS 59; PULSE 61; PULSE 62; RESP 16; RESP 18; TEMP 98.1; TEMP 98.3; O2SAT 100; O2SAT 96
[2017-01-13] MEDS ORDERED: INVA1INJ IV (12:04)
[2017-01-13] MEDS ORDERED: CREON24 PO (12:07)
[2017-01-13] MEDS ORDERED: DICY20TA10 PO (12:07)
[2017-01-13] MEDS ORDERED: ERGO1CAP30 PO (16:52)
[2017-01-13] MEDS ORDERED: FENO50TA PO (16:52)
[2017-01-13] MEDS ORDERED: NORT25CA PO (16:52)
[2017-01-13] MEDS ORDERED: PERC5TAB12 PO (16:52)
[2017-01-17] MEDS ORDERED: CHOL4POW4 PO (13:32)
[2017-01-17] MEDS ORDERED: SODI1TAB PO (13:32)
[2017-01-17] MEDS ORDERED: THERTAB15 PO (13:32)
[2017-01-17] MEDS ORDERED: HEPA10003 SQ (13:32)
[2017-01-17] MEDS ORDERED: IPRASOL NEB (13:32)
[2017-01-28] MEDS ORDERED: QUET1TAB7 PO (14:36)
[2017-01-28] MEDS ORDERED: FENO50TA PO (14:36)
[2017-01-28] MEDS ORDERED: CREON24 PO (14:36)
[2017-01-28] MEDS ORDERED: ERGO1CAP30 PO (14:36)
[2017-01-28] MEDS ORDERED: DICY20TA10 PO (14:36)
[2017-02-24] MEDS ORDERED: TEMA15CA (11:11)
== END 2017-01-13 15:23 | DRG 871 ==
LOC: NEPC 12:03 → NEDA 16:03 → HIMW 17:45 → N04A 01-12 19:02
PROVIDERS: ADMIT Hospitalist; ATTEND Hospitalist
PROC: 02HV33Z Insertion of Infusion Device into Superior Vena Cava, Percutaneous Approach (ICD-10-PCS; principal; 2017-01-02)
PROC: 0T768DZ Dilation of Right Ureter with Intraluminal Device, Via Natural or Artificial Opening Endoscopic (ICD-10-PCS; 2017-01-10)
PROC: BT1D1ZZ Fluoroscopy of Right Kidney, Ureter and Bladder using Low Osmolar Contrast (ICD-10-PCS; 2017-01-10)
DX: A41.51 Sepsis due to Escherichia coli [E. coli] (principal); R65.21 Severe sepsis with septic shock; E87.2 Acidosis; J44.0 Chronic obstructive pulmonary disease with (acute) lower respiratory infection; J18.9 Pneumonia, unspecified organism; Z68.1 Body mass index [BMI] 19.9 or less, adult; J98.11 Atelectasis; N13.6 Pyonephrosis; E87.6 Hypokalemia; E83.39 Other disorders of phosphorus metabolism; A41.4 Sepsis due to anaerobes; D64.9 Anemia, unspecified; E78.5 Hyperlipidemia, unspecified; I10 Essential (primary) hypertension; R63.4 Abnormal weight loss; M06.9 Rheumatoid arthritis, unspecified; K58.9 Irritable bowel syndrome, unspecified; F40.240 Claustrophobia; F41.9 Anxiety disorder, unspecified; F17.210 Nicotine dependence, cigarettes, uncomplicated; Z16.12 Extended spectrum beta lactamase (ESBL) resistance; Z53.29 Procedure and treatment not carried out because of patient's decision for other reasons; Z80.0 Family history of malignant neoplasm of digestive organs; Z98.1 Arthrodesis status
CPT/HCPCS: 31500; 36430; 36556; 71010; 74176; 74420; 80048; 80053; 81001; 82728; 82948; 83540; 83605; 83735; 84100; 84132; 84145; 84484; 85025; 85027; 85610; 85730; 86850; 86900; 86901; 86920; 87040; 87077; 87086; 87186; 87205; 87328; 87329; 87449; 87493; 87506; 87641; 87804; 94150; 94640; 94664; 96361; 96365; 96368; C1769; J0456; J0696; J1335; J1644; J1815; J2405; J2543; J3370; J3480; J7030; J7040; J7050; P9016; P9045; Q9967

== ENCOUNTER 2017-03-09 09:57 | Inpatient (IN) | payer MEDICARE, BC ==
[2017-03-09] VITALS (7 sets, daily range): BP systolic 128–153; BP diastolic 60–84; PULSE 50–56; RESP 16–20; TEMP 96.4–97.9; O2SAT 96–99
[~2017-03-09] VITALS: Ht 162.6 cm; Wt 52.8 kg
[~2017-03-09 09:57] MED LIST changes: -BUDE3CAP PO; +CHOL4POW4 PO; +CREON24 PO; +DICY20TA10 PO; -DRIS50002 PO; +ERGO1CAP30 PO; +HEPA10003 SQ; +IPRASOL NEB; -NORT25CA PO; -OXYC-360 PO; +QUET1TAB7 PO; +TEMA15CA; +THERTAB15 PO
[2017-03-09] MEDS ORDERED: ACETAMINOPHEN/HYDROcodone 325 MG/10 MG TAB PO PRN ×3 (10:15→16:30)
[2017-03-09] MEDS ORDERED: MORPHINE SULFATE 4 MG/ML INJ IV PUSH PRN ×2 (10:15→16:30)
[2017-03-09] MEDS ORDERED: ACETAMINOPHEN 325 MG TAB PO PRN ×2 (10:15→16:30)
[2017-03-09] MEDS ORDERED: RESP: ALBUTEROL 2.5 MG/3 ML NEB (PRN) NEB ×2 (10:15→16:30)
[2017-03-09] MEDS ORDERED: SODIUM CHLORIDE 0.9% FLUSH 5 ML FLUSH IVF PRN ×2 (10:15→16:30)
[2017-03-09] MEDS ORDERED: cloNIDine HCL 0.1 MG TAB PO PRN (10:15)
[2017-03-09] MEDS ORDERED: ONDANSETRON HCL 4 MG/2 ML VIAL IV PUSH PRN (10:15)
[2017-03-09] MEDS ORDERED: SODIUM CHLORIDE 0.9% FLUSH 5 ML FLUSH IVF SCH (10:15)
--- NOTE | 2017-03-09 10:36 | HHI.HP ---
[facility] Primary Care Physician Hi Vidal MD History of Present Illness Ms. Esparza is a 72 year old female who presents today for placement of lumbar drain for suspected Normal Pressure Hydrocephalus. Ms. Esparza initially underwent neurosurgical evaluation while she was at at [facility] rehabilitation on 01/19/17 following her discharge from [facility] for treatment of Sepsis. Neurosurgery was asked to evaluate for hydrocephalus found on her CT Head while at [facility]. A CT Head was obtained as the patient was noted to be confused and had a fall. I had previously spoken with her daughter on the phone who is from [place] of state and notes the patient has had history of progressive memory loss, gait instability and urine incontinence. A lumbar drain was not placed at that time until her infection cleared. She was followed in the office. Her symptoms has been getting worse. She has been mostly wheelchair bound. Review of Systems Constitutional: COMPLAINS OF: Fatigue, DENIES: Fever, Chills Eyes: DENIES: Vision loss Respiratory: DENIES: Wheezing, Sputum production, Shortness of breath Cardiovascular: DENIES: Chest pain Gastrointestinal: DENIES: Abdominal pain, Nausea, Vomiting Genitourinary: COMPLAINS OF: Urinary incontinence Neurologic: COMPLAINS OF: Abnormal gait, Poor Balance, DENIES: Headache, Seizures Psychiatric: DENIES: Hallucinations Past Family Social History Allergies: Coded Allergies: No Known Allergies (Verified , 03/09/17) Past Medical History 1. History of urinary tract infection. 2. Uretal stent placement. 3. Degenerative arthritis. 4. Hyperlipidemia. 5. Hypertension. 6. Anxiety disorder. Past Surgical History Appendectomy Shoulder surgery Cholecystectomy Lumbar laminectomy and fusion Reported Medications reviewed in EMR Active Ordered Medications Current Medications Medications (Trade) Dose Ordered Sig/Wan Route PRN Reason Start Time Stop Time Status Last Admin Dose Admin IV Flush (NS Flush) 2 ml UNSCH PRN IVF FLUSH AFTER USING IV ACCESS 03/09/17 10:15 UNV IV Flush (NS Flush) 2 ml BID IVF 03/09/17 10:15 UNV Docusate Sodium (Colace) 100 mg BID PO 03/09/17 21:00 UNV Pantoprazole Sodium (Protonix) 40 mg DAILY PO 03/10/17 09:00 UNV Ondansetron HCl (Zofran Inj) 4 mg Q6H PRN IV PUSH NAUSEA OR VOMITING 03/09/17 10:15 UNV Acetaminophen/ Hydrocodone Bitart ([place] 10-325 Mg) 1 tab Q4H PRN PO PAIN SCALE 1 TO 5 03/09/17 10:15 UNV Acetaminophen/ Hydrocodone Bitart ([place] 10-325 Mg) 2 tab Q4H PRN PO PAIN SCALE 6 TO 10 03/09/17 10:15 UNV Morphine Sulfate (Morphine Inj) 2 mg Q2H PRN IV PUSH breakthrough pain 03/09/17 10:15 UNV Clonidine (Catapres) 0.1 mg Q6H PRN PO SYS BP GREATER THAN 170 MMHG 03/09/17 10:15 UNV Acetaminophen (Tylenol) 650 mg Q4H PRN PO TEMPERATURE > 101.5 F 03/09/17 10:15 UNV Zolpidem Tartrate (Ambien) 5 mg HS PRN PO INSOMNIA 03/09/17 10:15 UNV Albuterol Sulfate (Albuterol Neb) 2.5 mg Q4HR NEB PRN NEB WHEEZING 03/09/17 10:15 UNV Family History reviewed, and no history of hydrocephalus or brain tumors in family Social History No etoh currently, per EMR pt has one alcoholic drink a day and smoked 1/2 PPD. No illicit drugs. Lives with her significant other. Physical Exam Vital Signs Vital Signs Date Time Temp Pulse Resp B/P (MAP) Pulse Ox O2 Delivery O2 Flow Rate FiO2 03/09/17 10:23 96.4 50 20 153/84 (107) 98 Physical Exam Ms. Esparza is alert. Speech is fluent. No acute distress. Follows commands well. Cranial nerve examination demonstrates the pupils to be equal, round, and reactive to light. Extra-ocular movements are intact. Facial motor are normal and symmetrical. Neck is soft and supple. Motor: moves all four extremities well and symmetrically Sensory examination is intact to light touch in both the upper and lower extremities, symmetrically. Deep tendon reflexes are 1+ and symmetrical in upper and lower extremities. Cerebellar examination is intact to [id number] test. Abdomen: soft, nontender Respiratory: clear Heart: NSR Gait: exam in office had moderate difficulty with sit to stand, had two man assist, took very short steps, shuffling. Caprini VTE Risk Assessment Caprini VTE Risk Assessment: Mod/High Risk (score >= 2) (lumbar drain placement ) VTE Pharm Contraindication: Epidural catheter Caprini Risk Assessment Model Point Value = 1 Point Value = 2 Point Value = 3 Point Value = 5 Age 41-60 Minor surgery BMI > 25 kg/m2 Swollen legs Varicose veins or History of unexplained or recurrent spontaneous Oral contraceptives or hormone replacement Sepsis (< 1 month) Serious lung disease, including pneumonia (< 1 month) Abnormal pulmonary function Acute myocardial infarction Congestive heart failure (< 1 month) History of inflammatory bowel disease Medical patient at bed rest Age 61-74 Arthroscopic surgery Major open surgery (> 45 min) Laparoscopic surgery (> 45 min) Malignancy Confined to bed (> 72 hours) Immobilizing plaster cast Central venous access Age >= 75 History of VTE Family history of VTE Factor V Leiden Prothrombin [id number] Lupus anticoagulant Anticardiolipin antibodies Elevated serum homocysteine Heparin-induced thrombocytopenia Other congenital or acquired thrombophilia Stroke (< 1 month) Elective arthroplasty Hip, pelvis, or leg fracture Acute spinal cord injury (< 1 month) Prophylaxis Regimen Total Risk Factor Score Risk Level Prophylaxis Regimen 0-1 Low Early ambulation 2 Moderate Order ONE of the following: *Sequential Compression Device (SCD) *Heparin 5000 units SQ BID 3-4 Higher Order ONE of the following medications: *Heparin 5000 units SQ TID *Enoxaparin/Lovenox 40 mg SQ daily (WT < 150 kg, CrCl > 30 mL/min) *Enoxaparin/Lovenox 30 mg SQ daily (WT < 150 kg, CrCl > 10-29 mL/min) *Enoxaparin/Lovenox 30 mg SQ BID (WT < 150 kg, CrCl > 30 mL/min) AND/OR *Sequential Compression Device (SCD) 5 or more Highest Order ONE of the following medications: *Heparin 5000 units SQ TID (Preferred with Epidurals) *Enoxaparin/Lovenox 40 mg SQ daily (WT < 150 kg, CrCl > 30 mL/min) *Enoxaparin/Lovenox 30 mg SQ daily (WT < 150 kg, CrCl > 10-29 mL/min) *Enoxaparin/Lovenox 30 mg SQ BID (WT < 150 kg, CrCl > 30 mL/min) AND *Sequential Compression Device (SCD) Assessment and Plan Assessment and Plan Ms. Esparza is a 72 year old female with suspected Normal Pressure Hydrocephalus presents today for placement of lumbar drain with CSF drainage. She will be undergoing lumbar drain placement. Drain CSF per protocol. PT evaluation of gait prior and after placement of drain. Neuro checks in a serial fashion. Nutrition. NPO for now, will start oral diet following placement of lumbar drain Endocrine. Monitor serial Acu checks and SSI as needed in detail Protonix for stress ulcer prophylaxis Tee alexandra and SCD's for DVT prophylaxis. Medical management consulted for medical assistance Neurology consulted for Neurological evaluation of suspected NPH Tamie Allred Mar 09, 2017 10:36
[2017-03-09] MEDS ORDERED: RESP: ALBUTEROL 2.5 MG/IPRATROPIUM 0.5 MG NEB (SCH) NEB PRN (10:45)
[2017-03-09] MEDS ORDERED: ceFAZolin 2 GM PREMIX 50 ML IV SCH (11:00)
[2017-03-09 11:39] LABS: AUTOMATED NEUTROPHIL # 4.6 TH/MM3 (1.8-7.7); BASOPHIL # 0.1 TH/MM3 (0-0.2); BASOPHIL % 1.3 % (0.0-2.0); EOSINOPHIL # 0.4 TH/MM3 (0-0.4); EOSINOPHIL % 5.6 % (0.0-4.0); HEMATOCRIT 37.5 % (35.0-46.0); HEMO FLAGS DIFF FINAL; LYMPH % 22.1 % (9.0-44.0); LYMPHOCYTE # 1.6 TH/MM3 (1.0-4.8); MEAN CELL VOLUME 91.3 FL (80.0-100.0); MEAN CORPUSCULAR HGB CONC 33.9 % (32.0-36.0); MONO % 5.6 % (0.0-8.0); NEUT % 65.4 % (16.0-70.0); PLATELET COUNT 414 TH/MM3 (150-450); RED BLOOD COUNT 4.11 MIL/MM3 (4.00-5.30); RED CELL DISTRIBUTION WIDTH 15.4 % (11.6-17.2); WHITE BLOOD COUNT 7.1 TH/MM3 (4.0-11.0)
[2017-03-09] MEDS ORDERED: DEXTROSE 50% IN WATER 50 ML VIAL(D50) IV PUSH PRN (11:45)
[2017-03-09] MEDS ORDERED: GLUCAGON 1 MG/ML VIAL OTHER PRN (11:45)
[2017-03-09 11:47] LABS: APTT (PATIENT) 27.8 SEC (24.3-30.1); INTERNATIONAL NORMALIZED RATIO 0.9 RATIO; PROTHROMBIN TIME - PATIENT 10.4 SEC (9.8-11.6)
[2017-03-09 11:52] LABS: BICARBONATE 24.8 MEQ/L (21.0-32.0); POTASSIUM 3.5 MEQ/L (3.5-5.1)
[2017-03-09] MEDS ORDERED: ERGOCALCIFEROL (VIT D2) 50,000 UNIT CAP PO SCH (12:00)
[2017-03-09] MEDS: DICYCLOMINE HCL 20 MG TAB PO SCH ×2 (13:00→17:58)
[2017-03-09] MEDS: LIPASE/PROTEASE/AMYLASE (24,000/76,000/120,000) CAP PO SCH ×2 (13:00→17:58)
[2017-03-09] MEDS ORDERED: MIDAZOLAM HCL 2 MG/2 ML VIAL ONE (14:09)
[2017-03-09] MEDS: SODIUM CHLOR 0.45% 1000 ML IV SCH (14:13)
--- NOTE | 2017-03-09 15:25 | PD.CONS ---
[facility] By Dr Gomez Primary Care Physician Hi Vidal MD Diagnoses: History of Present Illness Patient is a 72-year-old female with history of hypertension, DHE who has been presenting with frequent falls, confusion with progressive memory loss. On evaluation as an outpatient showed normal pressure hydrocephalus and patient was admitted here for lumbar drain placement. Patient states ambulates with a walker baseline. [facility] consulted for medical management. Patient's primary care is up to [facility]. Patient is at present is seen post procedure is awake alert with no complaints. Very interactive and pleasant. Currently denies any headache pain nausea vomiting. Review of Systems Constitutional: DENIES: Diaphoretic episodes, Fatigue, Fever, Weight gain, Weight loss, Chills, Dizziness, Change in appetite, Night Sweats Endocrine: DENIES: Abnorml menstrual pattern, Heat/cold intolerance, Polydipsia , Polyuria, Polyphagia Eyes: DENIES: Blurred vision, Diplopia, Eye inflammation, Eye pain, Vision loss , Photosensitivity, Double Vision Ears, nose, mouth, throat: DENIES: Tinnitus, Hearing loss, Vertigo, Nasal discharge, Oral lesions, Throat pain, Hoarseness, Ear Pain, Running Nose, Epistaxis, Sinus Pain, Toothache, Odynophagia Respiratory: DENIES: Apneas, Cough, Snoring, Wheezing, Hemoptysis, Sputum production, Shortness of breath Cardiovascular: DENIES: Chest pain, Palpitations, Syncope, Dyspnea on Exertion , PND, Lower Extremity Edema, Orthopnea, Claudication Gastrointestinal: DENIES: Abdominal pain, Black stools, Bloody stools, Constipation, Diarrhea, Nausea, Vomiting, Difficulty Swallowing, Anorexia Genitourinary: DENIES: Abnormal vaginal bleeding, Dysmenorrhea, Dyspareunia, Sexual dysfunction, Urinary frequency, Urinary incontinence, Urgency, Hematuria , Dysuria, Nocturia, Vaginal discharge Musculoskeletal: DENIES: Joint pain, Muscle aches, Stiffness, Joint Swelling, Back pain, Neck pain Integumentary: DENIES: Abnormal pigmentation, Pruritus, Rash, Nail changes, Breast masses, Breast skin changes, Nipple discharge Hematologic/lymphatic: DENIES: Bruising, Lymphadenopathy Immunologic/allergic: DENIES: Eczema, Urticaria Neurologic: COMPLAINS OF: Abnormal gait (has been ambulating with a walker frequent falls recently) Psychiatric: DENIES: Anxiety, Confusion, Mood changes, Depression, Hallucinations, Agitation, Suicidal Ideation, Homicidal Ideation, Delusions Past Family Social History Allergies: Coded Allergies: No Known Allergies (Verified , 03/09/17) Past Medical History Hypertension Degenerative joint disease Hyperlipidemia anxiety disorder History of sepsis secondary to UTI Past Surgical History Appendectomy Right shoulder surgery Cholecystectomy Lumbar laminectomy with fusion surgery in the past History of ureteral stent placement Reported Medications Protonix Tri-Chlor Multivitamin Colace Ambien Seroquel Cholestyramine Pancrelipase Vitamin D Benadryl Active Ordered Medications See EMR Family History Noncontributory Social History Patient still actively smokes a pack a A drink of black velvet with water every night Physical Exam Vital Signs Vital Signs Date Time Temp Pulse Resp B/P (MAP) Pulse Ox O2 Delivery O2 Flow Rate FiO2 03/09/17 11:17 95 Room Air 03/09/17 10:23 96.4 50 20 153/84 (107) 98 03/09/17 10:23 96.4 50 20 153/84 (107) 98 Physical Exam GENERAL: This is a well-nourished, well-developed patient, in no apparent distress. Oriented to person and place not sure about a year now. SKIN: No rashes, ecchymoses or lesions. Cool and dry. HEAD: Atraumatic. Normocephalic. No temporal or scalp tenderness. EYES: Pupils equal round and reactive. Extraocular motions intact. No scleral icterus. No injection or drainage. ENT: Nose without bleeding, purulent drainage or septal hematoma. Throat without erythema, tonsillar hypertrophy or exudate. Uvula midline. Airway patent. NECK: Trachea midline. No JVD or lymphadenopathy. Supple, CARDIOVASCULAR: Regular rate and rhythm without murmurs, gallops, or rubs. RESPIRATORY: Clear to auscultation. Breath sounds equal bilaterally. No wheezes , rales, or rhonchi. GASTROINTESTINAL: Abdomen soft, non-tender,. No guarding. MUSCULOSKELETAL: Extremities without clubbing, cyanosis, or edema. No joint tenderness, effusion, or edema noted. No calf tenderness. Negative Homans sign bilaterally. NEUROLOGICAL: Awake and alert. Speech clear and coherent. Cranial nerves II through XII intact. Motor and sensory grossly within normal limits. Five out of 5 muscle strength in all muscle groups. Normal speech. Gait testing deferred Laboratory Laboratory Tests Test 03/09/17 10:50 10/25/17 14:22 White Blood Count 7.1 Red Blood Count 4.11 Hemoglobin 12.7 Hematocrit 37.5 Mean Corpuscular Volume 91.3 Mean Corpuscular Hemoglobin 31.0 Mean Corpuscular Hemoglobin Concent 33.9 Red Cell Distribution Width 15.4 Platelet Count 414 Mean Platelet Volume 7.7 Neutrophils (%) (Auto) 65.4 Lymphocytes (%) (Auto) 22.1 Monocytes (%) (Auto) 5.6 Eosinophils (%) (Auto) 5.6 Basophils (%) (Auto) 1.3 Neutrophils # (Auto) 4.6 Lymphocytes # (Auto) 1.6 Monocytes # (Auto) 0.4 Eosinophils # (Auto) 0.4 Basophils # (Auto) 0.1 CBC Comment DIFF FINAL Differential Comment Prothrombin Time 10.4 Prothromb Time International Ratio 0.9 Activated Partial Thromboplast Time 27.8 Blood Urea Nitrogen 16 Creatinine 1.00 Random Glucose 88 Calcium Level 9.0 Sodium Level 141 Potassium Level 3.5 Chloride Level 107 Carbon Dioxide Level 24.8 Anion Gap 9 Estimat Glomerular Filtration Rate 55 Date/Time Source Procedure Growth Status 03/09/17 14:22 Cerebral Spinal Fluid Lumbar Puncture Gram Stain Pending Received 03/09/17 14:22 Cerebral Spinal Fluid Lumbar Puncture CSF Culture Pending Received Result Diagram: 03/09/17 1050 03/09/17 1050 Assessment and Plan Assessment and Plan 72-year-old female admitted for Lumbar drain placement for normal pressure hydrocephalus. Overnight observation. Neurosurgery following. PT consult in a.m. History of hypertension History of hyperlipidemia History of anxiety disorder Smoker patient counseled Thank you for this consult we'll follow patient in-house with you Kanwal Dunn MD Mar 09, 2017 15:25
[2017-03-09 16:15] LABS: GROSS BLOOD TUBE #1 0 (0); GROSS BLOOD TUBE #2 0 (0); SUPERNATE COLOR TUBE #1 CLEAR (CLEAR); SUPERNATE COLOR TUBE #2 CLEAR (CLEAR); VOLUME TUBE # 2 1.5 ML
[2017-03-09 16:16] LABS: CSF LYMPHOCYTES 0 %; CSF NEUTROPHILS 0 %; GROSS BLOOD TUBE #3 0 (0); SUPERNATE COLOR TUBE #3 CLEAR (CLEAR); SUPERNATE COLOR TUBE #4 CLEAR (CLEAR); WBC TUBE #4 0 /MM3 (0-10)
[2017-03-09] MEDS ORDERED: ZOLPIDEM TARTRATE 5 MG TAB PO PRN ×2 (16:30→21:00)
[2017-03-09] MEDS: CHOLESTYRAMINE 4 GM PACKET PO SCH (17:58)
[2017-03-09] MEDS: SODIUM CHLORIDE 0.9% FLUSH 5 ML FLUSH IVF SCH (20:07)
[2017-03-09] MEDS: DOCUSATE SODIUM 100 MG CAP PO SCH (20:08)
[2017-03-09] MEDS: QUEtiapine FUMARATE 25 MG TAB PO SCH (20:11)
[2017-03-09] MEDS ORDERED: DOCUSATE SODIUM 100 MG CAP PO SCH (21:00)
[2017-03-10 00:52] VITALS: BP 105/58; PULSE 58; RESP 17; TEMP 97.6; O2SAT 99
[2017-03-10 05:28] VITALS: BP 95/54; PULSE 54; RESP 17; TEMP 97; O2SAT 96
--- NOTE | 2017-03-10 05:45 | MB ---
cc: MARGRET CARPIO M.D. DATE OF CONSULTATION 03/09/2017 REASON FOR CONSULTATION She is a 72-year-old woman seen today in neurological consultation in regards to normal pressure hydrocephalus. The chart is reviewed. The patient is unable to give much detailed history. HISTORY OF PRESENT ILLNESS She was seen this evening, a couple of hours ago and she denies headaches, denies any acute complaints. She feels well and wanted to rest. She was not very participant and enthusiastic about this evaluation. Apparently she was at [facility] in January and subsequently came for evaluation for the possibility of normal-pressure hydrocephalus. There is a history of a memory loss, some difficulty with gait and incontinence leading to the triad consistent with a normal pressure hydrocephalus. The patient denies much of a neurologic history but again she is not a reliable historian. I looked at the data available. MEDICATIONS Currently she is on - 1. Protonix. 2. TriCor. 3. Vitamins. 4. Ambien. 5. Quetiapine 25 mg at bedtime. 6. Colace. 7. Cholestyramine. 8. Hydrocodone. 9. Morphine. 10. Zolpidem. NEUROLOGICAL EXAMINATION On exam she was awakened, became reasonably alert. She was not enthusiastic about the exam. She knew her age and knows basic information about this evaluation. She knew the month and the year but she missed the date. She knew the day of the week. She is unable to give me details about recent medical problems. Her ocular movements were full as well as visual gao. There was no facial weakness. Her speech was appropriate. She follows simple commands and has 1-2+ reflexes throughout. Plantar responses were flexor. LABORATORY DATA I looked at the laboratory data. Spinal fluid shows WBC and RBCs to be 0. Glucose 51 and protein in the spinal fluid this 32.8. Serum chemistry is normal. CBC essentially normal. CT brain shows ventriculomegaly with some associated microvascular disease. ASSESSMENT Ventriculomegaly. There is the triad suggesting the possibility of normal-pressure hydrocephalus. There is memory loss, poor cognition and gait disorder along with incontinence. A lumbar drain was placed. She was seen by physical therapy and she is to be reevaluated tomorrow for gait. At this point, though difficult for me to evaluate, as far as I could gather by talking to the staff, there is no obvious improvement in cognition, etc., but this is evidently early. PLAN We will need physical therapy reevaluation and we certainly also need to have more information on her neurological background. I do not know if she was being followed by a neurologist as outpatient but I presume so and she should follow with that neurologist for continuing care as outpatient. I will follow her while she is in the hospital and make additional comments accordingly. Thank you for asking us to participate in her care. MD MARIANELA Steel/SSB /9:19 PM /5:27 AM
[2017-03-10] MEDS: CHOLESTYRAMINE 4 GM PACKET PO SCH ×2 (06:06→17:28)
[2017-03-10] MEDS: MULTIVITAMIN TAB PO SCH (08:26)
[2017-03-10] MEDS: PANTOPRAZOLE SOD 40 MG DELAYED RELEASE TAB PO SCH (08:27)
[2017-03-10] MEDS: LIPASE/PROTEASE/AMYLASE (24,000/76,000/120,000) CAP PO SCH ×3 (08:27→17:23)
[2017-03-10] MEDS: FENOFIBRATE 145 MG TAB PO SCH (08:27)
[2017-03-10] MEDS: DOCUSATE SODIUM 100 MG CAP PO SCH ×2 (08:27→20:51)
[2017-03-10] MEDS: DICYCLOMINE HCL 20 MG TAB PO SCH ×3 (08:27→17:23)
[2017-03-10] MEDS: SODIUM CHLORIDE 0.9% FLUSH 5 ML FLUSH IVF SCH ×2 (08:27→21:00)
--- NOTE | 2017-03-10 08:34 | HHI.PR ---
Subjective Remarks awake and alert, up on chair denies any headache, nausea or vomiting, dizziness very feisty Objective Vitals Vital Signs Date Time Temp Pulse Resp B/P (MAP) Pulse Ox O2 Delivery O2 Flow Rate FiO2 03/10/17 05:28 97.0 54 17 95/54 (68) 96 03/10/17 00:52 97.6 58 17 105/58 (74) 99 03/09/17 20:30 Room Air 03/09/17 20:18 97.9 55 17 130/60 (83) 99 03/09/17 17:36 97.6 53 18 136/63 (87) 97 03/09/17 15:50 51 16 134/81 (98) 97 03/09/17 15:20 54 18 128/79 (95) 99 03/09/17 15:05 52 16 130/75 (93) 99 03/09/17 14:50 97.9 56 18 131/81 (98) 96 03/09/17 11:17 95 Room Air 03/09/17 10:23 96.4 50 20 153/84 (107) 98 03/09/17 10:23 96.4 50 20 153/84 (107) 98 I/O 03/09/17 03/09/17 03/09/17 03/10/17 03/10/17 03/10/17 07:00 15:00 23:00 07:00 15:00 23:00 Intake Total 50 ml 600 ml Output Total 50 ml 70 ml Balance 50 ml -50 ml 530 ml Intake Oral 240 ml IV Total 50 ml 360 ml Output Drainage Total 50 ml 70 ml # Voids 3 # Bowel Movements 1 Result Diagram: 03/09/17 1050 03/09/17 1050 Objective Remarks awake and alert, oriented x 3, speech clear, feisty anicteric lungs clear regular rhythma abdmen soft, nontender back- LP drain in place extremities no edema motor 5/5 all extremities gait testing - PT will see her this am Procedures 03/09- lumbar drain placement A/P Assessment and Plan 72-year-old female admitted for Lumbar drain placement for normal pressure hydrocephalus. Overnight observation. Neurosurgery following. PT to evaluate this am- gait History of hypertension History of hyperlipidemia History of anxiety disorder Smoker patient counseled- " I will stop" CM consult for DC planning Kanwal Dunn MD Mar 10, 2017 08:34
[2017-03-10 08:41] VITALS: BP 110/61; PULSE 47; RESP 18; TEMP 98.2; O2SAT 100
[2017-03-10] MEDS ORDERED: PANTOPRAZOLE SOD 40 MG DELAYED RELEASE TAB PO SCH (09:00)
--- NOTE | 2017-03-10 09:11 | RADRPT ---
EXAM DATE/TIME: 03/09/2017 14:08 [place] COMPARISON: No previous studies available for comparison. INDICATIONS : Patient presents with lower back pain in need of lumbar drain placement. MEDICAL HISTORY : Arthritis Urinary incontinence Hyperlipemia Claustrophobia Pancreatitis IBS DDD Lumbar degeneration SURGIAL HISTORY : Appendectomy Hysterectomy Cholecystectomy Tonsillectomy Lumbar laminectomy and fusion Shoulder surgery ENCOUNTER: Initial ACUITY: >1 year PAIN SCORE: 1/10 LOCATION: N/A LUMBAR PUNCTURE TIME: 1422 hours FLUORO TIME: 2.5 minutes IMAGE SERIES: 0 SEDATION TIME: 30 minutes LEVEL: Tip of lumbar drain was placed at T9 FLUID: 8 cc of clear CSF was collected and sent to the laboratory for analysis. MEDICATION(S): 1.) 2 mg midazolam (Versed) IV 2.) 100 mcg fentanyl (Sublimaze) IV DEVICE(S): 1.) 5 Fijian lumbar drain catheter PROCEDURE : 1. Fluoroscopically guided lumbar drain placement. 2. Conscious sedation with continuous EKG and oximetry monitoring. The risks, benefits and alternatives to the procedure were explained and verbal and written consent w as obtained. The site was prepped in sterile fashion. Full sterile technique was used, including ca p, mask, sterile gloves and gown and a large sterile sheet. Hand hygiene and 2% chlorhexidine and/or betadine/alcohol prep was utilized per protocol for cutaneous antisepsis. The skin and subcutaneous tissues were infiltrated with local anesthetic solution. With fluoroscopic guidance the lumbar thecal sac was punctured with a 14 gauge Touhy needle at the L3 -L4 level and a lumbar drain was placed with its tip at the T9 level and the catheter was sutured in place. CSF was identified returning from the catheter at the termination of the procedure. Conscious sedation was performed with the prescribed dosages and duration as above in the presence of an independent trained radiology nurse to assist in the monitoring of the patient. EKG and oximetry remained stable throughout the procedure. The patient tolerated the procedure well and there were n o complications. The patient was sent to post anesthesia recovery in stable condition. CONCLUSION: Uncomplicated lumbar drain placement as above. Robert Nguyễn Jr., MD on March 10, 2017 at 9:08 Board Certified Radiologist. This report was verified electronically.
[2017-03-10] MEDS: SODIUM CHLOR 0.45% 1000 ML IV SCH (11:00)
--- NOTE | 2017-03-10 11:30 | HHI.NSPN ---
Note Status Status: Progress Note Interval History Interval History Ms. Esparza is a 72 year old female who presents today for placement of lumbar drain for suspected Normal Pressure Hydrocephalus. Ms. Esparza initially underwent neurosurgical evaluation while she was at at [facility] on 01/19/17 following her discharge from [facility] for treatment of Sepsis. Neurosurgery was asked to evaluate for hydrocephalus found on her CT Head while at [place]. A CT Head was obtained as the patient was noted to be confused and had a fall. I had previously spoken with her daughter on the phone who is from out of state and notes the patient has had history of progressive memory loss, gait instability and urine incontinence. A lumbar drain was not placed at that time until her infection cleared. She was followed in the office. Her symptoms has been getting worse. She has been mostly wheelchair bound. 03/10: currently draining CSF. awaiting evaluation with PT today. Labs, Micro, & Vital Signs Results Date Time Temp Pulse Resp B/P (MAP) Pulse Ox O2 Delivery O2 Flow Rate FiO2 03/10/17 08:41 98.2 47 18 110/61 (77) 100 03/10/17 05:28 97.0 54 17 95/54 (68) 96 03/10/17 00:52 97.6 58 17 105/58 (74) 99 03/09/17 20:30 Room Air 03/09/17 20:18 97.9 55 17 130/60 (83) 99 03/09/17 17:36 97.6 53 18 136/63 (87) 97 03/09/17 15:50 51 16 134/81 (98) 97 03/09/17 15:20 54 18 128/79 (95) 99 03/09/17 15:05 52 16 130/75 (93) 99 03/09/17 14:50 97.9 56 18 131/81 (98) 96 03/11/17 07:00 Output Total 30 ml Balance -30 ml Constitutional Vital Signs Date Time Temp Pulse Resp B/P (MAP) Pulse Ox O2 Delivery O2 Flow Rate FiO2 03/10/17 08:41 98.2 47 18 110/61 (77) 100 03/10/17 05:28 97.0 54 17 95/54 (68) 96 03/10/17 00:52 97.6 58 17 105/58 (74) 99 03/09/17 20:30 Room Air 03/09/17 20:18 97.9 55 17 130/60 (83) 99 03/09/17 17:36 97.6 53 18 136/63 (87) 97 03/09/17 15:50 51 16 134/81 (98) 97 03/09/17 15:20 54 18 128/79 (95) 99 03/09/17 15:05 52 16 130/75 (93) 99 03/09/17 14:50 97.9 56 18 131/81 (98) 96 03/11/17 07:00 Output Total 30 ml Balance -30 ml Review of Systems Constitutional: DENIES: Fever, Chills Respiratory: DENIES: Shortness of breath Cardiovascular: DENIES: Chest pain Physical Exam Ms. Esparza is alert, awake and oriented to time, place and person. Speech is fluent. Lumbar drain secured in place. Currently layed flat with CSF draining which is clear. Cranial nerve examination: pupils equal, round, and reactive to light. Extra- ocular movements are intact. Facial motor are symmetrical. Neck is soft and supple. Motor: moving all four extremities Sensory examination is intact to light touch in both the upper and lower extremities, symmetrically. Medications Current Medications Current Medications Medications (Trade) Dose Ordered Sig/Wan Route PRN Reason Start Time Stop Time Status Last Admin Dose Admin Ondansetron HCl (Zofran Inj) 4 mg Q6H PRN IV PUSH NAUSEA OR VOMITING 03/09/17 10:15 Acetaminophen/ Hydrocodone Bitart ([place] 10-325 Mg) 2 tab Q4H PRN PO PAIN SCALE 6 TO 10 03/09/17 10:15 Morphine Sulfate (Morphine Inj) 2 mg Q2H PRN IV PUSH breakthrough pain 03/09/17 10:15 Clonidine (Catapres) 0.1 mg Q6H PRN PO SYS BP GREATER THAN 170 MMHG 03/09/17 10:15 Cholestyramine Resin (Questran 4 Gm Pkt) 4 gm Q12HR@0600,1800 PO 03/09/17 18:00 03/10/17 06:06 Dicyclomine HCl (Bentyl) 20 mg TID PO 03/09/17 13:00 03/10/17 08:27 Ergocalciferol (Drisdol) 50,000 units Q7D PO 03/09/17 12:00 Fenofibrate (Tricor) 145 mg DAILY PO 03/10/17 09:00 03/10/17 08:27 Multivitamins (Theragran) 1 tab DAILY PO 03/10/17 09:00 03/10/17 08:26 Amylase/Lipase/ Protease (Creon 24-76-120) 1 cap TID PO 03/09/17 13:00 03/10/17 08:27 Quetiapine Fumarate (SEROquel) 25 mg HS PO 03/09/17 21:00 03/09/17 20:11 Sodium Chloride 1,000 ml @ 30 mls/hr Q24H IV 03/09/17 11:00 03/09/17 14:13 Cefazolin Sodium/ Dextrose 50 ml @ 100 mls/hr EXECUTIVE KITCHEN MANAGER IV 03/09/17 11:00 03/12/17 10:59 03/09/17 14:13 Dextrose (D50w (Vial) Inj) 50 ml UNSCH PRN IV PUSH HYPOGLYCEMIA-SEE COMMENTS 03/09/17 11:45 Glucagon (Glucagon Inj) 1 mg UNSCH PRN OTHER HYPOGLYCEMIA-SEE COMMENTS 03/09/17 11:45 IV Flush (NS Flush) 2 ml UNSCH PRN IVF FLUSH AFTER USING IV ACCESS 03/09/17 16:30 IV Flush (NS Flush) 2 ml BID IVF 03/09/17 21:00 03/09/17 20:07 Docusate Sodium (Colace) 100 mg BID PO 03/09/17 21:00 03/10/17 08:27 Pantoprazole Sodium (Protonix) 40 mg DAILY PO 03/10/17 09:00 03/10/17 08:27 Acetaminophen/ Hydrocodone Bitart (Mode 10-325 Mg) 1 tab Q4H PRN PO PAIN SCALE 1 TO 5 03/09/17 16:30 Morphine Sulfate (Morphine Inj) 2 mg Q2H PRN IV PUSH PAIN SCALE 1 TO 6 03/09/17 16:30 Acetaminophen (Tylenol) 650 mg Q4H PRN PO TEMPERATURE > 101.5 F 03/09/17 16:30 Zolpidem Tartrate (Ambien) 5 mg HS PRN PO INSOMNIA 03/09/17 16:30 Albuterol Sulfate (Albuterol Neb) 2.5 mg Q4HR NEB PRN NEB WHEEZING 03/09/17 16:30 Medical Decision Making MDM Remarks 72 y/o female with suspected NPH s/p placement of lumbar drain for CSF draining Plan Plan Remarks await PT gait reevaluation, cont CSF draining per protocol nonchemical dvt prophylaxis in view of lumbar drain Protonix for stress ulcer prophylaxis medical mgt following appreciate assistance neurology consultation appreciated addendum: PT eval notes no significant change in gait, will continue CSF draining and reassess tomorrow Tamie Allred Mar 10, 2017 11:30
[2017-03-10 12:23] VITALS: BP 101/68; PULSE 52; RESP 18; TEMP 97.1; O2SAT 100
[2017-03-10 16:11] VITALS: BP 112/60; PULSE 55; RESP 18; TEMP 97.8; O2SAT 100
--- NOTE | 2017-03-10 18:48 | HHI.PR ---
Review/Management Daily Summary 03/10 she was more alert and participant today around 14:30 hrs said bladder control better and ambulating "on her own feet" i did not locate nursing staff to confirm info looked brighter but yesterday i saw her later in the evening PT following Subjective Subjective Comments No acute events reported No headache Active Medications Current Medications Medications (Trade) Dose Ordered Sig/Wan Route Start Time Stop Time Status Last Admin (Zofran Inj) 4 mg Q6H PRN IV PUSH 03/09/17 10:15 ([place] 10-325 Mg) 2 tab Q4H PRN PO 03/09/17 10:15 (Morphine Inj) 2 mg Q2H PRN IV PUSH 03/09/17 10:15 (Catapres) 0.1 mg Q6H PRN PO 03/09/17 10:15 (Questran 4 Gm Pkt) 4 gm Q12HR@0600,1800 PO 03/09/17 18:00 03/10/17 17:28 (Bentyl) 20 mg TID PO 03/09/17 13:00 03/10/17 17:23 (Drisdol) 50,000 units Q7D PO 03/09/17 12:00 (Tricor) 145 mg DAILY PO 03/10/17 09:00 03/10/17 08:27 (Theragran) 1 tab DAILY PO 03/10/17 09:00 03/10/17 08:26 (Creon 24-76-120) 1 cap TID PO 03/09/17 13:00 03/10/17 17:23 (SEROquel) 25 mg HS PO 03/09/17 21:00 03/09/17 20:11 Sodium Chloride 1,000 ml @ 30 mls/hr Q24H IV 03/09/17 11:00 03/09/17 14:13 Cefazolin Sodium/ Dextrose 50 ml @ 100 mls/hr TRANSPLANTER ORCHID IV 03/09/17 11:00 03/12/17 10:59 03/09/17 14:13 (D50w (Vial) Inj) 50 ml UNSCH PRN IV PUSH 03/09/17 11:45 (Glucagon Inj) 1 mg UNSCH PRN OTHER 03/09/17 11:45 (NS Flush) 2 ml UNSCH PRN IVF 03/09/17 16:30 (NS Flush) 2 ml BID IVF 03/09/17 21:00 03/09/17 20:07 (Colace) 100 mg BID PO 03/09/17 21:00 03/10/17 08:27 (Protonix) 40 mg DAILY PO 03/10/17 09:00 03/10/17 08:27 ([place] 10-325 Mg) 1 tab Q4H PRN PO 03/09/17 16:30 (Morphine Inj) 2 mg Q2H PRN IV PUSH 03/09/17 16:30 (Tylenol) 650 mg Q4H PRN PO 03/09/17 16:30 (Ambien) 5 mg HS PRN PO 03/09/17 16:30 (Albuterol Neb) 2.5 mg Q4HR NEB PRN NEB 03/09/17 16:30 Allergies Allergies Coded Allergies No Known Allergies (Mypppwkj20/25/17) Exam I&O / VS 03/10/17 03/10/17 03/11/17 15:00 23:00 07:00 Intake Total 480 ml Output Total 70 ml 30 ml Balance 410 ml -30 ml Intake Oral 480 ml Output Drainage Total 70 ml 30 ml # Voids 3 # Bowel Movements 1 Vital Signs Date Time Temp Pulse Resp B/P (MAP) Pulse Ox O2 Delivery O2 Flow Rate FiO2 03/10/17 16:11 97.8 55 18 112/60 (77) 100 03/10/17 12:23 97.1 52 18 101/68 (79) 100 03/10/17 08:41 98.2 47 18 110/61 (77) 100 03/10/17 05:28 97.0 54 17 95/54 (68) 96 03/10/17 00:52 97.6 58 17 105/58 (74) 99 03/09/17 20:30 Room Air 03/09/17 20:18 97.9 55 17 130/60 (83) 99 Respiratory: Lungs CTA, Non-labored respirations, Symmetrical expansion Cardiology: Normal rate, Normal peripheral perfusion, Regular Rhythm Musculoskeletal: ROM, Tenderness, Swelling Objective Micro and Labs Date/Time Source Procedure Growth Status 03/09/17 14:22 Cerebral Spinal Fluid Lumbar Puncture Gram Stain - Final Resulted 03/09/17 14:22 Cerebral Spinal Fluid Lumbar Puncture CSF Culture - Preliminary NO GROWTH IN 24 HOURS. Resulted Sawyer Watson MD Mar 10, 2017 18:48
[2017-03-10 20:00] VITALS: BP 104/55; PULSE 56; RESP 18; TEMP 98.1; O2SAT 98
[2017-03-10] MEDS: QUEtiapine FUMARATE 25 MG TAB PO SCH (20:51)
[2017-03-11] VITALS: BP 83/51; PULSE 46; RESP 16; TEMP 97.8; O2SAT 98
[2017-03-11 04:00] VITALS: BP 91/55; PULSE 43; RESP 18; TEMP 97.8; O2SAT 100
[2017-03-11] MEDS: CHOLESTYRAMINE 4 GM PACKET PO SCH (06:00)
[2017-03-11] MEDS: SODIUM CHLORIDE 0.9% FLUSH 5 ML FLUSH IVF SCH (08:25)
[2017-03-11] MEDS: PANTOPRAZOLE SOD 40 MG DELAYED RELEASE TAB PO SCH (08:25)
[2017-03-11] MEDS: LIPASE/PROTEASE/AMYLASE (24,000/76,000/120,000) CAP PO SCH ×2 (08:25→11:55)
[2017-03-11] MEDS: FENOFIBRATE 145 MG TAB PO SCH (08:25)
[2017-03-11] MEDS: DOCUSATE SODIUM 100 MG CAP PO SCH (08:25)
[2017-03-11] MEDS: DICYCLOMINE HCL 20 MG TAB PO SCH ×2 (08:25→11:55)
[2017-03-11] MEDS: MULTIVITAMIN TAB PO SCH (08:25)
[2017-03-11] MEDS: SODIUM CHLOR 0.45% 1000 ML IV SCH (08:29)
[2017-03-11 08:30] VITALS: BP 105/59; PULSE 48; RESP 18; TEMP 97.3; O2SAT 100
--- NOTE | 2017-03-11 08:56 | PD.RAD ---
Post Procedure Progress Note Pre Procedure Diagnosis: (1) Impaired gait Post Procedure Diagnosis: (1) Impaired gait Procedure Date: Mar 11, 2017 Supervising Radiologist: Robert Nguyễn JR Proceduralist/Assist: Ajith Hooks, RT(R), RT Katharine(R) Anesthesia: Conscious Sedation Plan of Activity Patient to Unit: ROPU Patient Condition: Good See PACS Report for procedural detail/treatment Spinal Procedure Lumbar Drain L3-L4 Fluid Removal (CCs): 8 Fluid Description: Clear Biopsy: Lumbar drain placed. Access sublaminar at L3-4 with tip of catheter at T9-10. Clear CSF obtained and sent as requested. Jr. Gopi,Robert Eng MD Mar 11, 2017 08:56
--- NOTE | 2017-03-11 10:16 | HHI.PR ---
Subjective Remarks awake and alert, very fesity motivated with PT- up and ambulating with a walker with PT supervision- tends to veer to the right continent of urine Objective Vitals Vital Signs Date Time Temp Pulse Resp B/P (MAP) Pulse Ox O2 Delivery O2 Flow Rate FiO2 03/11/17 08:30 97.3 48 18 105/59 (74) 100 03/11/17 04:00 97.8 43 18 91/55 (67) 100 03/11/17 00:00 97.8 46 16 83/51 (62) 98 03/10/17 20:00 98.1 56 18 104/55 (71) 98 03/10/17 16:11 97.8 55 18 112/60 (77) 100 03/10/17 12:23 97.1 52 18 101/68 (79) 100 I/O 03/10/17 03/10/17 03/10/17 03/11/17 03/11/17 03/11/17 07:00 15:00 23:00 07:00 15:00 23:00 Intake Total 600 ml 480 ml Output Total 70 ml 70 ml 50 ml Balance 530 ml 410 ml -50 ml Intake Oral 240 ml 480 ml IV Total 360 ml Output Drainage Total 70 ml 70 ml 50 ml # Voids 3 3 2 3 # Bowel Movements 1 1 Result Diagram: 03/09/17 1050 03/09/17 1050 Imaging Last Impressions Lumbar Puncture Fluoroscopy 03/09/17 0000 Signed Impressions: Service Date/Time: Thursday, March 09, 2017 14:08 - CONCLUSION: Uncomplicated lumbar drain placement as above. Robert Nguyễn Jr., MD Objective Remarks awake and alert, oriented x 3, speech clear, feisty anicteric lungs clear regular rhythm back- LP drain in place extremities no edema motor 5/5 all extremities gait testing - walking with a walker- tends to veer to the right Procedures 03/09- lumbar drain placement A/P Assessment and Plan 72-year-old female admitted for Lumbar drain placement for normal pressure hydrocephalus.S/P Lumbar drain placement 03/10 drain to be removed today Neurosurgery ff- possibel DC History of hypertension History of hyperlipidemia History of anxiety disorder Smoker patient counseled- " I will stop". reinforced CM consult - will need home PT- arrange for home PT daily states has walker at home OP ff up with PCP Kanwal Dunn MD Mar 11, 2017 10:16
--- NOTE | 2017-03-11 10:29 | HHI.FF ---
Face to Face Verification Diagnosis: (1) Normal pressure hydrocephalus (2) HTN (hypertension) (3) Impaired cognition (4) Urinary incontinence (5) Impaired activities of daily living (6) Impaired gait (7) Impaired mobility and activities of daily living Physical Therapy Order: Evaluate and Treat, Improve ambulation, Strength and gait training Home Health Nursing Order: Medical education Signs/symptoms of disease process Nursing assessment with vital signs I have seen patient Carlee Esparza on 03/11/17. My clinical findings support the need for the requested home health care services because: Ltd mobility - disease progression Deconditioned w/ increased weakness Impaired cognition/judgement High risk of falls I certify that my clinical findings support that this patient is homebound because: Post-op weakness Unsteady gait/balance Unsafe to leave home unassisted Unable to use public transportation Maira Delcid Mar 11, 2017 10:29
--- NOTE | 2017-03-11 11:57 | HHI.NSPN ---
Note Status Status: Progress Note Interval History Interval History Ms. Esparza is a 72 year old female who presents today for placement of lumbar drain for suspected Normal Pressure Hydrocephalus. Ms. Esparza initially underwent neurosurgical evaluation while she was at at [facility] on 01/19/17 following her discharge from [facility] for treatment of Sepsis. Neurosurgery was asked to evaluate for hydrocephalus found on her CT Head while at [place]. A CT Head was obtained as the patient was noted to be confused and had a fall. I had previously spoken with her daughter on the phone who is from out of state and notes the patient has had history of progressive memory loss, gait instability and urine incontinence. A lumbar drain was not placed at that time until her infection cleared. She was followed in the office. Her symptoms has been getting worse. She has been mostly wheelchair bound. 03/10: currently draining CSF. awaiting evaluation with PT today. 03/11: ambulated with PT, she reports her walking has improved, also has had better control of urine since drain placement. eager to go home. denies headaches, fevers or chills. Labs, Micro, & Vital Signs Results Date Time Temp Pulse Resp B/P (MAP) Pulse Ox O2 Delivery O2 Flow Rate FiO2 03/11/17 08:30 97.3 48 18 105/59 (74) 100 03/11/17 04:00 97.8 43 18 91/55 (67) 100 03/11/17 00:00 97.8 46 16 83/51 (62) 98 03/10/17 20:00 98.1 56 18 104/55 (71) 98 03/10/17 16:11 97.8 55 18 112/60 (77) 100 03/10/17 12:23 97.1 52 18 101/68 (79) 100 Constitutional Vital Signs Date Time Temp Pulse Resp B/P (MAP) Pulse Ox O2 Delivery O2 Flow Rate FiO2 03/11/17 08:30 97.3 48 18 105/59 (74) 100 03/11/17 04:00 97.8 43 18 91/55 (67) 100 03/11/17 00:00 97.8 46 16 83/51 (62) 98 03/10/17 20:00 98.1 56 18 104/55 (71) 98 03/10/17 16:11 97.8 55 18 112/60 (77) 100 03/10/17 12:23 97.1 52 18 101/68 (79) 100 Physical Exam Ms. Esparza is alert, awake and oriented to time, place and person. Speech is fluent. Lumbar drain secured in place. Site is clean. CSF clear Cranial nerve examination: pupils equal, round, and reactive to light. Extra- ocular movements are intact. Facial motor are symmetrical. Neck is soft and supple. Motor: moving all four extremities Sensory examination is intact to light touch in both the upper and lower extremities, symmetrically. Gait: ambulated with rolling walker, she is taking a bit longer stride and walked longer distance compared to baseline. Medications Current Medications Current Medications Medications (Trade) Dose Ordered Sig/Wan Route PRN Reason Start Time Stop Time Status Last Admin Dose Admin Ondansetron HCl (Zofran Inj) 4 mg Q6H PRN IV PUSH NAUSEA OR VOMITING 03/09/17 10:15 Acetaminophen/ Hydrocodone Bitart ([place] 10-325 Mg) 2 tab Q4H PRN PO PAIN SCALE 6 TO 10 03/09/17 10:15 Morphine Sulfate (Morphine Inj) 2 mg Q2H PRN IV PUSH breakthrough pain 03/09/17 10:15 Clonidine (Catapres) 0.1 mg Q6H PRN PO SYS BP GREATER THAN 170 MMHG 03/09/17 10:15 Cholestyramine Resin (Questran 4 Gm Pkt) 4 gm Q12HR@0600,1800 PO 03/09/17 18:00 03/11/17 06:00 Dicyclomine HCl (Bentyl) 20 mg TID PO 03/09/17 13:00 03/11/17 08:25 Ergocalciferol (Drisdol) 50,000 units Q7D PO 03/09/17 12:00 Fenofibrate (Tricor) 145 mg DAILY PO 03/10/17 09:00 03/11/17 08:25 Multivitamins (Theragran) 1 tab DAILY PO 03/10/17 09:00 03/11/17 08:25 Amylase/Lipase/ Protease (Creon 24-76-120) 1 cap TID PO 03/09/17 13:00 03/11/17 08:25 Quetiapine Fumarate (SEROquel) 25 mg HS PO 03/09/17 21:00 03/10/17 20:51 Sodium Chloride 1,000 ml @ 30 mls/hr Q24H IV 03/09/17 11:00 03/11/17 08:29 Cefazolin Sodium/ Dextrose 50 ml @ 100 mls/hr BUSINESS OBJECTS REPORT DEVELOPER IV 03/09/17 11:00 03/12/17 10:59 03/09/17 14:13 Dextrose (D50w (Vial) Inj) 50 ml UNSCH PRN IV PUSH HYPOGLYCEMIA-SEE COMMENTS 03/09/17 11:45 Glucagon (Glucagon Inj) 1 mg UNSCH PRN OTHER HYPOGLYCEMIA-SEE COMMENTS 03/09/17 11:45 IV Flush (NS Flush) 2 ml UNSCH PRN IVF FLUSH AFTER USING IV ACCESS 03/09/17 16:30 IV Flush (NS Flush) 2 ml BID IVF 03/09/17 21:00 03/10/17 21:00 Docusate Sodium (Colace) 100 mg BID PO 03/09/17 21:00 03/11/17 08:25 Pantoprazole Sodium (Protonix) 40 mg DAILY PO 03/10/17 09:00 03/11/17 08:25 Acetaminophen/ Hydrocodone Bitart ([place] 10-325 Mg) 1 tab Q4H PRN PO PAIN SCALE 1 TO 5 03/09/17 16:30 Morphine Sulfate (Morphine Inj) 2 mg Q2H PRN IV PUSH PAIN SCALE 1 TO 6 03/09/17 16:30 Acetaminophen (Tylenol) 650 mg Q4H PRN PO TEMPERATURE > 101.5 F 03/09/17 16:30 Zolpidem Tartrate (Ambien) 5 mg HS PRN PO INSOMNIA 03/09/17 16:30 Albuterol Sulfate (Albuterol Neb) 2.5 mg Q4HR NEB PRN NEB WHEEZING 03/09/17 16:30 Medical Decision Making MDM Remarks 72 y/o female with suspected NPH s/p placement of lumbar drain for CSF draining, overall there is improvement in length of stride and distance following day 2 of CSF draining compared to baseline exam in office, pt also states herself that her gait and urine control is improved Plan Plan Remarks appreciate PT eval, appreciate medical assistance, dc lumbar drain, and keep flat in bed per protocol, patient discharge today, she will follow up in the office to discuss permanent MANAGER CONVENTION shunt cont nonchemical dvt prophylaxis in view of lumbar drain with SCDs and Tamie Mcallister Mar 11, 2017 11:57
--- NOTE | 2017-03-11 12:03 | HHI.DCPOC ---
Discharge Care Plan Diagnosis: (1) Normal pressure hydrocephalus Goals to Promote Your Health * To prevent worsening of your condition and complications * To maintain your health at the optimal level Directions to Meet Your Goals Take your medications as prescribed Follow your dietary instruction Follow activity as directed Keep your appointments as scheduled Take your immunizations and boosters as scheduled If your symptoms worsen call your PCP, if no PCP go to Urgent Care Center or Emergency Room Smoking is Dangerous to Your Health. Avoid second hand smoke Call the 24-hour hour crisis hotline for domestic abuse at Tamie Allred Mar 11, 2017 12:03
--- NOTE | 2017-03-11 12:03 | HHI.DS ---
Discharge Summary Admission Date Mar 09, 2017 at 17:07 Discharge Date: Mar 11, 2017 Admitting Diagnosis NPH, lumbar drain (1) Normal pressure hydrocephalus ICD Code: G91.2 - (Idiopathic) normal pressure hydrocephalus Brief History Ms. Esparza is a 72 year old female who presents today for placement of lumbar drain for suspected Normal Pressure Hydrocephalus. Ms. Esparza initially underwent neurosurgical evaluation while she was at at [facility] rehabilitation on 01/19/17 [address] her discharge from [facility] for treatment of Sepsis. Neurosurgery was asked to evaluate for hydrocephalus found on her CT Head while at [place]. A CT Head was obtained as the patient was noted to be confused and had a fall. I had previously spoken with her daughter on the phone [place] and notes the patient has had history of progressive memory loss, gait instability and urine incontinence. A lumbar drain was not placed at that time until her infection cleared. She was followed in the office. Her symptoms has been getting worse. She has been mostly wheelchair bound. CBC/BMP: 03/09/17 1050 03/09/17 1050 Significant Findings Laboratory Tests Test 03/09/17 10:50 03/09/17 14:22 Eosinophils (%) (Auto) 5.6 % (0.0-4.0) Estimat Glomerular Filtration Rate 55 ML/MIN (>89) Imaging Last Impressions Lumbar Puncture Fluoroscopy 03/09/17 0000 Signed Impressions: Service Date/Time: Thursday, March 09, 2017 14:08 - CONCLUSION: Uncomplicated lumbar drain placement as above. Robert Nguyễn Jr., MD Hospital Course Mr. Esparza underwent placement of lumbar drain, she was drained CSF per protocol. She was evaluated by Physical Therapy. Ms. Esparza showed improvement in her gait following the second day of CSF draining. Her drain was removed and will follow up with Dr. Gomez outpatient to discuss permanent drain. Pt Condition on Discharge: Stable Discharge Disposition: Disch w/ Home Health Serv Discharge Instructions DIET: Follow Instructions for: Heart Healthy Diet ACTIVITIES You can perform: Weight Bearing As Yi ADDITIONAL Activity Instructio: ambulate with assistance and assistive device. avoid falls. Follow up Referrals: PCP Follow-up - 03/14/17 with [facility] Medication Profile: No Active Prescriptions or Reported Tamie Wahl Mar 11, 2017 12:03
[2017-03-11 12:35] VITALS: BP 103/56; PULSE 55; RESP 18; TEMP 98.1; O2SAT 100
== END 2017-03-11 15:36 | disposition home health service (06) | DRG 57 ==
LOC: HRIP 09:57 → HROP 09:57 → N05A 17:07
PROVIDERS: ADMIT Neurological Surgery; ATTEND Neurological Surgery
PROC: 009U30Z Drainage of Spinal Canal with Drainage Device, Percutaneous Approach (ICD-10-PCS; principal; 2017-03-09)
DX: G91.2 (Idiopathic) normal pressure hydrocephalus (principal); I10 Essential (primary) hypertension; E78.5 Hyperlipidemia, unspecified; M19.90 Unspecified osteoarthritis, unspecified site; Z87.440 Personal history of urinary (tract) infections; F41.9 Anxiety disorder, unspecified; F17.200 Nicotine dependence, unspecified, uncomplicated; Z99.3 Dependence on wheelchair; R29.6 Repeated falls; R26.89 Other abnormalities of gait and mobility; R41.3 Other amnesia; R32 Unspecified urinary incontinence
CPT/HCPCS: 63741; 77003; 80048; 82945; 84157; 85025; 85610; 85730; 87070; 87205; 89051; 94150; 99152; 99153; C1755; J0690; J2250; J3010